=== PATIENT | male | born 1960 | race Caucasian/White ===

== ENCOUNTER 2017-11-05 21:29 | Emergency (ER) | payer OTHER ==
[~2017-11-05] VITALS: Ht 175.3 cm; Wt 79.4 kg
[~2017-11-05 21:29] MED LIST: ALBU90OI INH; ALBU90OI61 INH; BENADRYL25 MG PO; BENZ100A PO; Bactrim Ds Tab1 EACH PO; CEPH500 PO; CLIN300 PO; CLON1 PO; Colace100 MG PO; DOXE50 PO; DOXY100 PO; DOXY100T53 PO; FLUSAL2505 INH; FLUT44OIA INH; HYDACE10B PO; HYDACE5 PO; IBUP600 PO; IBUP800 PO; Keflex500 MG PO; L-THEANINE25 GM PO; LEVFLO500 PO; LISI10 PO; LISI5 PO; LOVA40 PO; OLAN20 MM; PALI3TAB IM; PARO30 PO; PAXIL; PRED20 PO; PROAIR RESPICL90 MCG IH; Prednisone20 MG PO; SULTRIDS PO; TIOT18 IH; TRAZODONE; TRIA80TC TOP; Trihexyphenidyl2 MG PO; Tussionex Penn480 ML PO; ZYPREXA; Zyprexa PO
[2017-11-05] MEDS ORDERED: ANORO ELLIPTA1 EACH INH (22:24)
[2017-11-05 22:30] LABS: BASOPHILS ABSOLUTE AUTO 0.06 K/mm3 (0.00-0.23); BASOPHILS PERCENT AUTO 1 % (0-2); EOSINOPHILS ABSOLUTE AUTO 0.79 K/mm3 (0.00-0.68); EOSINOPHILS PERCENT AUTO 7 % (0-6); Hemoglobin 13.5 g/dL (13.5-17.5); IMMATURE GRAN ABSOLUTE AUTO 0.13 K/mm3 (0.00-0.10); IMMATURE GRAN PERCENT AUTO 1 % (0-1); LYMPHOCYTES ABSOLUTE AUTO 2.95 K/mm3 (0.84-5.20); LYMPHOCYTES PERCENT AUTO 26 % (21-46); MONOCYTES ABSOLUTE AUTO 0.94 K/mm3 (0.16-1.47); MONOCYTES PERCENT AUTO 8 % (4-13); Mean Corpuscular HGB 33.3 pg (26.0-34.0); Mean Corpuscular HGB Conc 33.8 g/dL (31.5-36.5); Mean Corpuscular Volume 99 fL (80-100); Mean Platelet Volume 10.5 fL (9.1-12.4); NEUTROPHILS ABSOLUTE AUTO 6.34 K/mm3 (1.96-9.15); NEUTROPHILS PERCENT AUTO 57 % (41-73); Platelet Count 221 K/mm3 (150-400); RDW Coefficient Variation 12.6 % (11.7-14.2); RDW Standard Deviation 45.5 fL (35.1-46.3); Red Blood Cell Count 4.06 M/mm3 (4.30-5.90); White Blood Cell Count 11.21 K/mm3 (4.00-11.30)
[2017-11-05 22:51] LABS: Alanine Aminotransfer (ALT/SGP 30 U/L (12-78); Albumin, Blood 3.7 g/dL (3.4-5.0); Albumin/Globulin Ratio 1.3 (0.8-1.8); Alk Phos 89 U/L (50-136); Anion Gap 6 mmol/L (6-16); Aspartate Aminotrans (AST/SGOT 46 U/L (12-37); Bilirubin, Total 0.3 mg/dL (0.1-1.0); Blood Urea Nitrogen 17 mg/dL (8-24); Bun/Creatinine Ratio 15.3 (12.0-20.0); CO2, Blood 26 mmol/L (21-32); Calcium, Blood 8.1 mg/dL (8.5-10.1); Chloride, Blood 110 mmol/L (98-108); Creatinine, Blood 1.11 mg/dL (0.60-1.20); Globulin, Blood 2.9 g/dL (2.2-4.0); Glomerular Filtration Rate >60 (60-); Glucose, Blood 96 mg/dL (70-99); Potassium, Blood 4.7 mmol/L (3.5-5.5); Sodium, Blood 142 mmol/L (136-145); Total Protein, Blood 6.6 g/dL (6.4-8.2); Troponin I <0.015 ng/mL (0.000-0.040)
[2017-11-05] MEDS ORDERED: Prednisone20 MG PO (23:50)
[2017-11-05] MEDS ORDERED: SPIRIVA RESPIMAT4 G1 INH (23:50)
== END 2017-11-06 00:06 | disposition home or self-care (01) ==
LOC: ER 21:29
PROVIDERS: Emergency Medicine
DX: J44.1 Chronic obstructive pulmonary disease with (acute) exacerbation (principal); I10 Essential (primary) hypertension; F32.9 Major depressive disorder, single episode, unspecified; F17.200 Nicotine dependence, unspecified, uncomplicated; Z88.0 Allergy status to penicillin; Z88.8 Allergy status to other drugs, medicaments and biological substances; Z79.899 Other long term (current) drug therapy
CPT/HCPCS: 36415; 71046; 80053; 84484; 85025; 93005; 93010; 94640; 94644; 99284

== ENCOUNTER → 2018-08-03 | Outpatient (CLI) | payer OTHER ==
[~2018-08-03] MED LIST changes: +ALBU3IS; +ANORO ELLIPTA1 EACH INH; +BUDE6HFA INH; +Benadryl25 MG; +Bupropion Xl150 MG PO; +DIAZ10 PO; +PALIPERIDONE ER9 MG PO; +SPIRIVA RESPIMAT4 G1 INH; +SPIRIVA RESPIMAT4 GM
[2018-08-03 12:30] LABS: U Amphetamine Screen Not Detected; U Barbituate Screen Not Detected; U Benzodiazapine Screen DETECTED; U Cannabinoids Screen Not Detected; U Cocaine Screen Not Detected; U Methadone Screen Not Detected; U Methamphetamine Screen Not Detected; U Opiates Screen Not Detected; U Phencyclidine Screen Not Detected
[2018-08-03 12:31] LABS: U Buprenorphine Screen Not Detected; U Oxycodone Screen Not Detected; U Propoxyphene Screen Not Detected
== END ==
LOC: LAB SHORT 11:32 → LAB 11:32
PROVIDERS: Registered Nurse
DX: Z51.81 Encounter for therapeutic drug level monitoring (principal); Z79.899 Other long term (current) drug therapy

== ENCOUNTER 2018-08-09 22:57 | Emergency (ER) | payer OTHER ==
[~2018-08-09] VITALS: Ht 175.3 cm; Wt 75.8 kg
[~2018-08-09 22:57] MED LIST changes: -ALBU3IS; -BUDE6HFA INH; -Benadryl25 MG; -Bupropion Xl150 MG PO; -DIAZ10 PO; -PALIPERIDONE ER9 MG PO; -SPIRIVA RESPIMAT4 GM
[2018-08-09 23:25] LABS: BASOPHILS ABSOLUTE AUTO 0.01 K/mm3 (0.00-0.23); BASOPHILS PERCENT AUTO 0 % (0-2); EOSINOPHILS ABSOLUTE AUTO 0.14 K/mm3 (0.00-0.68); EOSINOPHILS PERCENT AUTO 2 % (0-6); Hematocrit 33.4 % (37.0-53.0); Hemoglobin 11.1 g/dL (13.5-17.5); IMMATURE GRAN ABSOLUTE AUTO 0.04 K/mm3 (0.00-0.10); IMMATURE GRAN PERCENT AUTO 1 % (0-1); LYMPHOCYTES ABSOLUTE AUTO 1.11 K/mm3 (0.84-5.20); LYMPHOCYTES PERCENT AUTO 17 % (21-46); MONOCYTES ABSOLUTE AUTO 0.72 K/mm3 (0.16-1.47); MONOCYTES PERCENT AUTO 11 % (4-13); Mean Corpuscular HGB 32.6 pg (26.0-34.0); Mean Corpuscular HGB Conc 33.2 g/dL (31.5-36.5); Mean Corpuscular Volume 98 fL (80-100); Mean Platelet Volume 9.6 fL (9.1-12.4); NEUTROPHILS ABSOLUTE AUTO 4.56 K/mm3 (1.96-9.15); NEUTROPHILS PERCENT AUTO 69 % (41-73); Platelet Count 189 K/mm3 (150-400); White Blood Cell Count 6.58 K/mm3 (4.00-11.30)
[2018-08-09] MEDS ORDERED: Benadryl25 MG (23:37)
[2018-08-09] MEDS ORDERED: DIAZ10 PO (23:37)
[2018-08-09] MEDS ORDERED: PALIPERIDONE ER9 MG PO (23:37)
[2018-08-09] MEDS ORDERED: Bupropion Xl150 MG PO (23:37)
[2018-08-09] MEDS ORDERED: BUDE6HFA INH (23:39)
[2018-08-09] MEDS ORDERED: SPIRIVA RESPIMAT4 GM (23:39)
[2018-08-09] MEDS ORDERED: ALBU3IS (23:39)
[2018-08-09 23:44] LABS: Troponin I <0.015 ng/mL (0.000-0.040)
[2018-08-09 23:45] LABS: Alanine Aminotransfer (ALT/SGP 22 U/L (12-78); Albumin, Blood 3.4 g/dL (3.4-5.0); Albumin/Globulin Ratio 1.5 (0.8-1.8); Alk Phos 63 U/L (50-136); Anion Gap 8 mmol/L (6-16); Aspartate Aminotrans (AST/SGOT 19 U/L (12-37); Bilirubin, Total 0.1 mg/dL (0.1-1.0); Blood Urea Nitrogen 19 mg/dL (8-24); Bun/Creatinine Ratio 20.8 (12.0-20.0); CO2, Blood 23 mmol/L (21-32); Calcium, Blood 7.7 mg/dL (8.5-10.1); Chloride, Blood 112 mmol/L (98-108); Creatinine, Blood 0.91 mg/dL (0.60-1.20); Globulin, Blood 2.3 g/dL (2.2-4.0); Glomerular Filtration Rate >60 (60-); Glucose, Blood 90 mg/dL (70-99); Potassium, Blood 3.5 mmol/L (3.5-5.5); Sodium, Blood 143 mmol/L (136-145); Total Protein, Blood 5.7 g/dL (6.4-8.2)
[2018-08-10] MEDS ORDERED: Prednisone20 MG PO (01:18)
== END 2018-08-10 01:35 | disposition home or self-care (01) ==
LOC: ER 22:57
PROVIDERS: Emergency Medicine
DX: J44.1 Chronic obstructive pulmonary disease with (acute) exacerbation (principal); Z88.0 Allergy status to penicillin; Z88.8 Allergy status to other drugs, medicaments and biological substances; Z79.899 Other long term (current) drug therapy; Z79.52 Long term (current) use of systemic steroids; I10 Essential (primary) hypertension; F20.9 Schizophrenia, unspecified; F32.9 Major depressive disorder, single episode, unspecified; F17.210 Nicotine dependence, cigarettes, uncomplicated
CPT/HCPCS: 36415; 71046; 80053; 84484; 85025; 93005; 93010; 94640; 94644; 96374; 99285-25; J2930

== ENCOUNTER → 2019-01-25 | Outpatient (CLI) | payer OTHER ==
[~2019-01-25] MED LIST changes: +ACET325 PO; +ALBU2.5V5 INH; +ALBU3IS NEB; +ATORVASTATIN CA10 MG PO; +Aspir 8181 MG PO; +BUDE6HFA INH; +BUPR100ER PO; +Banophen25 MG PO; +Benadryl25 MG PO; +Benztropine Mesy1 MG PO; +DIAZ10 PO; +DOCU100 PO; +FERSU300; +FINA5 PO; +FOLI400 PO; +FORFIVO XL450 MG PO; +IBU800 MG PO; +LOVA40; +Lovastatin20 MG PO; +NITR100CA PO; +OLAN5 PO; +OMEGA-3 FISH O1 EAC3 PO; +OMEP20ER PO; +PALI3TAB PO; +PALIPERIDONE ER9 MG PO; +Prednisone5 MG PO; +Prinivil10 MG PO; +SENN187 PO; +SPIRIVA RESPIMAT4 GM INH; +TAMS.4ER PO; +THERA1 EACH PO; +TRIDERM454 GM TOP; +Therems1 EACH PO; +Thiamine HCl100 MG PO; +Vitamin B Comple1 EA PO
[2019-01-25 13:15] LABS: U Amphetamine Screen Not Detected; U Barbituate Screen Not Detected; U Benzodiazapine Screen DETECTED; U Buprenorphine Screen Not Detected; U Cannabinoids Screen Not Detected; U Cocaine Screen Not Detected; U Methadone Screen Not Detected; U Methamphetamine Screen Not Detected; U Opiates Screen Not Detected; U Oxycodone Screen Not Detected; U Phencyclidine Screen Not Detected; U Propoxyphene Screen Not Detected
== END ==
LOC: LAB 12:49 → LAB SHORT 12:49
PROVIDERS: Registered Nurse
DX: Z51.81 Encounter for therapeutic drug level monitoring (principal); Z79.899 Other long term (current) drug therapy

== ENCOUNTER 2019-01-30 21:04 | Emergency (ER) | payer OTHER ==
[~2019-01-30] VITALS: Ht 180.3 cm; Wt 86.2 kg
[~2019-01-30 21:04] MED LIST changes: -ACET325 PO; -ALBU2.5V5 INH; -ALBU3IS NEB; -ALBU90OI61 INH; -ATORVASTATIN CA10 MG PO; -Aspir 8181 MG PO; -BUDE6HFA INH; -BUPR100ER PO; -Banophen25 MG PO; -Benadryl25 MG PO; -Benztropine Mesy1 MG PO; -CLON1 PO; -DIAZ10 PO; -DOCU100 PO; -FERSU300; -FINA5 PO; -FOLI400 PO; -FORFIVO XL450 MG PO; -IBU800 MG PO; -L-THEANINE25 GM PO; -LOVA40; -LOVA40 PO; -Lovastatin20 MG PO; -NITR100CA PO; -OLAN5 PO; -OMEGA-3 FISH O1 EAC3 PO; -OMEP20ER PO; -PALI3TAB PO; -PALIPERIDONE ER9 MG PO; -Prednisone5 MG PO; -Prinivil10 MG PO; -SENN187 PO; -SPIRIVA RESPIMAT4 GM INH; -TAMS.4ER PO; -THERA1 EACH PO; -TRIDERM454 GM TOP; -Therems1 EACH PO; -Thiamine HCl100 MG PO; -Vitamin B Comple1 EA PO
[2019-01-30 21:24] LABS: BASOPHILS ABSOLUTE AUTO 0.05 K/mm3 (0.00-0.23); BASOPHILS PERCENT AUTO 0 % (0-2); EOSINOPHILS ABSOLUTE AUTO 0.44 K/mm3 (0.00-0.68); EOSINOPHILS PERCENT AUTO 3 % (0-6); Hematocrit 39.3 % (37.0-53.0); Hemoglobin 13.5 g/dL (13.5-17.5); IMMATURE GRAN ABSOLUTE AUTO 0.21 K/mm3 (0.00-0.10); IMMATURE GRAN PERCENT AUTO 2 % (0-1); LYMPHOCYTES ABSOLUTE AUTO 1.56 K/mm3 (0.84-5.20); LYMPHOCYTES PERCENT AUTO 12 % (21-46); MONOCYTES PERCENT AUTO 8 % (4-13); Mean Corpuscular HGB 32.1 pg (26.0-34.0); Mean Corpuscular HGB Conc 34.4 g/dL (31.5-36.5); Mean Corpuscular Volume 93 fL (80-100); Mean Platelet Volume 9.7 fL (9.1-12.4); NEUTROPHILS ABSOLUTE AUTO 9.97 K/mm3 (1.96-9.15); NEUTROPHILS PERCENT AUTO 75 % (41-73); Platelet Count 234 K/mm3 (150-400); RDW Standard Deviation 44.3 fL (35.1-46.3); Red Blood Cell Count 4.21 M/mm3 (4.30-5.90); White Blood Cell Count 13.23 K/mm3 (4.00-11.30)
[2019-01-30 21:43] LABS: Alanine Aminotransfer (ALT/SGP 26 U/L (12-78); Albumin, Blood 3.7 g/dL (3.4-5.0); Albumin/Globulin Ratio 1.5 (0.8-1.8); Alk Phos 79 U/L (50-136); Anion Gap 10 mmol/L (6-16); Aspartate Aminotrans (AST/SGOT 30 U/L (12-37); Bilirubin, Total 0.4 mg/dL (0.1-1.0); Blood Urea Nitrogen 18 mg/dL (8-24); Bun/Creatinine Ratio 16.1 (12.0-20.0); CO2, Blood 20 mmol/L (21-32); Calcium, Blood 8.4 mg/dL (8.5-10.1); Chloride, Blood 108 mmol/L (98-108); Creatinine, Blood 1.12 mg/dL (0.60-1.20); Ethanol (Alcohol), Blood, Med <3 mg/dL; Globulin, Blood 2.4 g/dL (2.2-4.0); Glomerular Filtration Rate >60 (60-); Glucose, Blood 89 mg/dL (70-99); Potassium, Blood 3.7 mmol/L (3.5-5.5); Sodium, Blood 138 mmol/L (136-145); Total Protein, Blood 6.1 g/dL (6.4-8.2)
[2019-01-30 22:18] LABS: Acetaminophen, Random <2.0 ug/mL (10.0-30.0); Salicylate 2.4 mg/dL (2.8-20.0); Valproic Acid 5.1 ug/mL (50.0-100.0)
[2019-01-30 22:54] LABS: U Amphetamine Screen Not Detected; U Barbituate Screen Not Detected; U Benzodiazapine Screen DETECTED; U Buprenorphine Screen Not Detected; U Cannabinoids Screen Not Detected; U Cocaine Screen Not Detected; U Methadone Screen Not Detected; U Methamphetamine Screen Not Detected; U Opiates Screen Not Detected; U Oxycodone Screen Not Detected; U Phencyclidine Screen Not Detected; U Propoxyphene Screen Not Detected
[2019-01-30 23:02] LABS: Source, Urine Catheter
[2019-01-30 23:05] LABS: Bilirubin, Urine Neg (Neg); Blood, Urine Neg (Neg); Glucose Qualitative, Urine Neg (Neg); Ketones, Urine Neg (Neg); Leukocyte Esterase, Urine Neg (Neg); Nitrite, Urine Neg (Neg); Protein, Urine Neg (Neg); Urobilinogen, Urine NORM (Normal); pH, Urine 6.5 (5.0-8.0)
[2019-01-30 23:10] LABS: Appearance, Urine Clear (Clear); Color, Urine Yellow (P-Yellow)
== END 2019-01-31 00:52 | disposition home or self-care (01) ==
LOC: ER 21:04
PROVIDERS: Emergency Medicine
DX: R41.82 Altered mental status, unspecified (principal); Z88.0 Allergy status to penicillin; Z88.8 Allergy status to other drugs, medicaments and biological substances; Z79.899 Other long term (current) drug therapy; Z79.52 Long term (current) use of systemic steroids; I10 Essential (primary) hypertension; J45.909 Unspecified asthma, uncomplicated; J44.9 Chronic obstructive pulmonary disease, unspecified; F20.9 Schizophrenia, unspecified; F17.210 Nicotine dependence, cigarettes, uncomplicated
CPT/HCPCS: 36415; 51701; 70450; 80053; 80164; 81003; 85025; 93005; 93010; 99285-25; G0480

== ENCOUNTER 2019-01-31 15:25 | Emergency (ER) | payer OTHER ==
[~2019-01-31] VITALS: Ht 175.3 cm; Wt 86.2 kg
[2019-01-31 17:53] LABS: Source, Urine Voided
[2019-01-31 17:57] LABS: BASOPHILS ABSOLUTE AUTO 0.05 K/mm3 (0.00-0.23); BASOPHILS PERCENT AUTO 0 % (0-2); EOSINOPHILS ABSOLUTE AUTO 0.44 K/mm3 (0.00-0.68); EOSINOPHILS PERCENT AUTO 4 % (0-6); Hematocrit 37.2 % (37.0-53.0); IMMATURE GRAN ABSOLUTE AUTO 0.13 K/mm3 (0.00-0.10); IMMATURE GRAN PERCENT AUTO 1 % (0-1); LYMPHOCYTES ABSOLUTE AUTO 1.75 K/mm3 (0.84-5.20); LYMPHOCYTES PERCENT AUTO 15 % (21-46); MONOCYTES ABSOLUTE AUTO 0.97 K/mm3 (0.16-1.47); MONOCYTES PERCENT AUTO 8 % (4-13); Mean Corpuscular HGB 32.7 pg (26.0-34.0); Mean Corpuscular HGB Conc 34.9 g/dL (31.5-36.5); Mean Corpuscular Volume 94 fL (80-100); Mean Platelet Volume 9.8 fL (9.1-12.4); NEUTROPHILS ABSOLUTE AUTO 8.27 K/mm3 (1.96-9.15); NEUTROPHILS PERCENT AUTO 71 % (41-73); Platelet Count 234 K/mm3 (150-400); RDW Standard Deviation 44.3 fL (35.1-46.3); Red Blood Cell Count 3.98 M/mm3 (4.30-5.90); White Blood Cell Count 11.61 K/mm3 (4.00-11.30)
[2019-01-31 18:23] LABS: Alanine Aminotransfer (ALT/SGP 29 U/L (12-78); Albumin, Blood 3.8 g/dL (3.4-5.0); Albumin/Globulin Ratio 1.7 (0.8-1.8); Alk Phos 77 U/L (50-136); Anion Gap 5 mmol/L (6-16); Aspartate Aminotrans (AST/SGOT 31 U/L (12-37); Bilirubin, Total 0.5 mg/dL (0.1-1.0); Blood Urea Nitrogen 13 mg/dL (8-24); Bun/Creatinine Ratio 14.9 (12.0-20.0); CO2, Blood 24 mmol/L (21-32); Calcium, Blood 8.5 mg/dL (8.5-10.1); Chloride, Blood 110 mmol/L (98-108); Creatinine, Blood 0.87 mg/dL (0.60-1.20); Ethanol (Alcohol), Blood, Med <3 mg/dL; Globulin, Blood 2.3 g/dL (2.2-4.0); Glomerular Filtration Rate >60 (60-); Glucose, Blood 83 mg/dL (70-99); Potassium, Blood 3.7 mmol/L (3.5-5.5); Salicylate 2.1 mg/dL (2.8-20.0); Sodium, Blood 139 mmol/L (136-145); Total Protein, Blood 6.1 g/dL (6.4-8.2)
[2019-01-31 18:27] LABS: Bilirubin, Urine Neg (Neg); Blood, Urine Neg (Neg); Glucose Qualitative, Urine Neg (Neg); Ketones, Urine Neg (Neg); Leukocyte Esterase, Urine Neg (Neg); Nitrite, Urine Neg (Neg); Protein, Urine Neg (Neg); Urobilinogen, Urine NORM (Normal)
[2019-01-31 18:35] LABS: Acetaminophen, Random <2.0 ug/mL (10.0-30.0)
[2019-01-31 18:41] LABS: Appearance, Urine Clear (Clear); Color, Urine Yellow (P-Yellow)
[2019-01-31 18:59] LABS: U Amphetamine Screen Not Detected; U Barbituate Screen Not Detected; U Benzodiazapine Screen DETECTED; U Buprenorphine Screen Not Detected; U Cannabinoids Screen Not Detected; U Cocaine Screen Not Detected; U Methadone Screen Not Detected; U Methamphetamine Screen Not Detected; U Opiates Screen Not Detected; U Oxycodone Screen Not Detected; U Phencyclidine Screen Not Detected; U Propoxyphene Screen Not Detected
== END 2019-01-31 19:45 | disposition home or self-care (01) ==
LOC: ER 15:25
PROVIDERS: Emergency Medicine
DX: F32.9 Major depressive disorder, single episode, unspecified (principal); F20.9 Schizophrenia, unspecified; I10 Essential (primary) hypertension; J44.9 Chronic obstructive pulmonary disease, unspecified; F17.210 Nicotine dependence, cigarettes, uncomplicated; Z88.0 Allergy status to penicillin; Z88.8 Allergy status to other drugs, medicaments and biological substances; Z79.899 Other long term (current) drug therapy
CPT/HCPCS: 70450; 80053; 81003; 84443; 85025; 93005; 93010; 99285-25; G0480

== ENCOUNTER 2019-02-08 10:41 | Inpatient (IN) | payer OTHER ==
[~2019-02-08] VITALS: Ht 175.3 cm; Wt 71.5 kg
[2019-02-08] MEDS ORDERED: FERSU300 (11:15)
[2019-02-08] MEDS ORDERED: LOVA40 (11:15)
[2019-02-08 12:30] LABS: BASOPHILS ABSOLUTE AUTO 0.02 K/mm3 (0.00-0.23); BASOPHILS PERCENT AUTO 0 % (0-2); EOSINOPHILS ABSOLUTE AUTO 0.06 K/mm3 (0.00-0.68); EOSINOPHILS PERCENT AUTO 1 % (0-6); Hematocrit 42.4 % (37.0-53.0); Hemoglobin 14.4 g/dL (13.5-17.5); IMMATURE GRAN ABSOLUTE AUTO 0.05 K/mm3 (0.00-0.10); IMMATURE GRAN PERCENT AUTO 1 % (0-1); LYMPHOCYTES ABSOLUTE AUTO 0.77 K/mm3 (0.84-5.20); LYMPHOCYTES PERCENT AUTO 9 % (21-46); MONOCYTES ABSOLUTE AUTO 0.71 K/mm3 (0.16-1.47); MONOCYTES PERCENT AUTO 8 % (4-13); Mean Corpuscular HGB 32.1 pg (26.0-34.0); Mean Corpuscular Volume 94 fL (80-100); Mean Platelet Volume 10.1 fL (9.1-12.4); NEUTROPHILS ABSOLUTE AUTO 6.85 K/mm3 (1.96-9.15); NEUTROPHILS PERCENT AUTO 81 % (41-73); Platelet Count 207 K/mm3 (150-400); RDW Coefficient Variation 13.1 % (11.7-14.2); RDW Standard Deviation 45.4 fL (35.1-46.3); Red Blood Cell Count 4.49 M/mm3 (4.30-5.90); White Blood Cell Count 8.46 K/mm3 (4.00-11.30)
[2019-02-08 12:45] LABS: International Normalized Ratio 1.04
[2019-02-08 13:01] LABS: Ethanol (Alcohol), Blood, Med <3 mg/dL
[2019-02-08 13:07] LABS: Acetaminophen, Random <2.0 ug/mL (10.0-30.0); Salicylate 2.2 mg/dL (2.8-20.0)
[2019-02-08 14:30] LABS: Alanine Aminotransfer (ALT/SGP 51 U/L (12-78); Albumin, Blood 3.8 g/dL (3.4-5.0); Albumin/Globulin Ratio 1.5 (0.8-1.8); Alk Phos 81 U/L (50-136); Anion Gap 10 mmol/L (6-16); Aspartate Aminotrans (AST/SGOT 132 U/L (12-37); Bilirubin, Total 0.4 mg/dL (0.1-1.0); Blood Urea Nitrogen 11 mg/dL (8-24); Bun/Creatinine Ratio 14.1 (12.0-20.0); CO2, Blood 19 mmol/L (21-32); Calcium, Blood 8.4 mg/dL (8.5-10.1); Chloride, Blood 109 mmol/L (98-108); Creatinine, Blood 0.78 mg/dL (0.60-1.20); Globulin, Blood 2.6 g/dL (2.2-4.0); Glomerular Filtration Rate >60 (60-); Glucose, Blood 92 mg/dL (70-99); Potassium, Blood 3.8 mmol/L (3.5-5.5); Sodium, Blood 138 mmol/L (136-145); Total Protein, Blood 6.4 g/dL (6.4-8.2)
[2019-02-08] MEDS ORDERED: DIAZ10 PO ×2 (16:12→16:15)
[2019-02-08] MEDS ORDERED: BUPR100ER PO (16:13)
[2019-02-08] MEDS ORDERED: PALIPERIDONE ER9 MG PO (16:13)
[2019-02-08] MEDS ORDERED: Prednisone5 MG PO (16:14)
[2019-02-08] MEDS ORDERED: ATORVASTATIN CA10 MG PO (16:14)
[2019-02-08] MEDS ORDERED: Aspir 8181 MG PO (16:14)
[2019-02-08] MEDS ORDERED: Benztropine Mesy1 MG PO (16:14)
[2019-02-08] MEDS ORDERED: OMEGA-3 FISH O1 EAC3 PO (16:15)
[2019-02-08] MEDS ORDERED: Prinivil10 MG PO (16:17)
[2019-02-08] MEDS ORDERED: Lovastatin20 MG PO (16:18)
[2019-02-08] MEDS ORDERED: Benadryl25 MG PO (16:21)
[2019-02-08] MEDS ORDERED: OMEP20ER PO (16:22)
[2019-02-08] MEDS ORDERED: BUDE6HFA INH (16:22)
[2019-02-08] MEDS ORDERED: IBU800 MG PO (16:22)
[2019-02-08] MEDS ORDERED: SPIRIVA RESPIMAT4 GM INH (16:24)
[2019-02-08] MEDS ORDERED: ALBU90OI61 INH (16:26)
[2019-02-08 16:37] LABS: Creatine Kinase MB Index 1.7 (0.0-4.0)
[2019-02-08] MEDS ORDERED: ALBU2.5V5 INH (16:58)
[2019-02-08] MEDS ORDERED: TRIDERM454 GM TOP (17:01)
[2019-02-08] MEDS ORDERED: CLON1 PO (17:04)
[2019-02-08] MEDS ORDERED: ALBU3IS NEB (17:05)
[2019-02-08] MEDS ORDERED: L-THEANINE25 GM PO (17:06)
[2019-02-08 20:54] LABS: Base Excess Venous -6.1 mmol/L; Bicarbonate Venous 19.2 mmol/L (24.0-30.0); PCO2 Venous 42.9 mmHg (38-42); PO2 Venous 47.4 mmHg (38-42); pH Blood Venous 7.29 (7.34-7.37)
[2019-02-09 02:23] LABS: Source, Urine Voided
[2019-02-09 02:36] LABS: Bilirubin, Urine Neg (Neg); Blood, Urine 5+ (Neg); Glucose Qualitative, Urine Neg (Neg); Ketones, Urine 3+ (Neg); Leukocyte Esterase, Urine Neg (Neg); Nitrite, Urine Neg (Neg); Protein, Urine 2+ (Neg); Specific Gravity, Urine 1.015 (1.003-1.022); Urobilinogen, Urine NORM (Normal)
--- NOTE | 2019-02-09 02:41 | NUR ---
URINARY RETENTION DAUGHTER HAD REPORTED THAT PT HAD NOT VOIDED FAR SHE HAD KNOWN AND SHE HAD BEEN WITH PATIENT SINCE 1400. ATTEMPTED TO GET PT UP TO VOID. PT WAS NOT ABLE TO VOID. BLADDER SCANNED AND READING SAID >1L. NOTIFIED DR. SALAS. NEW ORDER FOR X 1 STRAIGHT CATH AND TO BLADDER SCAN AGAIN IN 6 HOURS. STRAIGHT CATHED WITH 1800 ML OUTPUT WITH A POST CATH BLADDER SCAN READING 160 ML. PT TOLERATED WELL.
[2019-02-09 02:42] LABS: Amorphous Light (0-Heavy); Appearance, Urine Clear (Clear); Bacteria Not Seen /hpf; Color, Urine Amber (P-Yellow); Red Blood Cells, Urine 0-2 /hpf (0-2); Squamous Epithelial Cells Rare /hpf (Few); White Blood Cells, Urine Rare /hpf (0-5)
[2019-02-09 02:45] LABS: U Amphetamine Screen Not Detected; U Barbituate Screen Not Detected; U Methamphetamine Screen Not Detected
[2019-02-09 02:46] LABS: U Benzodiazapine Screen DETECTED; U Buprenorphine Screen Not Detected; U Cannabinoids Screen Not Detected; U Cocaine Screen Not Detected; U Methadone Screen Not Detected; U Opiates Screen Not Detected; U Oxycodone Screen Not Detected; U Phencyclidine Screen Not Detected; U Propoxyphene Screen Not Detected
--- NOTE | 2019-02-09 04:32 | NUR ---
SHIFT SUMMARY PT NEW ED ADMIT THIS EVENING. DAUGHTER CAME UP WITH PT FROM ED AND ASSISTED WITH PT'S MEDICAL HISTORY BUT ADMITS SHE DOES NOT KNOW VERY MUCH THEY ARE NOT CLOSE. PT IS CONFUSED. KNOWS HE IS IN [place] AND WHO HE IS AND WHO IS DAUGHTER IS. TALKED ABOUT HIS PAST WORK. PT FREQUENTLY RAMBLES OFF SUBJECT WHEN ASKED A QUESTION. DIFFICULT TO UNDERSTAND. THIS MAY BE PARTIALLY BECAUSE PT DOES NOT HAVE ANY TEETH. PT ATTEMPTED TO VOID MULTIPLE TIMES BUT WAS UNABLE TO, STRAIGHT CATH PERFORMED. SEE PREVIOUS NOTE. RFA SWOLLEN AND RED. CIRCUMFERENCE TAKE AND IT WAS 30.5 CM. PICTURES TAKEN AND PLACED IN CHART. SPLINT PUT ON IN ED. TAKEN OFF TO EXAMINE AND REPLACED. PT HAS HAD NO COMPLAINTS OF PAIN. PT SLEPT THROUGH THE NIGHT WHEN NOT BEING WOKEN BY STAFF. TELEMETRY UNIT PLACED, READING SR IN THE 80'S. VITAL SIGNS STABLE. WILL CONTINUE TO MONITOR.
[2019-02-09 05:35] LABS: BASOPHILS ABSOLUTE AUTO 0.03 K/mm3 (0.00-0.23); BASOPHILS PERCENT AUTO 0 % (0-2); EOSINOPHILS ABSOLUTE AUTO 0.42 K/mm3 (0.00-0.68); EOSINOPHILS PERCENT AUTO 6 % (0-6); Hematocrit 40.2 % (37.0-53.0); Hemoglobin 13.7 g/dL (13.5-17.5); IMMATURE GRAN ABSOLUTE AUTO 0.03 K/mm3 (0.00-0.10); IMMATURE GRAN PERCENT AUTO 0 % (0-1); LYMPHOCYTES ABSOLUTE AUTO 1.41 K/mm3 (0.84-5.20); LYMPHOCYTES PERCENT AUTO 18 % (21-46); MONOCYTES ABSOLUTE AUTO 0.97 K/mm3 (0.16-1.47); MONOCYTES PERCENT AUTO 13 % (4-13); Mean Corpuscular HGB 31.6 pg (26.0-34.0); Mean Corpuscular HGB Conc 34.1 g/dL (31.5-36.5); Mean Corpuscular Volume 93 fL (80-100); Mean Platelet Volume 10.4 fL (9.1-12.4); NEUTROPHILS ABSOLUTE AUTO 4.81 K/mm3 (1.96-9.15); NEUTROPHILS PERCENT AUTO 63 % (41-73); Platelet Count 207 K/mm3 (150-400); RDW Coefficient Variation 13.3 % (11.7-14.2); RDW Standard Deviation 45.5 fL (35.1-46.3); Red Blood Cell Count 4.34 M/mm3 (4.30-5.90); White Blood Cell Count 7.67 K/mm3 (4.00-11.30)
[2019-02-09 06:03] LABS: Albumin, Blood 2.9 g/dL (3.4-5.0); Anion Gap 8 mmol/L (6-16); Blood Urea Nitrogen 8 mg/dL (8-24); Bun/Creatinine Ratio 11.5 (12.0-20.0); CO2, Blood 23 mmol/L (21-32); Calcium, Blood 7.9 mg/dL (8.5-10.1); Chloride, Blood 109 mmol/L (98-108); Creatinine, Blood 0.69 mg/dL (0.60-1.20); Glomerular Filtration Rate >60 (60-); Glucose, Blood 87 mg/dL (70-99); Phosphorus, Blood 2.5 mg/dL (2.5-4.9); Potassium, Blood 3.4 mmol/L (3.5-5.5); Sodium, Blood 140 mmol/L (136-145)
[2019-02-09 06:30] LABS: CPK Creatine Kinase 13852 U/L (39-308)
--- NOTE | 2019-02-09 11:55 | NUR ---
DR TAVARES IN ROOM. HE UNWRAPPED ARM. STATES LOOKS BETTER. SWELLING AND REDNESS IMPROVED. REMEASURED ARM CIRCUMFRENCE. 30.5 CM AT [address]AL [facility] FOLEY.
--- NOTE | 2019-02-09 18:26 | NUR ---
PT PLEASANT TODAY. PAIN MANAGED WITH NEW ULTRAM TO PT SATISFACTION. REMAINS OCC HALLUCINATIONS. SOME CONFUSION, SOME NORMAL RESPONSES. PT HAS BEEN UP TO BATHROOM. VOIDS SOME. SURG DR IN TO REMOVE SOFT CAST TODAY. STATES IS PLEASED WITH IMPROVEMENT IN SWELLING AND COLOR. DR REWRAPPED. NO OTHER CONCERNS AT THIS TIME. BED IN LOW POSITION,C ALL LITE IN REACH, CALLS APPROP
--- NOTE | 2019-02-10 07:16 | NUR ---
confused/short term memory issues, knows self, location and reason for being here but forgets how to get to the bathroom, unsteady on feet, LR running in to l arm with no s/sx of infection or infiltration, room air, spent most of the shift sleeping, bladder scanned three times, srt cath'd twice when volumn exceeded, both time post cath scan less than 30, bsr given to day staff
[2019-02-10 07:30] LABS: BASOPHILS ABSOLUTE AUTO 0.02 K/mm3 (0.00-0.23); BASOPHILS PERCENT AUTO 0 % (0-2); EOSINOPHILS ABSOLUTE AUTO 0.51 K/mm3 (0.00-0.68); EOSINOPHILS PERCENT AUTO 9 % (0-6); Hematocrit 36.3 % (37.0-53.0); Hemoglobin 12.4 g/dL (13.5-17.5); IMMATURE GRAN ABSOLUTE AUTO 0.05 K/mm3 (0.00-0.10); IMMATURE GRAN PERCENT AUTO 1 % (0-1); LYMPHOCYTES ABSOLUTE AUTO 1.57 K/mm3 (0.84-5.20); LYMPHOCYTES PERCENT AUTO 28 % (21-46); MONOCYTES ABSOLUTE AUTO 0.75 K/mm3 (0.16-1.47); MONOCYTES PERCENT AUTO 13 % (4-13); Mean Corpuscular HGB 32.3 pg (26.0-34.0); Mean Corpuscular HGB Conc 34.2 g/dL (31.5-36.5); Mean Corpuscular Volume 95 fL (80-100); Mean Platelet Volume 10.7 fL (9.1-12.4); NEUTROPHILS PERCENT AUTO 48 % (41-73); Platelet Count 184 K/mm3 (150-400); RDW Coefficient Variation 13.7 % (11.7-14.2); RDW Standard Deviation 46.9 fL (35.1-46.3); Red Blood Cell Count 3.84 M/mm3 (4.30-5.90)
[2019-02-10 07:55] LABS: Alanine Aminotransfer (ALT/SGP 154 U/L (12-78); Albumin, Blood 2.7 g/dL (3.4-5.0); Albumin/Globulin Ratio 1.2 (0.8-1.8); Alk Phos 57 U/L (50-136); Anion Gap 4 mmol/L (6-16); Aspartate Aminotrans (AST/SGOT 430 U/L (12-37); Bilirubin, Total 0.3 mg/dL (0.1-1.0); Blood Urea Nitrogen 9 mg/dL (8-24); CO2, Blood 26 mmol/L (21-32); Calcium, Blood 8.1 mg/dL (8.5-10.1); Chloride, Blood 111 mmol/L (98-108); Creatinine, Blood 0.75 mg/dL (0.60-1.20); Globulin, Blood 2.2 g/dL (2.2-4.0); Glomerular Filtration Rate >60 (60-); Glucose, Blood 85 mg/dL (70-99); Potassium, Blood 3.6 mmol/L (3.5-5.5); Sodium, Blood 141 mmol/L (136-145); Total Protein, Blood 4.9 g/dL (6.4-8.2)
--- NOTE | 2019-02-10 22:38 | NUR ---
PATIENT BED EXIT X THREE. LAST EXIT PATIENT OUT INTO THE [place]. ON MONITOR. PATIENT HAVING INCREASED AGITATION AND YELLING AT STAFF. PATIENT NOT ABLE TO REORIENT. PATIENT BACK IN BED. ALARM ACTIVATED.
--- NOTE | 2019-02-10 23:14 | NUR ---
MONITOR REPORTS PATIENT UNWRAPPING RENALDO BANDAGE ON RIGHT ARM SPLINT. BANDAGE REWRAPPED. PATIENT NOT ABLE TO FOLLOW DIRECTIONS. WILL CONTINUE TO MONITOR.
--- NOTE | 2019-02-11 00:46 | NUR ---
PATIENT ATTEMPT BED EXIT. ALARM ACTIVATED. PATIENT REPOSITIONED BACK INTO BED. WILL CONTINUE TO MONITOR.
--- NOTE | 2019-02-11 01:54 | NUR ---
PATIENT PULLED RENALDO BANDAGE OFF RIGHT ARM SPLINT FOR THE THIRD TIME. WILL CALL FOR NATASHA VEST AND BILATERAL SOFT WRIST RESTRAINTS.
--- NOTE | 2019-02-11 02:19 | NUR ---
NATASHA VEST AND BILATERAL SOFT WRIST RESTRAINTS ORDERED BY HOSPITALIST DR SALAS. PATIENT BED EXIT OVER FIVE TIMES AND OUT INTO HALLWAY. PULLED OFF RENALDO BANDAGE ON RIGHT ARM SPLINT X THREE. PULLED OUT IV.
--- NOTE | 2019-02-11 03:54 | NUR ---
SHIFT SUMMARY PATIENT HAD INCREASED AGITATION AT TIMES THIS SHIFT. OVER FIVE BED EXITS WITH ONE TIME WALKED OUT INTO BEN[place]TE[place] PER MONITOR. PATIENT UNABLE TO REORIENT. PATIENT UNWRAPPED HIS RENALDO BANDAGE FROM RIGHT ARM SPLINT OVER SIX [address] SALAS ORDERED NATASHA VEST AND BILATERAL SOFT WRIST RESTRAINTS. NEW PIV PLACED. LR INFUSING AT 150 mL/HR. ALERT TO SELF. PATIENT VOIDING. REPORTED RIGHT ARM PAIN AND RECEIVED ULTRAM PER EMAR. CALL LIGHT IN REACH. BED ALARM ACTIVATED. WILL CONTINUE TO MONITOR UNTIL DAY SHIFT NURSE ASSUMES CARE.
--- NOTE | 2019-02-11 18:36 | NUR ---
PATIENT CONTINUES TO BE VERY CONFUSED AND HAS BEEN HAVING HALLUCINATIONS THROUGHOUT THE DAY. HE IS REDIRECTABLE BUT VERY IMPULSIVE . HE IS ORIENTED TO SELF . HE IS PLEASANT AND COOPERATIVE WHEN GIVEN DIRECT ORDERS BUT QUICKLY FORGETS . DUE TO HIS HALLUCINATIONS HE OFTEN ATTEMPTS TO GET UP OR LEANS FAR OVER HIS BED TO RETRIEVE WHATEVER HE IS IMAGINING IS THERE. HIS DAUGHTER HAS COME TO SEE HIM . SHE WORKS HERE AT THE HOSPITAL AND HAS BEEN USEFUL IN OBTAINING HISTORY ON HIM. PATIENT HAS HAD GOOD OUTPUT AND HAS A MUCH EASIER TIME VOIDING WHEN HE IS ACTUALLY STANDING AT THE COMMODE RATHER THAN SITTING ON IT. NO CATHING REQUIRED THIS SHIFT.
--- NOTE | 2019-02-11 22:04 | NUR ---
PATIENT TRYING TO EXIT BED PER MONITOR. PULLING RENALDO BANDAGE OFF RIGHT SPLINT. REWRAPPED. RESTRAINTS ADJUSTED. WILL CONTINUE TO MONITOR.
--- NOTE | 2019-02-11 23:15 | NUR ---
PATIENT SLEEPING. WAS AWAKE LAST FULL NOCX SHIFT. WILL CONTINUE TO MONITOR.
--- NOTE | 2019-02-12 04:12 | NUR ---
SHIFT SUMMARY PATIENT STARTED SHIFT TRYING TO EXIT BED PER MONITOR. PATIENT NEXT UNWRAPPED HIS R ARM SPLINT RENALDO BANDAGE. RESTRAINTS READJUSTED. AXO X2 WITH VISUAL HALLUCINATIONS SEEING OBJECTS ON WHITE BOARD WALL. PIV REMAINS INTACT. ULTRAM 50 MG GIVEN FOR R ARM PAIN PER EMAR X ONE. PATIENT ABLE TO VOID ONLY STANDING AT THIS TIME. PATIENT DID NOT SLEEP LAST [facility] SHIFT AND WAS ABLE TO AFTER ASSESSMENT FOR MOST OF THE SHIFT. VSS/AFEBRILE. DENIES SOB AND N/V. BED ALARM ACTIVATED. CALL LIGHT IN REACH. WILL CONTINUE TO MONITOR UNTIL DAY SHIFT NURSE ASSUMES CARE.
--- NOTE | 2019-02-12 17:14 | NUR ---
Initial Visit: Palliative Care Consult for AD/POLST. Pt is A&Ox2 and denies pain at this time. He is unable to appropriately state place and reason for stay. He does state the current year. 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 He appears comfortable with no S/S of distress at this time. Spoke with Pt's daughter Renetta outside of Pt's room. Engaged in therapeutic discussion regarding AD/POLST. Maggie expresses interest and education was provided on each section to complete for POLST and AD including life sustaining measures. Maggie reports she will complete POLST after further discussion with her siblings. No other concerns reported at this time. Palliative Care will remain available.
--- NOTE | 2019-02-12 18:35 | NUR ---
SHIFT SUMMARY PT HAS BEEN PLEANSANTLY CONFUSED THIS SHIFT. PT COOPERATIVE WITH CARE. RESTRAINTS REMOVED THIS EVENING. RN AMBULATED PT IN HALLS AND HE WAS VERY STEADY ON FEET. PT CONTINUES TO BE IMPULSIVE BUT STEADY. NO COMPLAINTS OF PAIN THIS SHIFT. PT DOES REMOVE RENALDO WRAP TO RIGHT ARM OFTEN. PT FORGETFUL AND DOES NOT REMEMBER WHY HE HAS IT ON. DR. ORTIZ INTO SEE PT THIS EVNEING AND CHANGED MEDICATIONS. PT WILL NEED GAURDIANSHIP. NO ACUTE CHANGES THIS SHIFT. WILL CONTINUE TO MONITOR AND REPORT TO ONCOMING RN. CALL LIGHT IN REACH AND CHAIR ALARM ON FOR SAFETY.
--- NOTE | 2019-02-13 06:26 | NUR ---
SHIFT SUMMARY PATIENT IS ALERT AND ORIENTED TO SELF. PATIENT DID HAVE SOME VISUAL HALLUCINATIONS. PATIENT WANDERED INTO HALLWAY MULTIPLE TIMES AT BEGINING OF SHIFT. PATIENT WAS ASSISTED TO BED AND SLEPT WELL THROUGHOUT THE NIGHT. NO COMPLAINTS OF PAIN. VITALS STABLE. NO NEW CHANGES. NO RESTRAINTS.
--- NOTE | 2019-02-13 18:37 | NUR ---
SHIFT SUMMARY PT HAS BEEN AMBULATING IN ROOM AND HALLS AND VERY STEADY ON FEET. PT CONTINUES TO BE PLEASANTLY CONFUSED. PT DID HAVE SOME VISUAL HALLUCINATION THIS EVENING AND THOUGHT SOMEONE WAS TALKING TO HIM FROM THE COMPUTER. PT EASILY REDIRECTED. NO COMPLAINTS THIS SHIFT. WAITING FOR GAURDIANSHIP AND PLACEMENT.
--- NOTE | 2019-02-14 06:36 | NUR ---
SHIFT SUMMARY PT IS A 58 Y/O MALE, ADMITTED FOR ENCEPHALOPATHY. HE IS A&O X SELF ONLY, AND IS UP AND DOWN OUT OF BED IN HIS ROOM WHILE AWAKE. HE WAS MEDICATED ONCE WITH PRN TRAMADOL FOR PAIN IN HIS R ARM. NO COMPLAINTS OF NAUSEA OR SOB. PT SLEPT WELL AFTER RECEIVING PAIN MEDS. PT'S HEART RATE WAS SLIGHTLY TACHY AT 100-110S AT START OF SHIFT, BUT CAME DOWN TO 80S BY AM VITALS. NO OTHER ACUTE CHANGES IN PT CONDITION NOTED. WILL CONTINUE TO MONITOR AND TREAT PER EMAR UNTIL HAND OFF TO DAY SHIFT RN.
--- NOTE | 2019-02-14 17:28 | NUR ---
SHIFT SUMMARY PT AXO TO SELF AND SOME TIMES HE FOLLOWS DIRECTIONS, PLEASANT AND COOPERATIVE WITH CARE. PT AMBULATING UNIT THOUGHOUT THE DAY WITH STEADY GAIT. PT CONFUSED AND INCOMPREHENSIBLE AT TIMES. PT ENCOURAGED TO ELEVATE RUE, THOUGH PT DOES NOT SIT STILL LONG ENOUGH TO ALLOW. VSS. PT APPEARS COMFORTABLE THOUGH COMPLAINS OF PAIN. PT DOES NOT ASK FOR PAIN MEDICATION.
--- NOTE | 2019-02-14 21:34 | NUR ---
PT co not liking ultram for pain. CO pain rt UE. elevated rt ue on 2 pillows and rewrappped rt UE soft splint. DR Soila VILLAFANA updated and tylenol 650 mg po Q 6 hours PRN and oxycodone 5 mg po Q 6 hours prn obtained. PT is mostly noncompliant with elevating rt UE as he wanders. Medicate for pain and assess effect. Encourage rt ue above heart level. Remote camera monitoring active, called biofuels technology manager JAson and verified.
--- NOTE | 2019-02-15 07:33 | NUR ---
PT medicated with tylenol and 5 mg oxycodone for rt ue pain. moving rt ue well. does attempt to remove rt ue hannah wrap repeatedly. Speech garbled but able to communicate. PT lives above [facility] x 4 years per his report. Poor to no safety awareness. Looking under bed, dressing undressing, on remote camera monitoring with several calls for unsafe behaviors. DR Alaniz recommends guardianship due to dementia. forgetful,. No agression. Cooperative with medications.
--- NOTE | 2019-02-15 07:34 | NUR ---
VERIFIED VIDEO MONITORING CALLED SCU MONITOR LUCRETIA TO VERIFY MONITORING
--- NOTE | 2019-02-15 13:49 | NUR ---
BOWEL CARE BEGUN I HAVE GIVEN THE PT MIRALAX TO BEGIN HIS BOWEL CARE. HIS LAST BM WAS 02/13 ACCORDING TO THE CHARTS
--- NOTE | 2019-02-15 16:21 | NUR ---
SHIFT SUMMARY [place], BUT MAY REQUIRE PLACEMENT UPON DISCHARGE. POSSIBLY [place]. WE ARE AWAITING GUARDIANSHIP. ORDER IS FOR Q 4 NEURO ASSESSMENTS. A RUBBER GOODS REPAIRER FROM [facility] VISITED TODAY. SO FAR, PT HAS NOT REQUESTED PAIN CONTROL. PT HAS BEEN VOIDING INDEPENDENTLY. CONFUSED. PT HAS AN IMPROVED RANGE OF MOTION IN RT ARM TODAY, PULSE IS GOOD, SKIN TEMP IS NORMAL. I DID RE-WRAP HIS ARM WHEN HE UNWRAPPED IT. PT HAS LOST HIS PRESCRIPTION GLASSES SOMEWHERE, UNCERTAIN OF WHEN THIS OCCURRED.
--- NOTE | 2019-02-15 20:21 | NUR ---
remote camera monitoring verified with automotive tire technician. Pt up ambulating in halls occasionally tried to leave secured unit. Redirects easily. Alert forgetful. Neuro checks Q 4 hours continue unchanged. Had one episode last night during sleep where he got up and urinated around room and was incontinent. Redirected back to bed.
--- NOTE | 2019-02-16 02:03 | NUR ---
DR Yanez updated on lack of bowel movement. additional bowel care orders obtained.
--- NOTE | 2019-02-16 07:01 | NUR ---
PT CONTINUES ALERT FORGETFUL AND WANDERS ATTEMPTS TO LEAVE SEVERAL times, redirects easily. medicated for pain x 2 with tylenol and oxycodone 5 mg with helpful effect. cooperative with medications. poor compliance with elevating rt ue.
--- NOTE | 2019-02-16 07:11 | NUR ---
VERIFIED VIDEO MONITORING VERIFIED VIDEO MONITORING IS ACTIVE WITH MONITOR JOMAR
--- NOTE | 2019-02-16 17:18 | NUR ---
SHIFT SUMMARY PT AMBULATES FREELY IN SCU BEN[place]. HE IS INDEPENDENT IN ROOM. AWAITING GUARDIANSHIP WHICH HIS DAUGHTERS ARE REPORTED TO BE ARRANGING. THEN HOPEFUL FOR PLACEMENT TO POSSIBLY [place]. PT IS CONFUSED. VALIUM GIVEN 3 X'S/DAY. PT COOPERATES WITH CARE AND FOLLOWS DIRECTIONS.
--- NOTE | 2019-02-16 17:29 | NUR ---
VIDEO MONITORING ENDED CHARGE INFORMED ME SHE IS ENDING VIDEO MONITORING FOR THIS PT. HE IS INDEPENDENT IN THE BEN[place] AND ROOM. PLEASANTLY CONFUSED. FOLLOWING DIRECTIONS.
--- NOTE | 2019-02-17 06:51 | NUR ---
SHIFT SUMMARY PT IS A 58 Y/O MALE, ADMITTED WITH ENCEPHALOPATHY. HE IS PLEASANTLY CONFUSED, A&O X SELF ONLY, AND WANDERS INDEPENDENTLY. HE REPORTED PAIN IN HIS R ARM, WHICH WAS WELL CONTROLLED WITH PRN OXYCODONE. NO COMPLAINTS OF NAUSEA OR SOB. VITALS WERE STABLE. PT SLEPT WELL THROUGH THE NIGHT. NO OTHER ACUTE CHANGES IN PT CONDITION NOTED DURING THE NIGHT. WILL CONTINUE TO MONITOR AND TREAT PER EMAR UNTIL HAND OFF TO DAY SHIFT RN.
--- NOTE | 2019-02-17 17:41 | NUR ---
SUMMARY PT HAS BEEN UP SINCE ONSET OF SHIFT DRESSED IN STREET CLOTHES, AMBULATING OR SITTING IN BEN[place]. INTERACTING WITH STAFF, CALM, PLEASANT AFFECT. ORIENTED TO PERSON/PLACE/FOLLOWING DIRECTION. HE @ X'S WANDERS INTO PT ROOMS HOWEVER REDIRECABLE. HX SCHIZOPHENIA, NOT HALLUCINATING OR RESPONDING TO VOICES TODAY. DX RUE COMPARTMENT SYNDROME, MINIMAL SWELLING @ THIS TIME HOWEVER PT STATE NUMBNESS & "BURNING" PAIN, HAVE GIVEN OXYCODONE & TYLENOL FOR RELIEF/CONTROL. PT TOOK SPLINT OFF THIS AM, THIS AFTERNOON PUT BACK ON. VSS. CONTINUE TO AWAIT GUARDIANSHIP & PLACEMENT.
[2019-02-18 05:10] LABS: BASOPHILS ABSOLUTE AUTO 0.04 K/mm3 (0.00-0.23); BASOPHILS PERCENT AUTO 1 % (0-2); EOSINOPHILS ABSOLUTE AUTO 0.49 K/mm3 (0.00-0.68); EOSINOPHILS PERCENT AUTO 7 % (0-6); Hematocrit 38.3 % (37.0-53.0); Hemoglobin 12.8 g/dL (13.5-17.5); IMMATURE GRAN PERCENT AUTO 2 % (0-1); LYMPHOCYTES ABSOLUTE AUTO 2.05 K/mm3 (0.84-5.20); LYMPHOCYTES PERCENT AUTO 30 % (21-46); MONOCYTES PERCENT AUTO 12 % (4-13); Mean Corpuscular HGB 31.9 pg (26.0-34.0); Mean Corpuscular HGB Conc 33.4 g/dL (31.5-36.5); Mean Corpuscular Volume 96 fL (80-100); Mean Platelet Volume 9.7 fL (9.1-12.4); NEUTROPHILS PERCENT AUTO 49 % (41-73); Platelet Count 255 K/mm3 (150-400); RDW Coefficient Variation 13.2 % (11.7-14.2); RDW Standard Deviation 46.1 fL (35.1-46.3); Red Blood Cell Count 4.01 M/mm3 (4.30-5.90); White Blood Cell Count 6.78 K/mm3 (4.00-11.30)
[2019-02-18 05:25] LABS: Alanine Aminotransfer (ALT/SGP 114 U/L (12-78); Albumin, Blood 3.3 g/dL (3.4-5.0); Albumin/Globulin Ratio 1.4 (0.8-1.8); Alk Phos 63 U/L (50-136); Anion Gap 4 mmol/L (6-16); Aspartate Aminotrans (AST/SGOT 40 U/L (12-37); Bilirubin, Total 0.3 mg/dL (0.1-1.0); Blood Urea Nitrogen 16 mg/dL (8-24); Bun/Creatinine Ratio 16.4 (12.0-20.0); CO2, Blood 30 mmol/L (21-32); Calcium, Blood 8.9 mg/dL (8.5-10.1); Chloride, Blood 105 mmol/L (98-108); Creatinine, Blood 0.98 mg/dL (0.60-1.20); Globulin, Blood 2.4 g/dL (2.2-4.0); Glomerular Filtration Rate >60 (60-); Glucose, Blood 84 mg/dL (70-99); Potassium, Blood 3.8 mmol/L (3.5-5.5); Sodium, Blood 139 mmol/L (136-145); Total Protein, Blood 5.7 g/dL (6.4-8.2)
--- NOTE | 2019-02-18 06:44 | NUR ---
SHIFT SUMMARY NO ACUTE CHANGES TO REPORT THIS SHIFT. PT ASSESSMENT REMAINS AT BASELINE. SPLINT TO RIGHT ARM INTACT. PT DENIES PAIN THERE, BUT STATES TINGLING. CAP REFILL LESS THAN 3 SECONDS. RIGHT HAND IS WARM AND DRY. PT A/O BUT VERY FORGETFUL. PLESANT WITH STAFF. PT STEADY ON FEET AND ROAMS THE HALLWAY OCCASIOANLY. VITALS STABLE. WILL CONTINUE TO MONITOR AND REPORT TO ONCOMING RN.
--- NOTE | 2019-02-18 17:38 | NUR ---
SUMMARY PT HAS BEEN UP SINCE ONSET OF SHIFT, AMBULATING IN BEN[place], WANDERING, @ X'S WILL SIT IN CHAIR IN BEN[place]. HE IS ORIENTED TO BASIC QUESTIONS, MAKES NEEDS KNOWN, POOR RECALL, @ X'S BECOMES DISORIENTED TO TIME. PLEASANT AFFECT. NOT HAVING VOICES OR HALLUCINATIONS @ THIS TIME, HX SCHIZPHRENIA. S/P R ARM INJURY, DX COMPARTMENT SYNDROME, HE STATE CONTINUING BURNING PAIN & NUMBNESS/TINGLING HOWEVER STATE FEELING IMPROVING TODAY. RADIAL PULSES =, CAP REFILL <3SECS, R HAND CONTINUES MILDLY SWOLLEN, COOL, HE IS ABLE TO WIGGLE ALL FINGERS. HE HAS USED R ARM SPLINT T/O DAY. VSS.
--- NOTE | 2019-02-19 05:49 | NUR ---
SHIFT SUMMARY PT HAS RESTED MOST OF THE NIGHT. HE WANDERS HALLWAY OCCASIONALLY. HAD A SHOWER THIS SHIFT. MEDICATED X1 FOR PAIN IN HIS RIGHT ARM. SWELLING IN HIS RIGHT ARM HAS DECREASED EVEN FURTHER FROM MY ASSESSMENT ON TUESDAY. R HAND IS WARM AND DRY. CAP REFILL REMAINS WNL, SPLINT IN PLACE. PT REPORTS TINGLING, BUT DENIES NUMBNESS, BUT THAT IS UNCHANGED FROM PRIOR ASSESSMENTS. NO ACUTE CHANGES OVERNIGHT. PT REMAINS PLESANT AND COOPERATIVE. WILL CONTINUE TO MONITOR AND REPORT TO ONCOMING RN.
[2019-02-19 11:22] LABS: BASOPHILS ABSOLUTE AUTO 0.05 K/mm3 (0.00-0.23); BASOPHILS PERCENT AUTO 1 % (0-2); EOSINOPHILS ABSOLUTE AUTO 0.47 K/mm3 (0.00-0.68); EOSINOPHILS PERCENT AUTO 6 % (0-6); Hematocrit 40.4 % (37.0-53.0); Hemoglobin 13.5 g/dL (13.5-17.5); IMMATURE GRAN ABSOLUTE AUTO 0.09 K/mm3 (0.00-0.10); IMMATURE GRAN PERCENT AUTO 1 % (0-1); LYMPHOCYTES ABSOLUTE AUTO 1.42 K/mm3 (0.84-5.20); LYMPHOCYTES PERCENT AUTO 17 % (21-46); MONOCYTES ABSOLUTE AUTO 0.88 K/mm3 (0.16-1.47); MONOCYTES PERCENT AUTO 10 % (4-13); Mean Corpuscular HGB 31.8 pg (26.0-34.0); Mean Corpuscular HGB Conc 33.4 g/dL (31.5-36.5); Mean Corpuscular Volume 95 fL (80-100); Mean Platelet Volume 9.7 fL (9.1-12.4); NEUTROPHILS PERCENT AUTO 66 % (41-73); Platelet Count 295 K/mm3 (150-400); RDW Coefficient Variation 13.2 % (11.7-14.2); RDW Standard Deviation 46.2 fL (35.1-46.3); Red Blood Cell Count 4.25 M/mm3 (4.30-5.90); White Blood Cell Count 8.61 K/mm3 (4.00-11.30)
[2019-02-19 12:50] LABS: Alanine Aminotransfer (ALT/SGP 110 U/L (12-78); Albumin, Blood 3.6 g/dL (3.4-5.0); Albumin/Globulin Ratio 1.3 (0.8-1.8); Alk Phos 73 U/L (50-136); Anion Gap 4 mmol/L (6-16); Aspartate Aminotrans (AST/SGOT 41 U/L (12-37); Bilirubin, Total 0.5 mg/dL (0.1-1.0); Blood Urea Nitrogen 16 mg/dL (8-24); Bun/Creatinine Ratio 18.6 (12.0-20.0); CO2, Blood 31 mmol/L (21-32); Chloride, Blood 103 mmol/L (98-108); Creatinine, Blood 0.86 mg/dL (0.60-1.20); Globulin, Blood 2.7 g/dL (2.2-4.0); Glomerular Filtration Rate >60 (60-); Glucose, Blood 69 mg/dL (70-99); Sodium, Blood 138 mmol/L (136-145); Total Protein, Blood 6.3 g/dL (6.4-8.2)
--- NOTE | 2019-02-19 18:01 | NUR ---
PATIENT IS ALERT AND ORIENTED TO SELF, FAMILY AND SITUATION. PATIENT IS INDEPENDENT IN HIS ROOM AND THE HALLWAY. PATIENT IS EASILY REDIRECTABLE AND SOOPERATIVE WITH CARE. NO COMPLAINTS OF PAIN. SPLINT IS IN PLACE. WILL CONTINUE TO MONITOR.
--- NOTE | 2019-02-20 05:00 | NUR ---
SUMMARY: PT IS MOSTLY ORIENTED, IS OCCASIONALLY CONFUSED BUT REDIRECTS EASILY. HE IS INDEPENDENT, AMBULATES IN HALLS FREQUENTLY AND NOTIFIES STAFF OF NEEDS. PT REQUESTED HIS VALIUM AND BENEDRYL AT BEDTIME AND ALSO RECIEVED NORCO PRN FOR TOLERABLE CONTROL OF BACK AND R.HAND PAIN. PT WEARS SPLINT TO BROKEN R.HAND W/SWELLING GETTING BETTER R/T IMPROVING COMPARTMENT SYNDROME. HE REPORTS TINGLING WHICH HE CLAIMS IS NEW "NORMAL" BUT CAP REFILL IS INTACT. NO ACUTE CHANGES, VSS/AFEBRILE. GUARDIANSHIP AND PLACEMENT PENDING. WCTM AND REPORT TO DAY RN.
[2019-02-20 11:39] LABS: BASOPHILS ABSOLUTE AUTO 0.04 K/mm3 (0.00-0.23); BASOPHILS PERCENT AUTO 0 % (0-2); EOSINOPHILS ABSOLUTE AUTO 0.33 K/mm3 (0.00-0.68); EOSINOPHILS PERCENT AUTO 3 % (0-6); Hematocrit 40.3 % (37.0-53.0); Hemoglobin 13.6 g/dL (13.5-17.5); IMMATURE GRAN PERCENT AUTO 1 % (0-1); LYMPHOCYTES ABSOLUTE AUTO 1.54 K/mm3 (0.84-5.20); LYMPHOCYTES PERCENT AUTO 15 % (21-46); MONOCYTES PERCENT AUTO 8 % (4-13); Mean Corpuscular HGB 32.7 pg (26.0-34.0); Mean Corpuscular HGB Conc 33.7 g/dL (31.5-36.5); Mean Corpuscular Volume 97 fL (80-100); Mean Platelet Volume 10.3 fL (9.1-12.4); NEUTROPHILS ABSOLUTE AUTO 7.56 K/mm3 (1.96-9.15); NEUTROPHILS PERCENT AUTO 73 % (41-73); Platelet Count 294 K/mm3 (150-400); RDW Coefficient Variation 13.2 % (11.7-14.2); RDW Standard Deviation 46.7 fL (35.1-46.3); Red Blood Cell Count 4.16 M/mm3 (4.30-5.90); White Blood Cell Count 10.37 K/mm3 (4.00-11.30)
[2019-02-20 12:07] LABS: Alanine Aminotransfer (ALT/SGP 92 U/L (12-78); Albumin, Blood 3.7 g/dL (3.4-5.0); Albumin/Globulin Ratio 1.4 (0.8-1.8); Alk Phos 75 U/L (50-136); Anion Gap 7 mmol/L (6-16); Aspartate Aminotrans (AST/SGOT 30 U/L (12-37); Bilirubin, Total 0.4 mg/dL (0.1-1.0); Blood Urea Nitrogen 17 mg/dL (8-24); Bun/Creatinine Ratio 20.5 (12.0-20.0); CO2, Blood 29 mmol/L (21-32); Calcium, Blood 8.9 mg/dL (8.5-10.1); Chloride, Blood 103 mmol/L (98-108); Creatinine, Blood 0.83 mg/dL (0.60-1.20); Globulin, Blood 2.7 g/dL (2.2-4.0); Glomerular Filtration Rate >60 (60-); Glucose, Blood 88 mg/dL (70-99); Potassium, Blood 4.1 mmol/L (3.5-5.5); Sodium, Blood 139 mmol/L (136-145); Total Protein, Blood 6.4 g/dL (6.4-8.2)
--- NOTE | 2019-02-20 18:26 | NUR ---
SHIFT [place] AMBULATING UP AND DOWN SCU HALLWAY ALL DAY. CALM AND COOPERATIVE. TAKING MEDS AND EATING WELL. DAUGHTER COMPLETED PAPERWORK ON GUARDIANSHIP (SHE IS A [employer] EMPLOYEE). NO OTHER ACUTE CHANGES.
--- NOTE | 2019-02-21 05:10 | NUR ---
SUPERVISOR INSPECTION AND TESTING SUMMARY NO ACUTE CHANGES THIS SHIFT. PT MOSTLY ORIENTED WITH SOME INTERMITTENT CONFUSION/FORGETFULNESS, BUT IS EASILY REORIENTED. PT VERY PLEASANT. PT STILL HAVING SOME DISCOMFORT AND WEAKNESS OF HIS R ARM. AWAITING PLACEMENT. VSS, WILL CONTINUE TO MONITOR.
[2019-02-21 10:34] LABS: BASOPHILS ABSOLUTE AUTO 0.03 K/mm3 (0.00-0.23); BASOPHILS PERCENT AUTO 0 % (0-2); EOSINOPHILS ABSOLUTE AUTO 0.33 K/mm3 (0.00-0.68); EOSINOPHILS PERCENT AUTO 4 % (0-6); Hematocrit 39.3 % (37.0-53.0); Hemoglobin 13.3 g/dL (13.5-17.5); IMMATURE GRAN ABSOLUTE AUTO 0.08 K/mm3 (0.00-0.10); IMMATURE GRAN PERCENT AUTO 1 % (0-1); LYMPHOCYTES ABSOLUTE AUTO 1.24 K/mm3 (0.84-5.20); LYMPHOCYTES PERCENT AUTO 16 % (21-46); MONOCYTES ABSOLUTE AUTO 0.77 K/mm3 (0.16-1.47); MONOCYTES PERCENT AUTO 10 % (4-13); Mean Corpuscular HGB 32.7 pg (26.0-34.0); Mean Corpuscular HGB Conc 33.8 g/dL (31.5-36.5); Mean Corpuscular Volume 97 fL (80-100); Mean Platelet Volume 9.8 fL (9.1-12.4); NEUTROPHILS ABSOLUTE AUTO 5.37 K/mm3 (1.96-9.15); NEUTROPHILS PERCENT AUTO 69 % (41-73); Platelet Count 283 K/mm3 (150-400); RDW Coefficient Variation 13.2 % (11.7-14.2); RDW Standard Deviation 46.8 fL (35.1-46.3); Red Blood Cell Count 4.07 M/mm3 (4.30-5.90); White Blood Cell Count 7.82 K/mm3 (4.00-11.30)
[2019-02-21 10:47] LABS: Alanine Aminotransfer (ALT/SGP 78 U/L (12-78); Albumin, Blood 3.5 g/dL (3.4-5.0); Albumin/Globulin Ratio 1.3 (0.8-1.8); Alk Phos 73 U/L (50-136); Anion Gap 8 mmol/L (6-16); Aspartate Aminotrans (AST/SGOT 28 U/L (12-37); Bilirubin, Total 0.3 mg/dL (0.1-1.0); Blood Urea Nitrogen 15 mg/dL (8-24); Bun/Creatinine Ratio 19.5 (12.0-20.0); CO2, Blood 25 mmol/L (21-32); Calcium, Blood 8.7 mg/dL (8.5-10.1); Chloride, Blood 107 mmol/L (98-108); Creatinine, Blood 0.77 mg/dL (0.60-1.20); Globulin, Blood 2.7 g/dL (2.2-4.0); Glomerular Filtration Rate >60 (60-); Glucose, Blood 118 mg/dL (70-99); Potassium, Blood 3.9 mmol/L (3.5-5.5); Sodium, Blood 140 mmol/L (136-145); Total Protein, Blood 6.2 g/dL (6.4-8.2)
--- NOTE | 2019-02-21 18:22 | NUR ---
NO ACUTE CHANGES TO PATIENT. HE REMAINS CONFUSED AND HAS TO BE REMINDED WHY HE IS HERE HE OFTEN FORGETS. HE IS PLEASANT AND HAS NOT POSED TO BE A THREAT TO STAFF OR THE OTHER PATIENTS. HE OFTEN IS OUT WALKING THE B[place]. HE IS EASILY REDIRECTABLE AND FRIENDLY WITH STAFF. NO ACUTE CHANGES THIS SHIFT. HIS ARM CONTINUES TO HURT HIM AND HE WILL OFTEN ASK FOR PAIN MEDICATION BUT DOES NOT REMEMBER WHY HIS ARM HURTS.
--- NOTE | 2019-02-22 05:04 | NUR ---
PHYSICAL CHEMISTRY TEACHER SUMMARY NO ACUTE CHANGES THIS SHIFT. PT INDEPENDENT IN ROOM AND WANDERS HALLS OF SCU AT TIMES. PT PLEASANT AND COOPERATIVE. AWAITING PLACEMENT AT THIS TIME. VSS, WILL CONTINUE TO MONITOR.
--- NOTE | 2019-02-22 17:39 | NUR ---
SHIFT SUMMARY NO ACUTE CHANGES. PATIENT MEDICATED X2 THIS SHIFT FOR PAIN IN HIS RIGHT ARM. DENIES NAUSEA AND SHORTNESS OF BREATH. PATIENT UP IN HALLWAY SITTING IN CHAIR AND CHATTING WITH STAFF. PATIENT PLEASANT AND COOPERATIVE WITH CARE. OT WORKED WITH PATIENT THIS MORNING.
[2019-02-23 05:05] LABS: Hematocrit 41.9 % (37.0-53.0); Hemoglobin 14.2 g/dL (13.5-17.5); Mean Corpuscular HGB Conc 33.9 g/dL (31.5-36.5); Mean Platelet Volume 9.7 fL (9.1-12.4); Platelet Count 317 K/mm3 (150-400); RDW Coefficient Variation 13.2 % (11.7-14.2); RDW Standard Deviation 45.8 fL (35.1-46.3); Red Blood Cell Count 4.44 M/mm3 (4.30-5.90)
[2019-02-23 05:06] LABS: Mean Corpuscular Volume 94 fL (80-100)
[2019-02-23 05:26] LABS: Alanine Aminotransfer (ALT/SGP 66 U/L (12-78); Albumin, Blood 3.9 g/dL (3.4-5.0); Albumin/Globulin Ratio 1.5 (0.8-1.8); Alk Phos 74 U/L (50-136); Anion Gap 6 mmol/L (6-16); Aspartate Aminotrans (AST/SGOT 30 U/L (12-37); Bilirubin, Total 0.3 mg/dL (0.1-1.0); Blood Urea Nitrogen 14 mg/dL (8-24); Bun/Creatinine Ratio 18.6 (12.0-20.0); CO2, Blood 27 mmol/L (21-32); Calcium, Blood 9.3 mg/dL (8.5-10.1); Chloride, Blood 107 mmol/L (98-108); Creatinine, Blood 0.75 mg/dL (0.60-1.20); Globulin, Blood 2.6 g/dL (2.2-4.0); Glomerular Filtration Rate >60 (60-); Glucose, Blood 86 mg/dL (70-99); Potassium, Blood 3.7 mmol/L (3.5-5.5); Sodium, Blood 140 mmol/L (136-145); Total Protein, Blood 6.5 g/dL (6.4-8.2)
--- NOTE | 2019-02-23 05:54 | NUR ---
SHIFT SUMMARY: 58 Y/O MALE RESTED COMFORTABLY ALL SHIFT WITH OCCASIONAL WANDERING THROUGHOUT UNIT HALLWAY, OCCASIONAL REDIRECTION REQUIRED BY NURSING STAFF, ALERT PERSON ONLY, ABLE TO FOLLOW ALL SIMPLE VERBAL COMMANDS, DENIES PAIN OR NAUSEA, BED LOW POSITION, CALL LIGHT AT SIDE.
--- NOTE | 2019-02-23 17:30 | NUR ---
SHIFT SUMMARY NO ACUTE CHANGES. PATIENT MEDICATED X1 FOR PAIN IN RIGHT ARM. PATIENT WEARING ARM BRACE MOST OF SHIFT. DECLINED TO PUT IN ON BEORE BREAKFAST BUT PUT IT ON FOR OT LATER IN THE MORNING. PATIENT INDEPENDENT IN ROOM AND WALKING AROUND IN HALLWAY TODAY. PATIENT PLEASANT AND COOPERATIVE WITH CARE.
--- NOTE | 2019-02-24 04:58 | NUR ---
SHIFT SUMMARY: 58 Y/O MALE RESTED COMFORTABLY IN BED ALL SHIFT WITH NO WANDERING OF HALLWAY AFTER 2200 HOURS NOTED, DENIES PAIN OR NAUSEA, THOUGHT PROCESS DISORGANIZED, BED LOW POSITION, CALL LIGHT AT SIDE, PT REMOVED RIGHT ARM RENALDO WRAP AT BEDTIME.
--- NOTE | 2019-02-24 17:28 | NUR ---
NO ACUTE CHANGES . CONTINUES TO BE PLEASANT AND COOPERATIVE WITH STAFF. HE IS OUT WALKING IN THE [place] MOST OF THE SHIFT.
--- NOTE | 2019-02-25 04:54 | NUR ---
02/25/19 0455 SLEEPING WELL WITH OCC "WALKING IN HALLS". TAKING GOOD ORAL INTAKE OF FLUIDS/FOOD. VITALS STABLE. UNEVENTFUL NIGHT.
--- NOTE | 2019-02-25 18:04 | NUR ---
PATIENT REMAINS THE SAME PREVIOUS SHIFT REPORT. HE IS FRIENDLY WITH STAFF, SPENDING THE DAY WALKING THE HALLS OR SITTING BY BACK WINDOW. HE IS VERY COMPLIANT WITH ALL CARES . PATIENT IS INDEPENDENT IN ALL HIS ADL'S ONLY REQUIRING ASSISTANCE WITH MED DELIVERY. NO ACUTE CHANGES, WELL NO CHANGES PERIOD THIS SHIFT.
--- NOTE | 2019-02-26 07:29 | NUR ---
02/26/19 0640 AWAKE AND STATES HE SLEPT GREAT. UP AND AROUND IN ROOM INDEPENDENTLY. UNEVENTFUL NIGHT.
--- NOTE | 2019-02-26 18:08 | NUR ---
PT IS A/OX2, PLEASANT AND COOPERATIVE THE PT HAS DELUSIONS AT TIMES, THE PT WAS UP IN THE [place] FOR MOST OF THE DAY, PACING AND SITTING AT THE WINDOW, THE PT APPEARED TO BE BREATHING EASILY ON RA, THE PT WAS MEDICATED FOR PAIN X2 TODAY IN THE RIGHT ARM, THE RIGHT ARM REMAINED IN A SPLINT T/O THE DAY, THE PT ATTEMPTED A COUPLE OF TIMES TO LEAVE THE UNIT, HOWEVER HE WAS EASILY REDIDRECTED, PT IS AWAITING PLACEMENT AT THIS TIME BEFORE DC
--- NOTE | 2019-02-26 23:18 | NUR ---
02/26/19 2315 PT WANDERING INTO OTHER PT ROOM. CONFUSED AND THOUGHT IT WAS HIS ROOM. RE-ORIENTED TO SURROUNDINGS.
--- NOTE | 2019-02-27 06:08 | NUR ---
02/27/19 0530 AWAKENED FOR VITALS. NO COMPLAINTS THIS AM. SLEPT WELL. UNEVENTFUL NIGHT. VITALS STABLE.
--- NOTE | 2019-02-27 16:25 | NUR ---
PT IS A/OX 2, SELF AND TIME, THE PT IS PLEASANT AND COOPERATIVE, THE PT WAS UP FOR MOST OF THE DAY IN BEN[place] AMBULATING AND SITTING IN THE CHAIR, THE PT APPEARED TO BE BREATHING EASILY ON RA, THE PTS ARM SPLINT WAS REAPPLIED THIS AM AFTER THE PT HAD TAKEN IT OFF, THE SKIN APPEARD TO BE WITHIN NORMAL LIMITD, THE PT WAS MEDICATED FOR PAIN X2 SO FAR TODAY, CALL LIGHT IN REACH, WILL CONTINUE TO MONITOR FOR CHANGES
--- NOTE | 2019-02-28 07:07 | NUR ---
SHIFT SUMMARY PT IS A 58 Y/O MALE, ADMITTED FOR ENCEPHALOPATHY. HE IS A&O X SELF ONLY, AND TENDS TO WANDER IN THE HALLWAY WHILE AWAKE. PT WAS MEDICATED ONCE WITH PRN ULTRAM FOR PAIN IN HIS R ARM. HE DENIED ANY NAUSEA OR SOB. VITALS WERE STABLE. PT SLEPT WELL DURING THE NIGHT. NO OTHER ACUTE CHANGES IN PT CONDITION NOTED. WILL CONTINUE TO MONITOR AND TREAT PER EMAR UNTIL HAND OFF TO DAY SHIFT.
--- NOTE | 2019-02-28 18:21 | NUR ---
PT IS A/OX2, SELF AND TIME, THE PT IS UP PACING IN THE [place] OR SITTING IN THE [place] FOR MOST OF THE DAY, THE PT WAS MEDICATED FOR LEFT ARM PAIN X3 TODAY, THE PT THIS AM REMOVED THE SPLINT ON HIS LEFT ARM AND THEN REWRAPPED THE SPLINT HIMSLF,THE PT APPEARS TO BE BREATHING EASILY ON RA AT THIS TIME
--- NOTE | 2019-03-01 07:51 | NUR ---
NOC SHIFT SUMMARY PT IS PLEASANT AND COOPERATIVE WITH CARE. LIKES TO PACE THE HALLWAY. ADMITTED FOR ENCEPHALOPATHY AND POSSIBLE COMPARTMENT SYNDROME IN R ARM FROM INJURY. TREATED FOR PAIN PER EMAR TO GOOD EFFECT AND PT SLEPT MOST OF NIGHT. NO ACUTE CHANGES NOTED. REPORT TO ON COMING RN.
--- NOTE | 2019-03-01 19:07 | NUR ---
SHIFT SUMMARY: NO ACUTE CAHNGES TO REPORT THIS SHIFT. MEDICATED FOR R ARM PAIN PER EMAR. PT HX SCHIZOPHRENIA; CONFUSION; CALM AND COOEPRATIVE WITH CARE. PT & OT FOLLOWING. AWAITING PLACEMENT. REPORT GIVEN TO ONCOMING RN.
--- NOTE | 2019-03-02 07:41 | NUR ---
NOC SHIFT SUMMARY PT IS PLEASANT AND COOPERATIVE WITH CARE. HE LIKES TO PACE THE HALWAY AT TIMES. HE WAS TREATED FOR PAIN ONCE THIS NIGHT PER EMAR AND FELL TO SLEEP SHORTLY AFTER. HAS SLEPT MUCH OF NIGHT. HIS R WRIST CONTINUES TO BE WEAK. VSS. NO ACUTE CHANGES. REPORT TO ONCOMING RN.
--- NOTE | 2019-03-02 19:14 | NUR ---
SHIFT SUMMARY: NO ACUTE CHANGES TO REPORT THIS SHIFT. PT A&O; OCCASIONAL CONFUSION; CALM AND COOPERATIVE WITH CARE. MEDICATED FOR R FOREARM PAIN PER EMAR. PT FOLLOWING; PATIENT INDEPENDENT IN ROOM. AWAITING PLACEMENT. REPORT GIVEN TO ONCOMING RN.
--- NOTE | 2019-03-03 02:46 | NUR ---
FOUND CIGARETTES IN PT ROOM. CIGARETTES LOCKED UP IN OUTSIDE ROTARY DRILL OPERATOR HELPER BAG WITH PATIENT LABEL.
--- NOTE | 2019-03-03 06:25 | NUR ---
SHIFT SUMMARY PT SLIGHTLY IRRITABLE WITH THIS RN FOR LOCKING UP CIGARETTES IN DRAWER. SECURITY CALLED DOWN TO CALM DOWN PT AND SAFELY RETURN HIM TO ROOM. PT HAS BEEN IN RM SINCE. RUE IS WEAK, WRIST DROOP NOTED. STRENGTH BOX TOE MAKER WEAK TO RUE. PT C/O PAIN TO RUE, TREATED c PRN OXYCODONE. PT INDEPENDENT IN RM, AMBULATING IN HALLS. PT AWAITING GUARDIANSHIP AND PLACEMENT. WILL CONT TO MONITOR AND PROVIDE CARE UNTIL PRESUMED BY ONCOMING RN.
--- NOTE | 2019-03-03 12:06 | NUR ---
PT PLEASANT COOP FOLLOWS COMMANDS WELL. 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 DENIES PAIN AT THIS TIME. RT ARM CONTRACTED SOME WITH WEAKNESS. H/R REG, NO MURMER NOTED. NO TELE. LUNGS CLEAR, RESP EASY, UNLABORED. ON R.A. BT X4 LAST BM 2 DAYS. VOIDS PER BATHROOM. BED IN LOW POSITION, CALL LITE IN REACH, CALLS APPROP. PT INDEPENDANT IN HALLWAYS , WALKING MOST OF TIME.. PRESENTS WITH TARDIVE DYSKONESIA FACIAL MOVEMENTS. PT STATES REDNESS/RASH ABD. RIGHT ABOVE BELT BUCKLE. DR OBSERVED. EXPECTING ALERGY TO METAL IN BELT BUCKLE. PT AGREED TO REMOVE SOL AND BELT AND WEAR OUR PAJAMA BOTTOMS/ TO ORDER MEDS. NO OTHER CONCERNS AT THIS TIME.
--- NOTE | 2019-03-03 17:40 | NUR ---
PT PLEASANT TODAY. PACING HALLWAY REGULARLY. DENIES PAIN. GOT HIM DECK OF CARDS TO PLAY [employer]ia. SEEMS TO KEEP OCCUPIED SOME. NO OTHER CONCERNS AT THIS TIME. PENDING PLACEMENT. RASH AT BELT LINE PRESENTS LIKELY FROM BELT AND METAL REACTION. CONVINCED PT TO REMOVE BELT/PANTS AND WEAR OUR PJ'S. ORDERED MED TO PUT ON BID. NO OTHER CONCERNS AT THIS TIME. BED IN LOW POSITION, CALL LITE IN REACH, CALLS APPROP
--- NOTE | 2019-03-04 05:50 | NUR ---
SHIFT SUMMARY NO ACUTE CHANGES TONIGHT. PT TREATED WITH TRAMADOL TWICE FOR RUE PAIN. PT RATES PAIN 10/10, BROUGHT DOWN TO 6/10 WITH PAIN MEDS. OINTMENT APPLIED TO LOWER ABD RASH PER EMAR ORDERS. PT APPLIED HIMSELF WITH RN SUPERVISION. PT AWAITING GUARDIANSHIP AND PLACEMENT. NO OTHER CHANGES TO REPORT, WILL CONT TO MONITOR AND PROVIDE CARE UNTIL PRESUMED BY ONCOMING RN.
--- NOTE | 2019-03-04 09:00 | NUR ---
pt pleasaant coop alert to most things. however is flights of ideas. concrete. states believes waiting for car to be fixed so can go home. walking halls most of time. follows commands. denies pain at this time. h/r reg, no murmer noted. no tele. lungs clear, resp easy, unlabored. on r.a. bt x4 last bm yest. per pt. voids independant in room. pending placement and guradianship. bed in low position, call lite in reach.
--- NOTE | 2019-03-04 14:55 | NUR ---
PT PACING T/O DAY. ABLE TO TALK TO BROTHER ON PHONE FOR A FEW MIN. TODAY ALSO. NO OTHER CONCERNS AT THIS TIME. BED IN LOW POSITION, CALL LITE IN REACH, CALLS APPROP.
--- NOTE | 2019-03-04 23:19 | NUR ---
PT CAME OUT OF ROOM TO [address] AND URINATES ON THE WALL AND FLOOR IN THE HALLWAY. PT REDIRECTED BACK TO AND SHOWN HIS OWN BR AND TOILET. HOUSEKEEPING CALLED TO MOP UP URINE.
--- NOTE | 2019-03-05 06:18 | NUR ---
SHIFT SUMMARY NO ACUTE CHANGES TONIGHT. PT AMBULATES HALLS, TALKING WITH SELF AND STAFF UNTIL ABOUT 2300 AND THEN GOES TO BED. PT IS PLEASANTLY CONFUSED AND COOPERATIVE CARE. PT DID HAVE AN EPISODE EARLY THIS AM OF EXITING RM TO HALLWAY AND URINATING ON HALLWAY WALL. HOWEVER PT WAS VISUALLY HALLUCINATING AND BELIEVED THERE WAS A TOILET THERE. SHOWED PT TOILET IN HIS OWN RM, AND HAS NOT BEEN AN ISSUE SINCE. OINTMENT APPLIED TO LOWER ABD PER ORDERS. PT CONT TO AWAIT PLACEMENT/SAFE DC PLAN. WILL CONT TO MONITOR AND PROVIDE CARE UNTIL PRESUMED BY ONCOMING RN.
--- NOTE | 2019-03-05 17:22 | NUR ---
SHIFT SUMMARY NO CHANGES IN ASSESSMENT AT THIS TIME. VSS. PT MEDICATED FOR PAIN ONCE THIS SHIFT. WILL CONTINUE TO MONITOR UNTIL TURNOVER IS COMPLETE.
--- NOTE | 2019-03-06 03:32 | NUR ---
PT alert cooperative. Mild confusion some wandering said he was looking for bathroom. slow to redirect to own bathroom. He is independent in room, steady gait. Cooperative with medications, and able to communicate. Medicated for rt arm pain with ultram 50 mg with helpful effect. PT says he is constipated, bowel care scheduled and prn given. [employer] music channel.
--- NOTE | 2019-03-06 17:49 | NUR ---
SHIFT SUMMARY NO CHANGES IN ASSESSMENT AT THIS TIME. VSS. PT IND IN ROOM. AMBULATING HALLS THROUGHOUT SHIFT. WILL CONTINUE TO MONITOR UNTIL TURNOVER IS COMPLETE.
--- NOTE | 2019-03-06 17:49 | NUR ---
[facility] intial note; Mr. Dominguez was fully dressed and standing in in the middle of his immaculate room. He was welcoming of visit and very pleasant. He tells me he is pleased at the way he is keeping his room. He appears rather simple, but very sweet. He pulled a chair up for me so we cuold talk. He told me that he has been closest to his brother in [facility] [place]. "We used to talk every day." His brother had an accident at work recently and became paralyzied and can "no longer text or call me." Mr. Dominguez states this loss and the loss of his mom 2 years ago have been heart-breaking. He admits to his mental health problems and says that when he has regular access to his medication he feels "sorta normal." He admits that he is estranged from his adult children. Mr. Dominguez was talkative, gracious, and pleasant. He appeared to enjoy conversation and companionship. He is not restoration. Interestingly, he said he was "surprised" I had come to see him "because I am not supposed to be around women." He did not elaborate. I will continue to see Mr. Dominguez as schedule permits.
--- NOTE | 2019-03-07 04:41 | NUR ---
PT continues to need guardianship and has letter on chart stating he is not capable of making own decisions. PT is generally cooperative but he does wake up during night and wander and try to go to the room across the german despite redirection of staff, slightly agitated when stopped and eventually tries again. inappropriate use of bathroom despite directing PT to own bathroom. able to dress and feed self, unable to manage own meds, cooperative with meds. does not have PT's own med that he had at beginning of hospital stay, no visitors for PT who would be able to fill rx for invega 9 mg. Med not available from pharmacy. Medicated for moderate rt ue pain with tylenol 650 mg with helpful effect.
--- NOTE | 2019-03-07 17:47 | NUR ---
SHIFT SUMMARY- PT A/O TO SELF ONLY. PT AMBULATES IN HALLS FREQUENTLY. PT COOPERATIVE WITH CARE. LS CLEAR, ON RA. HRR. NO COMPLAINTS T/O THE DAY. PT AWAITING GUARDIANSHIP AND PLACEMENT. NO OTHER ACUTE CHANGES THIS SHIFT.
--- NOTE | 2019-03-08 06:45 | NUR ---
Pt continues to need placement in safe environment and he continues mostly cooperative. Independent and has steady gait. no attempts to elope. Dr decreased his valium dose at HS to 5 mg from 10 mg due to PT appears to sleepwalk and attempt to enter room across german to use bathroom.He did try one but was easier to redirect back to his bathroom.
--- NOTE | 2019-03-08 17:11 | NUR ---
SHIFT SUMMARY- PT PLEASANT AND COOPERATIVE T/O THE DAY. PT MEDICATED X1 WITH TRAMADOL FOR RIGHT FINGERS TO ELBOW PAIN, BRACE PLACED TO RIGHT WRIST PER OT RECOMMENDATIONS. LS CLEAR, ON RA. HRR. PT WITH GOOD APPETITE. WALKS FREQUENTLY OUT IN THE HALLS. NO OTHER ACUTE CHANGES. AWAITING GUARDIANSHIP AND PLACEMENT.
--- NOTE | 2019-03-09 06:32 | NUR ---
SHIFT SUMMARY NO CHANGES OVERNIGHT. PT HAS DENIED PAIN. HE HAS BEEN IN HIS ROOM MOST OF THE NIGHT AND HAS ROAMED THE HALLS MINIMALLY. PT TOOK BRACE OFF OF LEFT HAND OVERNIGHT AND STATES THAT HE PREFERS TO HAVE IT OFF UNTIL DAYSHIFT. PT ASSESSMENT HAS REMAINED UNCHANGED. WILL CONTINUE TO MONITOR AND REPORT TO ONCOMING RN.
--- NOTE | 2019-03-09 17:19 | NUR ---
SHIFT SUMMARY MEDICATED PT FOR PAIN TWICE TODAY. PT STATED HE FELT PAIN FOLLOWING HIS OT SESSION. PT ALERT AND COOPERATIVE WITH CARE. STILL AWAITING GUARDIANSHIP/PLACEMENT. NO OTHER CHANGE THROUGHOUT SHIFT.
--- NOTE | 2019-03-10 03:23 | NUR ---
SHIFT SUMMARY PATIENT HAD NO ACUTE CHANGES OBSERVED THIS SHIFT. AXOX 2 WITH CONFUSION AND INDEPENDENT IN ROOM AND HALLWAY. TAKES MEDICATION WHOLE WITH WATER. VSS/AFEBRILE. DENIES PAIN, N/V, AND SOB. NO IV ACCESS. WAITING FOR GUARDIANSHIP AND PLACEMENT. PATIENT WALKED HALLS T/O FIRST HALF OF SHIFT. CALL LIGHT IN REACH. BED IN LOWEST POSITION. WILL CONTINUE TO MONITOR UNTIL DAY SHIFT NURSE ASSUMES CARE.
--- NOTE | 2019-03-10 17:03 | NUR ---
SHIFT SUMMARY: PT IS A/O TO SELF AND SITUATION WITH ONGOING CONFUSION. HE DENIES PAIN AND IS UP WALKING THE HALLS AND IN HIS ROOM. PT IS PLEASANT AND COOPERATIVE WITH CARE AND ASKS FOR HELP WHEN NEEDED.
--- NOTE | 2019-03-11 04:19 | NUR ---
SHIFT SUMMARY PATIENT HAD NO ACUTE CHANGES OBSERVED THIS SHIFT. AXOX 2 W/CONFUSION. WALKED HALLS FIRST PART OF SHIFT. VSS/AFEBRILE. DENIES PAIN, SOB, AND N/V. NO IV ACCESS. TAKES MEDS WHOLE WITH WATER. COOPERATIVE WITH CARE. CALL LIGHT IN REACH. BED IN LOWEST POSITION. WILL CONTINUE TO MONITOR UNTIL DAY SHIFT NURSE ASSUMES CARE.
--- NOTE | 2019-03-11 17:07 | NUR ---
SHIFT SUMMARY: PT REMAINS A/O TO SELF AND SITUATION AND ABLE TO MAKE NEEDS KNOWN. HE IS PLEASANT AND COOPERATIVE WITH CARE AND WALKS AROUND ROOM AND UNIT INDEPENDENTLY. PT STATES HE IS READY TO GO [place] WHEN HE DCS FROM [facility].
--- NOTE | 2019-03-12 03:52 | NUR ---
SHIFT SUMMARY PATIENT HAD NO ACUTE CHANGES OBSERVED THIS SHIFT. AXO X3 W/CONFUSION. INDEPENDENT STAYING IN ROOM MOST OF THE SHIFT WATCHING TV. VSS/AFEBRILE. DENIES PAIN, SOB, AND N/V. NO IV ACCESS. COOPERATIVE WITH CARE. CALL LIGHT IN REACH. BED IN LOWEST POSITION. WILL CONTINUE TO MONITOR UNTIL DAY SHIFT NURSE ASSUMES CARE.
--- NOTE | 2019-03-12 17:17 | NUR ---
SHIFT SUMMARY: PT HAS BEEN UP AMBULATING IN ROOM AND ON UNIT ALERT TO BASELINE WITH NO C/O PAIN. PT IS PLEASANT AND COOPERATIVE WITH CARE AND IS ABLE TO MAKE HIS NEEDS KNOWN.
--- NOTE | 2019-03-12 19:45 | NUR ---
ASSUMED CARE OF THE PATIENT, PATIENT UP WALKING THE HALLS, PLEASANT AND COOPERATIVE, ASSESSMENT COMPLETED SEE CHART. NO ACUTE FINDINGS, CALL LIGHT IN REACH. WILL CONTINUE TO MONITOR
[2019-03-13 05:20] LABS: BASOPHILS ABSOLUTE AUTO 0.02 K/mm3 (0.00-0.23); BASOPHILS PERCENT AUTO 0 % (0-2); EOSINOPHILS ABSOLUTE AUTO 0.49 K/mm3 (0.00-0.68); EOSINOPHILS PERCENT AUTO 7 % (0-6); Hematocrit 38.4 % (37.0-53.0); Hemoglobin 13.3 g/dL (13.5-17.5); IMMATURE GRAN ABSOLUTE AUTO 0.05 K/mm3 (0.00-0.10); IMMATURE GRAN PERCENT AUTO 1 % (0-1); LYMPHOCYTES ABSOLUTE AUTO 2.33 K/mm3 (0.84-5.20); LYMPHOCYTES PERCENT AUTO 34 % (21-46); MONOCYTES ABSOLUTE AUTO 0.68 K/mm3 (0.16-1.47); MONOCYTES PERCENT AUTO 10 % (4-13); Mean Corpuscular HGB 32.8 pg (26.0-34.0); Mean Corpuscular HGB Conc 34.6 g/dL (31.5-36.5); Mean Corpuscular Volume 95 fL (80-100); NEUTROPHILS PERCENT AUTO 48 % (41-73); Platelet Count 210 K/mm3 (150-400); RDW Coefficient Variation 12.6 % (11.7-14.2); RDW Standard Deviation 44.1 fL (35.1-46.3); Red Blood Cell Count 4.06 M/mm3 (4.30-5.90); White Blood Cell Count 6.87 K/mm3 (4.00-11.30)
[2019-03-13 05:35] LABS: Anion Gap 6 mmol/L (6-16); Blood Urea Nitrogen 19 mg/dL (8-24); Bun/Creatinine Ratio 26.8 (12.0-20.0); CO2, Blood 27 mmol/L (21-32); Calcium, Blood 8.5 mg/dL (8.5-10.1); Chloride, Blood 108 mmol/L (98-108); Creatinine, Blood 0.71 mg/dL (0.60-1.20); Glomerular Filtration Rate >60 (60-); Glucose, Blood 86 mg/dL (70-99); Potassium, Blood 3.7 mmol/L (3.5-5.5); Sodium, Blood 141 mmol/L (136-145)
--- NOTE | 2019-03-13 05:43 | NUR ---
SHIFT SUMMARY: MARKELL HAD A GOOD NIGHT, WALKED THE HALLS AT BEGINNING OF THE SHIFT. WAS PLEASANT AND COOPERATIVE. DENIED ANY PAIN OR DISCOMFORT. MEDS WERE GIVEN PER EMAR. HE LAID DOWN IN ROOM AFTER MEDS AND WENT TO SLEEP. HE HAD NO COMPLAINTS OR CONCERNS THROUGHOUT THE NIGHT. WILL REPORT TO DAY SHIFT RN,.
--- NOTE | 2019-03-13 17:56 | NUR ---
SHIFT SUMMARY: PT HAS BEEN A/O AT BASELINE THIS SHIFT WITH NO C/O PAIN OR DISCOMFORT. PT CONTINUES TO AMBULATE IN ROOM AND OUT IN [address] AND WAS OUT COLORING WITH THE CNAS AND OTHER PATIENTS THIS AFTERNOON.
--- NOTE | 2019-03-14 04:54 | NUR ---
SUMMARY: PT IS A/OX4, INDEPENDENT AND PLEASANT/COOPERATIVE W/CARE. HE'S DENIED PAIN/COMPLAINTS AND SLEPT MAJORITY OF SHIFT. PT AMBULATES IN HALLS SAT IN CHAIR VISITING W/STAFF. HE'S MEDICALLY STABLE AND AWAITING GUARDIANSHIP W/ PLACEMENT. NO ACUTE CHANGES, VSS/AFEBRILE. WCTM AND REPORT TO DAY RN.
--- NOTE | 2019-03-14 18:41 | NUR ---
SHIFT SUMMARY NO ACUTE CHANGES. PT IS STABLE AND AT HIS BASELINE. BRACE APPLIED TO R WRIST, PT INSTRUCTED TO KEEP BRACE, VERBALIZES UNDERSTANDING. TREATED FOR PAIN 1X WITH TRAMADOL. WILL CONT TO MONITOR AND PROVIDE CARE UNTIL PRESUMED BY ONCOMING RN.
--- NOTE | 2019-03-15 05:08 | NUR ---
SHIFT SUMMARY NO ISSUES NOTED THIS SHIFT. PT COOPERATIVE AND PLESANT. PT HAS BEEN IN HIS ROOM MOST OF SHIFT. PT CURRENTLY SLEEPING IN NO DISTRESS. CALL LIGHT IN REACH.
--- NOTE | 2019-03-15 17:52 | NUR ---
PT AOX3 AND PLEASANTLY CONFUSED. PT WANDERS IN AND OUT OF HIS ROOM. MANY TIMES PT THINKS HE IS LEAVING, BUT THEN WILL FORGET. PT IS COOPERATIVE OF ALL CARE. WILL CONTINUE TO MONITOR.
--- NOTE | 2019-03-16 02:21 | NUR ---
03/16/19 0220 PT CONTINUES TO SLEEP WELL IN CATERING ADMINISTRATIVE ASSISTANT BED BY WINDOW.
--- NOTE | 2019-03-16 07:09 | NUR ---
03/16/19 0630 AWAKENED FOR AM MEDS. NO COMPLAINTS AND STATES HE SLEPT WELL.
[2019-03-16] MEDS ORDERED: DOCU100 PO (12:09)
[2019-03-16] MEDS ORDERED: ACET325 PO (12:09)
[2019-03-16] MEDS ORDERED: FOLI400 PO (12:10)
[2019-03-16] MEDS ORDERED: THERA1 EACH PO (12:10)
[2019-03-16] MEDS ORDERED: SENN187 PO (12:11)
[2019-03-16] MEDS ORDERED: Thiamine HCl100 MG PO (12:12)
[2019-03-16] MEDS ORDERED: TAMS.4ER PO (12:12)
--- NOTE | 2019-03-16 13:14 | NUR ---
PT DISCHARGE HOME WITH HOME HEALTH AT 1310. DAUGHTER HERE TO TAKE PT HOME. ALL PAPERS AND EDUCATIONAL MATERIAL REVIEWED. MEDICATION FA[facility]ED TO [facility]. PT HAS BEEN PLEASANT WITH CARE AND HAS BEEN WEARING HIS R WRIST BRACE. ALL BELONGINGS TAKEN WITH PT. REFUSED WHEEL CHAIR ESCORT. WALKED OUT WITH DAUGHTER, NO DISTRESS NOTED.
== END 2019-03-16 13:18 | disposition home or self-care (01) | DRG 923 ==
LOC: ER 10:41 → MEDS 16:53 → ENPENDDIS 03-16 11:27 → MEDS 03-16 13:18
PROVIDERS: Emergency Medicine; Family Medicine; Internal Medicine; ADMIT Internal Medicine
DX: T79.A11A Traumatic compartment syndrome of right upper extremity, initial encounter (principal); J44.9 Chronic obstructive pulmonary disease, unspecified; I10 Essential (primary) hypertension; F20.9 Schizophrenia, unspecified; F17.210 Nicotine dependence, cigarettes, uncomplicated; Z79.82 Long term (current) use of aspirin; M21.331 Wrist drop, right wrist; N40.0 Benign prostatic hyperplasia without lower urinary tract symptoms; L23.0 Allergic contact dermatitis due to metals
CPT/HCPCS: 29515; 36415; 70450; 73090; 76705; 80048; 80053; 80069; 81001; 82550; 82553; 82607; 82746; 82803; 82947; 83735; 84443; 85025; 85027; 85610; 90471; 90714; 93005; 93010; 94640; 94760; 96360-59; 96361-59; 97110; 97166; 97168; 97535; 99285-25; A9270; A9270-GY; C9113; G0480; J1650; J7030; J7120; J7512; Q0163

== ENCOUNTER 2019-04-18 09:39 | Observation (INO) | payer OTHER ==
[~2019-04-18] VITALS: Ht 175.3 cm; Wt 66.6 kg
[~2019-04-18 09:39] MED LIST changes: +ACET325 PO; +ALBU2.5V5 INH; +ALBU3IS NEB; +ALBU90OI61 INH; +ATORVASTATIN CA10 MG PO; +Aspir 8181 MG PO; +BUDE6HFA INH; +BUPR100ER PO; +Benadryl25 MG PO; +Benztropine Mesy1 MG PO; +CLON1 PO; +DIAZ10 PO; +DOCU100 PO; +FERSU300; +FOLI400 PO; +IBU800 MG PO; +L-THEANINE25 GM PO; +LOVA40; +Lovastatin20 MG PO; +OMEGA-3 FISH O1 EAC3 PO; +OMEP20ER PO; +PALIPERIDONE ER9 MG PO; +Prednisone5 MG PO; +Prinivil10 MG PO; +SENN187 PO; +SPIRIVA RESPIMAT4 GM INH; +TAMS.4ER PO; +THERA1 EACH PO; +TRIDERM454 GM TOP; +Thiamine HCl100 MG PO
[2019-04-18] MEDS ORDERED: LOVA40 PO (10:40)
[2019-04-18] MEDS ORDERED: Vitamin B Comple1 EA PO (10:45)
[2019-04-18] MEDS ORDERED: Therems1 EACH PO ×2 (10:46→11:05)
[2019-04-18 11:51] LABS: BASOPHILS ABSOLUTE AUTO 0.05 K/mm3 (0.00-0.23); BASOPHILS PERCENT AUTO 1 % (0-2); EOSINOPHILS PERCENT AUTO 3 % (0-6); Hematocrit 42.7 % (37.0-53.0); Hemoglobin 14.4 g/dL (13.5-17.5); IMMATURE GRAN ABSOLUTE AUTO 0.06 K/mm3 (0.00-0.10); IMMATURE GRAN PERCENT AUTO 1 % (0-1); LYMPHOCYTES ABSOLUTE AUTO 1.28 K/mm3 (0.84-5.20); LYMPHOCYTES PERCENT AUTO 17 % (21-46); MONOCYTES ABSOLUTE AUTO 0.63 K/mm3 (0.16-1.47); MONOCYTES PERCENT AUTO 9 % (4-13); Mean Corpuscular HGB 32.2 pg (26.0-34.0); Mean Corpuscular HGB Conc 33.7 g/dL (31.5-36.5); Mean Corpuscular Volume 96 fL (80-100); Mean Platelet Volume 9.8 fL (9.1-12.4); NEUTROPHILS ABSOLUTE AUTO 5.12 K/mm3 (1.96-9.15); NEUTROPHILS PERCENT AUTO 70 % (41-73); Platelet Count 253 K/mm3 (150-400); RDW Coefficient Variation 12.8 % (11.7-14.2); Red Blood Cell Count 4.47 M/mm3 (4.30-5.90); White Blood Cell Count 7.34 K/mm3 (4.00-11.30)
[2019-04-18 11:56] LABS: Source, Urine Voided
[2019-04-18 12:08] LABS: Bilirubin, Urine Neg (Neg); Blood, Urine 2+ (Neg); Glucose Qualitative, Urine Neg (Neg); Ketones, Urine Neg (Neg); Leukocyte Esterase, Urine 3+ (Neg); Nitrite, Urine Pos (Neg); Protein, Urine 1+ (Neg); Urobilinogen, Urine NORM (Normal); pH, Urine 6.5 (5.0-8.0)
[2019-04-18 12:17] LABS: U Amphetamine Screen Not Detected; U Barbituate Screen Not Detected; U Benzodiazapine Screen DETECTED; U Buprenorphine Screen Not Detected; U Cannabinoids Screen Not Detected; U Cocaine Screen Not Detected; U Methadone Screen Not Detected; U Methamphetamine Screen Not Detected; U Opiates Screen Not Detected; U Oxycodone Screen Not Detected; U Phencyclidine Screen Not Detected; U Propoxyphene Screen Not Detected
[2019-04-18 12:18] LABS: Appearance, Urine Hazy (Clear); Color, Urine Yellow (P-Yellow)
[2019-04-18 12:20] LABS: White Blood Cells, Urine TNTC /hpf (0-5)
[2019-04-18 12:21] LABS: Bacteria Mod /hpf; Squamous Epithelial Cells Rare /hpf (Few)
[2019-04-18 12:22] LABS: Acetaminophen, Random <2.0 ug/mL (10.0-30.0); Alanine Aminotransfer (ALT/SGP 40 U/L (12-78); Albumin, Blood 3.7 g/dL (3.4-5.0); Albumin/Globulin Ratio 1.5 (0.8-1.8); Alk Phos 76 U/L (50-136); Anion Gap 4 mmol/L (6-16); Aspartate Aminotrans (AST/SGOT 30 U/L (12-37); Bilirubin, Total 0.3 mg/dL (0.1-1.0); Blood Urea Nitrogen 14 mg/dL (8-24); Bun/Creatinine Ratio 15.5 (12.0-20.0); CO2, Blood 25 mmol/L (21-32); Chloride, Blood 113 mmol/L (98-108); Creatinine, Blood 0.91 mg/dL (0.60-1.20); Ethanol (Alcohol), Blood, Med <3 mg/dL; Globulin, Blood 2.4 g/dL (2.2-4.0); Glomerular Filtration Rate >60 (60-); Glucose, Blood 78 mg/dL (70-99); Potassium, Blood 4.1 mmol/L (3.5-5.5); Salicylate <1.7 mg/dL (2.8-20.0); Sodium, Blood 142 mmol/L (136-145); Total Protein, Blood 6.1 g/dL (6.4-8.2)
[2019-04-18] MEDS ORDERED: Bactrim Ds Tab1 EACH PO (12:58)
[2019-04-19 05:10] LABS: Hemoglobin 13.4 g/dL (13.5-17.5); Mean Corpuscular HGB Conc 33.5 g/dL (31.5-36.5); Mean Corpuscular Volume 96 fL (80-100); Mean Platelet Volume 9.8 fL (9.1-12.4); Platelet Count 233 K/mm3 (150-400); RDW Coefficient Variation 12.8 % (11.7-14.2); RDW Standard Deviation 44.5 fL (35.1-46.3); Red Blood Cell Count 4.19 M/mm3 (4.30-5.90); White Blood Cell Count 7.56 K/mm3 (4.00-11.30)
--- NOTE | 2019-04-19 05:29 | NUR ---
REFINERY PROCESS ENGINEER SUMMARY PT WAS A NEW ADMIT FROM THE ED TONIGHT. PT ALERT AND ORIENTED X3. FOLLOWS DIRECTIONS BUT IMPULSIVE AND FORGETFUL. PT PULLED OUT IV BECAUSE HE WAS CONFUSED TO WHY IT WAS THERE. NEW IV PLACED. PT INDEPENDENT WITH STABLE GAIT. STARTED IV ABX AND FLUIDS. PT DENIES PAIN, SOB AND N/V. PT HAS BEEN RESTING COMFORTABLY. VSS, WILL CONTINUE TO MONITOR.
[2019-04-19 05:32] LABS: Alanine Aminotransfer (ALT/SGP 36 U/L (12-78); Albumin, Blood 3.5 g/dL (3.4-5.0); Albumin/Globulin Ratio 1.5 (0.8-1.8); Alk Phos 74 U/L (50-136); Anion Gap 6 mmol/L (6-16); Aspartate Aminotrans (AST/SGOT 28 U/L (12-37); Bilirubin, Total 0.4 mg/dL (0.1-1.0); Blood Urea Nitrogen 16 mg/dL (8-24); Bun/Creatinine Ratio 15.8 (12.0-20.0); CO2, Blood 27 mmol/L (21-32); Calcium, Blood 8.9 mg/dL (8.5-10.1); Chloride, Blood 111 mmol/L (98-108); Creatinine, Blood 1.01 mg/dL (0.60-1.20); Globulin, Blood 2.4 g/dL (2.2-4.0); Glomerular Filtration Rate >60 (60-); Glucose, Blood 79 mg/dL (70-99); Potassium, Blood 3.6 mmol/L (3.5-5.5); Sodium, Blood 144 mmol/L (136-145); Total Protein, Blood 5.9 g/dL (6.4-8.2)
--- NOTE | 2019-04-19 17:40 | NUR ---
SHIFT SUMMARY PATIENT ORIENTED X3 BUT EASILY FORGETFUL AND IMPULSIVE. FLUIDS DC'D, R FA IV C/D, WRAPPED WITH LOOSE COBAN. PT HAS A STABLE GAIT, PT UP AD ZACH IN ROOM/[address]. REDNESS/RASH NOTED ON LOWER BODY, DR MYRICK AWARE. PT HAD NOT VOIDED SINCE ADMISSION SO PATIENT WAS BLADDER SCANNED AND HE HAD OVER 1 L IN BLADDER, STRAIGHT CATH/SHORT TERM LEG BAG USING GRAVITY HELPED TO DRAIN BLADDER AROUND 1100. DR MYRICK AWARE. BLADDER SCAN AROUND 1640 SHOWED 266 ML. PT GIVEN ALL MEDS PRESCRIBED. PT DENIES SOB, NAUSEA, COUGH. NO SEXUAL/THREATENING COMMENTS NOTED. PT STATES HE HAS MILD PAIN TO R WRIST/HAND, NO ABNORMALITY NOTED IN THAT AREA.
--- NOTE | 2019-04-20 05:42 | NUR ---
DIRECTOR SALES SUPPORT SUMMARY PT A/O X1 TO SELF. PT IS INDEPENDENT IN THE ROOM AND WANDERS THE HALLS. PT IS FORGETFUL AND REQUIRES RE-DIRECTION OFTEN. PT CONTINUES TO RETAIN URINE. BLADDER SCAN WAS UNDER 500ML AND RECIVED ORDER FROM DR. SALAS TO STRAIGHT CATH. URINE DARK AND CONTAINED SOME A TRACE AMOUNT OF SEDIMENTS. PT SLEPT WELL THROUGHOUT THE NIGHT. VSS AND WILL CONTINTUE TO MONITOR.
--- NOTE | 2019-04-20 18:05 | NUR ---
SHIFT SUMMARY PATIENT ALERT AND ORIENTED TO SELF, PATIENT FOLLOWS DIRECTIONS AND IS EASILY REDIRECTABLE. HE TALKS FREQUENTLY BUT MOST OF HIS SENTENCES DO NOT MAKE SENSE. HE AMBULATES AROUND ROOM AND [place] FREQUENTLY. HE STILL HAS A RASH AND IT HAS WORSENED. THE REDNESS ON HIS LOWER LEGS HAS INCREASED AND THERE IS NEW REDNESS ON HIS THIGHS, BACK, AND BILAT ANTECUBITAL AREA, DR MYRICK NOTIFIED, CLARITIN ORDERED SCHEDULED. THE PATIENT ALSO CANNOT URINATE, HE WAS BLADDER SCANNED AND STRAIGHT CATHED AROUND 1630 FOR ABOUT 1150. A LEG BAG WAS PLACED ON THE CATHETER, ORDER OBTAINED. PATIENT INSTRUCTED TO NOT UNSTRAP OR PULL OUT CATHETER. GOOD OUTPUT AND PT TOLERATING WELL. THE PATIENT'S NIECE VISITED PT TODAY.
--- NOTE | 2019-04-20 22:47 | NUR ---
PATIENT WALKING HALLS AND ENTERS OTHER PATIENT ROOMS AT TIMES BUT IS REDIRECTABLE. TRIED TO PULL OUT LEG BAG FOR SHAHID.
--- NOTE | 2019-04-21 01:12 | NUR ---
PATIENT PULLED LEG BAG FROM SHAHID OUT X TWO. HOUSE CLEANING NOTIFIED. SHAHID REMAINS IN PLACE. NEW BAG ATTACHED.
--- NOTE | 2019-04-21 03:04 | NUR ---
SHIFT SUMMARY PATIENT HAD NO ACUTE CHANGES OBSERVED THIS SHIFT. AXO X 2 W/CONFUSION. INDEPENDENT IN ROOM AND HALLS. PATIENT TRIES TO WALK INTO OTHER PATIENT ROOMS AND IS EASILY REDIRECTABLE. PATIENT PULLED LEG BAG FROM SHAHID OUT X TWO. BAGS REPLACED AND MAINTENANCE CALLED FOR CLEAN UP. VSS/AFEBRILE. DENIES PAIN, SOB, AND N/V. SHAHID PATENT AND DRAINING. PIV REMAINS INTACT. IV ABX INFUSED. TAKES MEDICATION WHOLE WITH WATER. CALL LIGHT IN REACH. BED IN LOWEST POSITION. WILL CONTINUE TO MONITOR UNTIL DAY SHIFT NURSE ASSUMES CARE.
--- NOTE | 2019-04-21 10:00 | NUR ---
PT. AMBULATING IN [place], GAIT STEADY AND EVEN. TRIES TO GO IN OTHER PT'S ROOMS BUT EASILY REDIRECTED. HAVEN'T NOTED PT. TRYING TO PULL ON CATHETER.
--- NOTE | 2019-04-21 11:00 | NUR ---
pt high risk for readmission, will meet with family again and ask that they do advsnce directive. they have been provided with the information will reenforce need and supportive education on his dementia will be needed.
[2019-04-21] MEDS ORDERED: FINA5 PO (13:16)
[2019-04-21] MEDS ORDERED: NITR100CA PO (13:17)
[2019-04-21] MEDS ORDERED: Prinivil10 MG PO (13:17)
[2019-04-21] MEDS ORDERED: OLAN5 PO (13:21)
[2019-04-21] MEDS ORDERED: PALI3TAB PO (13:22)
--- NOTE | 2019-04-21 15:30 | NUR ---
PT. DISCHARGED HOME TO [facility]. DAUGHTERS BOYFRIEND PICKED UP PATIENT AND DISCHARGE ORDERES GIVEN TO HIM TO GIVE TO [facility]. MEDS FAXED TO [facility] IN [place].
== END 2019-04-21 15:31 | disposition home health service (06) ==
LOC: ER 09:39 → EOR 09:40 → MEDS 09:40 → EOR 09:40 → MEDS 09:40
PROVIDERS: Emergency Medicine; Internal Medicine; ADMIT Emergency Medicine
DX: G93.40 Encephalopathy, unspecified (principal); N39.0 Urinary tract infection, site not specified; N40.1 Benign prostatic hyperplasia with lower urinary tract symptoms; R33.9 Retention of urine, unspecified; T56.891A Toxic effect of other metals, accidental (unintentional), initial encounter; L24.81 Irritant contact dermatitis due to metals; G30.9 Alzheimer's disease, unspecified; F02.80 Dementia in other diseases classified elsewhere, unspecified severity, without behavioral disturbance, psychotic disturbance, mood disturbance, and anxiety; F25.9 Schizoaffective disorder, unspecified; R79.89 Other specified abnormal findings of blood chemistry; I10 Essential (primary) hypertension; F32.9 Major depressive disorder, single episode, unspecified; J44.9 Chronic obstructive pulmonary disease, unspecified; Z88.0 Allergy status to penicillin; Z79.899 Other long term (current) drug therapy; Z79.51 Long term (current) use of inhaled steroids; Z79.82 Long term (current) use of aspirin
CPT/HCPCS: 36415; 80053; 81001; 84443; 85025; 85027; 87077; 87086; 87186; 94640; 94760; 99285; A9270; A9270-GY; G0378; G0480; J0696; J1650; J3370; J7030; Q3014

== ENCOUNTER 2019-04-26 22:05 | Emergency (ER) | payer OTHER ==
[~2019-04-26] VITALS: Ht 175.3 cm; Wt 68.0 kg
[~2019-04-26 22:05] MED LIST changes: +FINA5 PO; +LOVA40 PO; +NITR100CA PO; +OLAN5 PO; +PALI3TAB PO; +Therems1 EACH PO; +Vitamin B Comple1 EA PO
== END 2019-04-26 23:28 | disposition home or self-care (01) ==
LOC: ER 22:05
DX: T83.091A Other mechanical complication of indwelling urethral catheter, initial encounter (principal); F32.9 Major depressive disorder, single episode, unspecified; J44.9 Chronic obstructive pulmonary disease, unspecified; F20.9 Schizophrenia, unspecified; I10 Essential (primary) hypertension; Z87.891 Personal history of nicotine dependence; Z88.0 Allergy status to penicillin; Z79.82 Long term (current) use of aspirin; Z79.899 Other long term (current) drug therapy
CPT/HCPCS: 51702; 99283

== ENCOUNTER 2019-05-01 14:15 | Inpatient (IN) | payer OTHER ==
[~2019-05-01] VITALS: Ht 175.3 cm; Wt 70.3 kg
[~2019-05-01 14:15] MED LIST changes: +AIRDUO RESPICL1 EAC2 INH; +BENZ2 PO; -BUDE6HFA INH; -Benztropine Mesy1 MG PO
[2019-05-01 14:44] LABS: Source, Urine Clean Catch
[2019-05-01 14:49] LABS: Bilirubin, Urine Neg (Neg); Blood, Urine 1+ (Neg); Glucose Qualitative, Urine Neg (Neg); Ketones, Urine Neg (Neg); Leukocyte Esterase, Urine 3+ (Neg); Nitrite, Urine Neg (Neg); Protein, Urine Neg (Neg); Urobilinogen, Urine NORM (Normal); pH, Urine 6.5 (5.0-8.0)
[2019-05-01 15:02] LABS: BASOPHILS ABSOLUTE AUTO 0.08 K/mm3 (0.00-0.23); BASOPHILS PERCENT AUTO 1 % (0-2); EOSINOPHILS ABSOLUTE AUTO 0.51 K/mm3 (0.00-0.68); EOSINOPHILS PERCENT AUTO 5 % (0-6); Hematocrit 44.1 % (37.0-53.0); Hemoglobin 14.8 g/dL (13.5-17.5); IMMATURE GRAN ABSOLUTE AUTO 0.12 K/mm3 (0.00-0.10); IMMATURE GRAN PERCENT AUTO 1 % (0-1); LYMPHOCYTES ABSOLUTE AUTO 1.48 K/mm3 (0.84-5.20); LYMPHOCYTES PERCENT AUTO 14 % (21-46); MONOCYTES ABSOLUTE AUTO 0.77 K/mm3 (0.16-1.47); MONOCYTES PERCENT AUTO 7 % (4-13); Mean Corpuscular HGB 31.6 pg (26.0-34.0); Mean Corpuscular HGB Conc 33.6 g/dL (31.5-36.5); Mean Corpuscular Volume 94 fL (80-100); Mean Platelet Volume 9.8 fL (9.1-12.4); NEUTROPHILS ABSOLUTE AUTO 7.83 K/mm3 (1.96-9.15); NEUTROPHILS PERCENT AUTO 73 % (41-73); Platelet Count 312 K/mm3 (150-400); RDW Coefficient Variation 12.3 % (11.7-14.2); RDW Standard Deviation 42.7 fL (35.1-46.3); Red Blood Cell Count 4.69 M/mm3 (4.30-5.90); White Blood Cell Count 10.79 K/mm3 (4.00-11.30)
[2019-05-01 15:25] LABS: U Amphetamine Screen Not Detected; U Barbituate Screen Not Detected; U Benzodiazapine Screen DETECTED; U Buprenorphine Screen Not Detected; U Cannabinoids Screen Not Detected; U Cocaine Screen Not Detected; U Methadone Screen Not Detected; U Methamphetamine Screen Not Detected; U Opiates Screen Not Detected; U Oxycodone Screen Not Detected; U Phencyclidine Screen Not Detected; U Propoxyphene Screen Not Detected
[2019-05-01 15:27] LABS: Color, Urine Yellow (P-Yellow)
[2019-05-01 15:28] LABS: Appearance, Urine Hazy (Clear)
[2019-05-01 15:38] LABS: Bacteria Many /hpf; Squamous Epithelial Cells Rare /hpf (Few)
[2019-05-01 15:43] LABS: Acetaminophen, Random <2.0 ug/mL (10.0-30.0); Alanine Aminotransfer (ALT/SGP 30 U/L (12-78); Albumin, Blood 3.4 g/dL (3.4-5.0); Albumin/Globulin Ratio 1.1 (0.8-1.8); Alk Phos 86 U/L (50-136); Anion Gap 6 mmol/L (6-16); Aspartate Aminotrans (AST/SGOT 20 U/L (12-37); Bilirubin, Total 0.2 mg/dL (0.1-1.0); Blood Urea Nitrogen 14 mg/dL (8-24); Bun/Creatinine Ratio 18.3 (12.0-20.0); CO2, Blood 24 mmol/L (21-32); Calcium, Blood 8.8 mg/dL (8.5-10.1); Chloride, Blood 106 mmol/L (98-108); Creatinine, Blood 0.77 mg/dL (0.60-1.20); Ethanol (Alcohol), Blood, Med <3 mg/dL; Globulin, Blood 3.1 g/dL (2.2-4.0); Glomerular Filtration Rate >60 (60-); Glucose, Blood 112 mg/dL (70-99); Salicylate <1.7 mg/dL (2.8-20.0); Sodium, Blood 136 mmol/L (136-145); Total Protein, Blood 6.5 g/dL (6.4-8.2)
[2019-05-03] MEDS ORDERED: PALIPERIDONE ER9 MG PO (11:43)
[2019-05-03] MEDS ORDERED: ATORVASTATIN CA10 MG PO (11:43)
[2019-05-03] MEDS ORDERED: FORFIVO XL450 MG PO (11:44)
[2019-05-03] MEDS ORDERED: BENADRYL25 MG PO (11:45)
[2019-05-03] MEDS ORDERED: Banophen25 MG PO (11:45)
[2019-05-03] MEDS ORDERED: DIAZ10 PO (11:46)
[2019-05-04 12:40] LABS: BASOPHILS PERCENT AUTO 1 % (0-2); EOSINOPHILS ABSOLUTE AUTO 0.67 K/mm3 (0.00-0.68); EOSINOPHILS PERCENT AUTO 6 % (0-6); Hematocrit 44.1 % (37.0-53.0); Hemoglobin 14.8 g/dL (13.5-17.5); IMMATURE GRAN ABSOLUTE AUTO 0.26 K/mm3 (0.00-0.10); IMMATURE GRAN PERCENT AUTO 2 % (0-1); LYMPHOCYTES ABSOLUTE AUTO 1.85 K/mm3 (0.84-5.20); LYMPHOCYTES PERCENT AUTO 15 % (21-46); MONOCYTES ABSOLUTE AUTO 0.74 K/mm3 (0.16-1.47); MONOCYTES PERCENT AUTO 6 % (4-13); Mean Corpuscular HGB 32.5 pg (26.0-34.0); Mean Corpuscular HGB Conc 33.6 g/dL (31.5-36.5); Mean Platelet Volume 9.7 fL (9.1-12.4); NEUTROPHILS ABSOLUTE AUTO 8.53 K/mm3 (1.96-9.15); NEUTROPHILS PERCENT AUTO 70 % (41-73); Platelet Count 330 K/mm3 (150-400); RDW Coefficient Variation 12.1 % (11.7-14.2); RDW Standard Deviation 43.4 fL (35.1-46.3); Red Blood Cell Count 4.56 M/mm3 (4.30-5.90); White Blood Cell Count 12.15 K/mm3 (4.00-11.30)
[2019-05-04 12:49] LABS: Mean Corpuscular Volume 97 fL (80-100)
[2019-05-04 13:20] LABS: Alanine Aminotransfer (ALT/SGP 30 U/L (12-78); Albumin, Blood 3.4 g/dL (3.4-5.0); Albumin/Globulin Ratio 1.2 (0.8-1.8); Alk Phos 82 U/L (50-136); Anion Gap 6 mmol/L (6-16); Aspartate Aminotrans (AST/SGOT 18 U/L (12-37); Bilirubin, Total 0.3 mg/dL (0.1-1.0); Blood Urea Nitrogen 18 mg/dL (8-24); Bun/Creatinine Ratio 19.5 (12.0-20.0); CO2, Blood 28 mmol/L (21-32); Chloride, Blood 104 mmol/L (98-108); Creatinine, Blood 0.92 mg/dL (0.60-1.20); Globulin, Blood 2.9 g/dL (2.2-4.0); Glomerular Filtration Rate >60 (60-); Glucose, Blood 141 mg/dL (70-99); Potassium, Blood 4.4 mmol/L (3.5-5.5); Sodium, Blood 138 mmol/L (136-145); Total Protein, Blood 6.3 g/dL (6.4-8.2)
--- NOTE | 2019-05-04 14:24 | NUR ---
PT ADMITTED FROM THE ER AND IS A/O X 3 HE IS UNAWARE OF THE SEASON OR THE TIME BUT IS ORIENTED OTHERWISE. PT IS PLEASANT AND COOPERATIVE WITH HIS CARE. SHAHID CATHATER WAS REMOVED PER MD ORDER AND NO ISSUES WERE NOTED. TIP WAS INTACT. PT INFORMED OF NEED TO VOID AND THE PLAN TO BLADDER SCAN HIM WITHIN THE NEXT 4 HOURS TO CHECK FOR RETENTION. PT IS AGREEABLE TO PLAN. PT WAS ORIENTED TO HIS ROOM, CALL LIGHT AND NURSING STAFF AND REMEMBERS MOST OF US FROM PREVIOUS STAYS. PT IS ABLE TO MAKE HIS NEEDS KNOWN.
--- NOTE | 2019-05-04 16:18 | NUR ---
PT VOIDED AFTER REMOVAL OF SHAHID AND URINE AMOUNT IN BLADDER SCAN IS [address] MYRICK WAS NOTIFIED AND GAVE ORDERS OK TO DC BLADDER SCANS Q 4 HOURS WITH MONITORING OF URINE OUTPUT.
--- NOTE | 2019-05-04 17:48 | NUR ---
SHIFT SUMMARY: PT HAS REMAINED A/O X 3 AND VERY PLEASANT AND COOPERATIVE WITH HIS CARE SINCE HIS ADMISSION FROM THE ER. IV ABO/FLUIDS HAVE INFUSED WITH NO ISSUES. PT IS VOIDING SINCE THE REMOVAL OF HIS SHAHID WITH NO ISSUES. PT IS UP AT BEDSIDE EATING DINNER AND CONTINUES TO HAVE A GOOD APPETITE. PT IS UP AD ZACH IN HIS ROOM AND ABLE TO MAKE HIS NEEDS KNOWN.
--- NOTE | 2019-05-05 06:26 | NUR ---
SHIFT SUMMARY PT INDEPENDENT IN ROOM. FORGETFUL AT TIMES. VOIDING IN HAT IN TOILET. HE WAS ABLE TO SLEEP AFTER GETTING HS MEDS. CALM COOPERATIVE AND PLEASANT. CALL LIGHT IN REACH.
--- NOTE | 2019-05-05 17:35 | NUR ---
SHIFT SUMMARY: PT REMAINS A/O X 3 AT BASELINE WITH C/O PAIN X 1 IN HIS SHOULDERS. PT REPORTS TYLENOL BEING MILDLY EFFECTIVE. PT HAS BEEN WATCHING TV IN HIS ROOM AND IS VERY CONTENT. IV FLUIDS/ABO INFUSED WITH NO ISSUE. PT IS COOPERATIVE WITH HIS CARE AND DENIES ANY SELF HARM THOUGHTS OR BEHAVIORS BUT CONTINUES TO REPORT THAT HE IS SAD ABOUT NOT BEING ABLE TO SEE HIS GRANDKIDS. HE CONTINUES TO HAVE A GOOD APPETITE AND IS RESTING IN HIS ROOM.
--- NOTE | 2019-05-06 06:30 | NUR ---
SHIFT SUMMARY PT CALM COOPERATIVE PLEASANT. INDEPENDENT IN ROOM. VOIDING IN TOILET. HE WAS ABLE TO SLEEP T/O NIGHT. NO ACUTE CHANGES.
--- NOTE | 2019-05-06 17:52 | NUR ---
SHIFT SUMMARY NO ACUTE CHANGES. EATING AND DRINKING WELL. QUIET AND AMBULATING IN ROOM THROUGHOUT DAY.
--- NOTE | 2019-05-07 06:23 | NUR ---
JUNIOR HIGH SCHOOL PRINCIPAL SUMMARY PT PLEASANT AND COOPERATIVE. SLEPT THROUGOUT THE NIGHT. NO ACUTE CHANGES. USES TOLIET APPROPRIATELY.
--- NOTE | 2019-05-07 18:18 | NUR ---
NO ACUTE CHANGES THIS SHIFT. VSS, ON RA. PATIENT REPORTS R ARM/HAND PAIN TODAY, IBUPROFEN GIVEN WITHOUT LITTLE RELIEF. X-RAY OF RUE DONE AND DID NOT SHOW ANYTHING ACUTE. PATIENT DOES NOT HAVE AN IV. PATIENT ON 2 MD HOLD AND IS ON VIDEO MONITORING. AWAITING USP PLACEMENT.
--- NOTE | 2019-05-08 04:46 | NUR ---
SHIFT SUMMARY- NO ACUTE EVENTS OVERNIGHT. PT. ASLEEP T/O THE NIGHT, NO APPARENT DISTRESS NOTED. CALL LIGHT WITHIN REACH AND SIDE RAILS UP X2. WILL CONT TO MONITOR.
[2019-05-08 05:48] LABS: Anion Gap 5 mmol/L (6-16); Blood Urea Nitrogen 15 mg/dL (8-24); Bun/Creatinine Ratio 17.7 (12.0-20.0); CO2, Blood 26 mmol/L (21-32); Calcium, Blood 8.9 mg/dL (8.5-10.1); Chloride, Blood 110 mmol/L (98-108); Creatinine, Blood 0.85 mg/dL (0.60-1.20); Glomerular Filtration Rate >60 (60-); Glucose, Blood 89 mg/dL (70-99); Sodium, Blood 141 mmol/L (136-145)
--- NOTE | 2019-05-08 18:04 | NUR ---
NO ACUTE CHANGES THIS SHIFT. PATIENT AWAITING PLACEMENT. NO IV SITE. UP INDEPENDENTLY IN ROOM AND HALLS. CONTINENT OF BOWEL AND BLADDER. PLEASANT AND COOPERATIVE WITH CARE.
--- NOTE | 2019-05-09 04:27 | NUR ---
SHIFT SUMMARY- NO ACUTE CHANGES OVERNIGHT. PT. ASLEEP IN BED T/O THE NIGHT, NO APPARENT DISTRESS NOTED. PT. A&O, INDEP IN ROOM AND AMBULATES IN THE HALLWAY PRN. PT. DENIED ANY NEEDS T/O THE NIGHT. AWAITING PLACEMENT.
--- NOTE | 2019-05-09 18:22 | NUR ---
END OF SHIFT SUMMARY: PATIENT CALM AND COOPERATIVE THROUGHOUT THE SHIFT. PATIENT UP INDEPENDENTLY IN THE ROOM. PATIENT ALERT AND ORIENTED. PATIENT REPORTED PAIN IN HIS RIGHT ARM THIS MORNING. AFTER RECEIVING IBUPROFEN AND TAKING A WARM SHOWER, PATIENT DENIED PAIN FOR THE REST OF THE DAY. PATIENT HAS A GOOD APPETITE. DENIES ANY DISCOMFORT.
--- NOTE | 2019-05-10 05:42 | NUR ---
SHIFT SUMMARY: PATIENT IS A&O TO SELF AND PLACE, VS ARE STABLE, INDEPENDANT IN ROOM. NO BM IN 3 DAYS, PRUNE JUICE AND COLACE WERE GIVEN. PATIENT HAS GOOD APPETITE, 100% OF SNACK EATEN. PLEASANT AND COOPERATIVE WITH STAFF. PATIENT REPORTS PAIN IN R FOREARM AND HAND, IBUPROPHEN WAS GIVEN WITH GOOD EFFECT.
--- NOTE | 2019-05-10 18:13 | NUR ---
ALERT ORIENTED TO SELF AND PLACE. AWARE AWAITING PLACEMENT. COOPERATIVE. UNLABORED RESPIRATIONS. STS COFFEE OR SODA HELPS HIM TO HAVE A BOWEL MOVEMENT. GIVEN BOTH THIS SHIFT. C/O PAIN TO ARM AND MEDICATED FOR IT WITH GOOD RESULTS. INDEPENDENT IN ROOM. STEADY GAIT. BED IN LOW POSITION. CALL LIGHT WITHIN REACH. [facility]
--- NOTE | 2019-05-11 07:13 | NUR ---
05/11/19 0630 SLEPT ALL NIGHT. AWAKENED FOR AM MED AND DENIED ANY PROBLEMS EXCEPT A DRY MOUTH.
--- NOTE | 2019-05-11 10:08 | NUR ---
ADVISED PT. NEEDS SOMETHING FOR CONSTIPATION. COLACE TWICE A DAY NOT HELPING. TRIED PT REMEDIES; SODA, PRUNE JUICE OR COFFEE ALL HAVE NOT HELPED. STS WILL ORDER SOMETHING.
--- NOTE | 2019-05-11 18:15 | NUR ---
ALERT. ORIENTED. COOPERATIVE. AWARE WAITING PLACEMENT W/[facility] OR [facility]. C/O PAIN RT HAND AND MEDICATED FOR IT. STS ALWAYS HURTS, BUT MEDS DO HELP. INDEPENDENT IN ROOM AND HALLWAY. UNLABORED RESPIRATIONS. WCTM
--- NOTE | 2019-05-12 05:10 | NUR ---
SHIFT SUMMARY NO ACUTE CHANGES. PT HAS BEEN PLEASANT AND COOPERATIVE WITH CARE, SLEPT THROUGH THE NIGHT. INDEPENDENT IN . PT DOES REPORT SOME AUDITORY AND VISUAL HALLUCINATIONS, BUT CANT EXACTLY DESCRIBE WHAT HE SEES/HEARS. NO OTHER CHANGES TO REPORT. WILL CNT TO MONITOR AND PROVIDE CARE UNTIL PRESUMED BY ONCOMING RN.
--- NOTE | 2019-05-12 17:44 | NUR ---
SHIFT SUMMARY NO ACUTE CHANGES. PATIENT DENIES PAIN, NAUSEA, AND SHORTNESS OF BREATH. PATIENT UP INDEPENDENT IN THE ROOM. PATIENT WALKS OCCASSIONALLY IN [place] AND WATCHED TV MOST OF SHIFT. CALL LIGHT IN REACH.
--- NOTE | 2019-05-13 04:58 | NUR ---
SHIFT SUMMARY NO ACUTE EVENTS OVERNIGHT. PT IS PLEASANT, COOPERATIVE WITH CARE. A&OX4, ANSWERS ALL ORIENTATION QUESTIONS APPROP. WANDERS IN HALLS INDEPENDENTLY. DENIES PAIN OR DISCOMFORT. WILL CONT TO MONITOR AND PROVIDE CARE UNTIL PRESUMED BY ONCOMING RN.
--- NOTE | 2019-05-13 18:12 | NUR ---
SHIFT SUMMARY HAS BEEN WANDERING AROUND IN HALLWAY AND LAYING IN BED WATCHING TV. HAS BEEN DRESSED SINCE BEING ASSESSED THIS MORNING. REPORTED FEELING CONSTIPATED. GAVE HIM MIRALAX. POWER PUDDING ON MEAL TRAY. ASKED ABOUT MAIL THIS EVENING.
--- NOTE | 2019-05-14 05:26 | NUR ---
SHIFT SUMMARY NO ACUTE EVENTS OVERNIGHT. PT IS CALM AND COOPERATIVE WITH CARE. WANDERS IN HALLS INDEPENDENTLY, AND TAKES SELF TO BED AT NIGHT TIME. PT BECOMES ANXIOUS ABOUT RECIEVING VALIUM ON TIME, BUT OTHERWISE NO CONCERNS AT THIS TIME. WILL CONT TO MONITOR AND PROVIDE CARE UNTIL PRESUMED BY ONCOMING RN.
--- NOTE | 2019-05-14 07:48 | NUR ---
ASSUMED CARE OF PT- RECIEVED REPORT FROM NIGHT REDD FRAIRE- PER REPORT PT IS ALERT AND INDEPENDENT IN THE UNIT. POSSIBLE DISCHARGE TODAY TO [facility]. PT HAS ORDER FOR NO IV ACCESS.
--- NOTE | 2019-05-14 20:11 | NUR ---
SHIFT SUMMARY- PT HAS HAD NO ACUTE CHANGES T/O THE DAY, WAS MEDICATED ONCE FOR PAIN PER EMAR. PT AWAITING PLACEMENT POSSIBLE DC TO [facility] PER REPORT FROM NIGHT RN YEE. NO WORD WAS HEARD TODAY HOWEVER. PASSED ON IN REPORT TO NIGHT RN.
--- NOTE | 2019-05-15 06:28 | NUR ---
GLOBAL SECURITY ARCHITECT SUMMARY PT SLEPT WELL THROUGHOUT NIGHT. A/O X2, EASILY REORIENTED. PLEASANT AND FOLLOWS DIRECTIONS. PT REQUESTED PO PAIN MED WITH AM MEDS FOR RIGHT SHOULDER PAIN. NO ACUTE CHANGES. VSS.
--- NOTE | 2019-05-15 19:11 | NUR ---
PT. WANDERING ABOUT HALLS, NO NOTEABLE CHANGES THIS SHIFT. PT. VERY DIRECTABLE. HAD A BM THIS MORNING
--- NOTE | 2019-05-16 05:08 | NUR ---
SHIFT SUMMARY: 58 Y/O MALE ADMITTED FOR UTI, AND SCHIZOPHERNIA. HAS BEEN PLEASANT AND COOPERATIVE ALL NIGHT. HE WONDERED AROUND IN THE ROOM AND HALLWAY FOR SHORT PERIOD OF TIME THEN LAID DOWN TO SLEEP. HE GOT UP AGAIN AROUND 0400 AND THEN WENT BACK TO BED. HE HAD NO ACUTE CHANGES OR CONCERNS. MEDS WERE GIVEN PER EMAR. WILL REPORT TO DAY SHIFT RN.
--- NOTE | 2019-05-16 19:19 | NUR ---
PT. WITHOUT CHANGE THIS SHIFT, VERY DIRECTABLE.
--- NOTE | 2019-05-17 06:36 | NUR ---
SHIFT SUMMARY NO ACUTE CHANGES THIS SHIFT. AOX2. VSS. FOLLOWS DIRECTIONS, COOPERATIVE W/CARE. THIS AM HE DID REPORT SEEING A "DOG" & TOLD ME HIS BROTHER WAS SLEEPING IN A BUNK BED NEXT TO HIM. DOES HAVE NONSENSICAL SPEECH @TIMES & IS FORGETFUL, YET PLEASENT. DENIES PAIN, N/V OR DYSPNEA. INDEPENDENT IN ROOM. CALL LIGHT IN REACH. WILL MONITOR UNTIL NEXT RN ASSUMES CARE.
--- NOTE | 2019-05-17 15:15 | NUR ---
Mr. Dominguez was busy cleaning/organizing his already very clean room. He is pleasant and appeared to enjoy casual conversation and encouragement. He denies fears. He is uncertain as to why he is hospitalized, but this does not appear to bother him. He was grateful for prayer and companionship. research development director Services will remain available.
--- NOTE | 2019-05-17 16:36 | NUR ---
Shift Summary A/Ox2 to self and place. Pleasant and cooperative with care. Up in room and ambulated in hallway for most of the day. No other acute changes this shift. Pt still awaiting placement.
--- NOTE | 2019-05-18 06:41 | NUR ---
SHIFT SUMMARY NO ACUTE CHANGES THIS SHIFT. HAS NONSENSICAL SPEECH W/VISUAL & AUDITORY HALLUCINATIONS. MENTIONS SEEING & HEARING PEOPLE, KIDS & WOLVES. INDEPENDENTLY AMBULATES THE [place]. VSS. DENIES N/V/D OR SOB. REPORTS BACK PAIN, MEDICATED 1X PER ORDERS. CALL LIGHT IN REACH.
--- NOTE | 2019-05-18 16:56 | NUR ---
Shift Summary A/Ox1 to self. Pleasantly confused and cooperative. Pt stated "There's a man standing outside and he's been standing there for a long time" referring to the statue outside the window. This RN attempted to reorient, but pt was adamant he seen the "man" move. After explaining the difference in color compared to live people, pt acknowledged "I must be seeing things" and then chuckled. Pt easily redirectable. No other changes.
--- NOTE | 2019-05-19 06:47 | NUR ---
SHIFT SUMMARY PATIENT SLIGHTLY DILUSIONAL THIS SHIFT THINKING EVENTS FROM THE TV SHOW HE WAS WATCHING WERE ACTUAL OCCURRENCED THAT HAPPENED HERE [place]. WAS CALM AND PLEASANT ALL SHIFT. SLEPT IN BED MOST OF THE NIGHT. BED IN LOWEST POSITION, CALL LIGHT WITHIN REACH. REPORT GIVEN TO ONCOMING RN.
--- NOTE | 2019-05-19 16:42 | NUR ---
SHIFT SUMMARY NO ACUTE CHANGES TO PRESENT THIS SHIFT. PT HAS MOSTLY REMAINED IN HIS RM TODAY, MAKING HIS BED OVER AND OVER AGAIN, IN BETWEEN NAPS. REQUESTED PAIN MEDICATION FOR SHOULDERS AND FEET. MORTRIN GIVEN PER EMAR; PT REPORTED IT EFFECTIVE. PT IS CONFUSED AT TIMES, THINKING HE IS SOMEWHERE ELSE. PT HAS BEEN CO-OP AND PLEASANT. EASILY REDIRECTED IF NEEDED. DENIES NEEDS MOST OF THE TIME. INDEPENDENT IN RM AND OUT TO [place]. CALL LT IN REACH. POSSIBLE D/C TO [facility]LY NEXT WEEK.
--- NOTE | 2019-05-20 05:57 | NUR ---
PT SLEPT WELL THIS SHIFT. NO ACUTE CHANGES TO REPORT
--- NOTE | 2019-05-20 14:56 | NUR ---
SHIFT SUMMARY NO ACUTE CHANGES TO PRESENT THIS SHIFT. PT HAS BEEN INDEPENDENT IN RM AND OUT TO [place] ALL DAY TODAY. CONFUSED AND DISORIENTED, BUT PLEASANT AND CO-OP. ATTEMPTED TO GO INTO OTHER RM'S A FEW TIMES, BUT WAS EASILY REDIRECTABLE. GOT INTO SHOWER HIMSELF AND LATER ASSISTED BY ASSIGNMENT OFFICER. HOME CLOTHES WASHED IN WASHER D/T SOILING. AT LEAST 2 BM'S TODAY. NO C/O PAIN OR S/SX OF DISTRESS. CALL LT IN REACH. STAFF FROM [facility] TO COME TOMORROW AND ASSESS PT.
--- NOTE | 2019-05-21 04:44 | NUR ---
SHIFT SUMMARY- NO ACUTE CHANGES OVERNIGHT. PT. PLEASANTLY CONFUSED AND COOPERATIVE WITH CARE. PT. INDEPENDENT IN ROOM AND AMBULATED IN THE HALLWAY DURING THE NIGHT. DENIED ANY NEEDS T/O THE SHIFT. RESTING COMFORTABLY IN BED, NO APPARENT DISTRESS NOTED. CALL LIGHT WITHIN REACH AND SIDE RAILS UP X2. WILL CONT TO MONITOR.
--- NOTE | 2019-05-21 16:44 | NUR ---
Shift Summary A/Ox1 to self. Pleasant and cooperative today. Pt has been incontinent/continent of BM this shift per report from CREATIVE INTERN. Offered snacks t/o day. Pt had a mild fever and c/o back pain, medicated per EMAR. Pt is now afebrile. No other acute changes this shift.
--- NOTE | 2019-05-22 05:34 | NUR ---
SHIFT SUMMARY- NO ACUTE CHANGES OVERNIGHT. PT. PLEASANTLY CONFUSED, AMBULATING INDEPENDENTLY IN ROOM AND HALLWAY AT THE BEGINNING OF THE SHIFT. SLEPT WELL DURING THE NIGHT, NO APPARENT DISTRESS NOTED. DENIED ANY NEEDS T/O THE SHIFT. PT. WAITING ON PLACEMENT TO [facility]. CALL LIGHT WITHIN REACH AND SIDE RAILS UP X2. WILL CONT TO MONITOR.
--- NOTE | 2019-05-22 18:27 | NUR ---
SHIFT SUMMARY PT HAS HAD NO COMPLAINTS THIS SHIFT. PT HAS BEEN AMBULATING IN [place] THROUGH OUT THE SHIFT. NO ACUTE CHANGES. WAITING FOR PLACEMENT. WILL CONTINUE TO MONITOR AND REPORT TO ONCOMING RN.
--- NOTE | 2019-05-22 22:22 | NUR ---
Breanna is walking the halls and getting into things. He is confused, tried opening the stairs door as well as the main door, he is very kind and listens when spoken to or redirected, but he then gets into something else. He was also talking about removing the squares from the ceiling and that he wasn't able get them out. I came out of another patient's room to find Breanna standing by a computer with scissors trying to cut his wallet apart so things would fit better. I kindly removed the scissors from him and gave him his wallet back after he handed it to me showing me what he was doing.
--- NOTE | 2019-05-23 05:39 | NUR ---
SHIFT SUMMARY- NO ACUTE CHANGES OVERNIGHT. PT. AMBULATING IN THE HALLWAY T/O THE NIGHT. PLEASANTLY CONFUSED, PAIN MED GIVEN 1X. DENIED ANY OTHER NEEDS. ASLEEP THE REST OF THE SHIFT. WAITING ON PLACEMENT. WILL CONT TO MONITOR.
--- NOTE | 2019-05-23 15:58 | NUR ---
SHIFT SUMMARY THE PATIENT IS PLEASANTLY CONFUSED. VERY COOPERATIVE WITH STAFF. NO NEW CHANGES TO REPORT ON THIS SHIFT. WILL CONTINUE TO MONITOR AND PROVIDE CARE NEEDED.
--- NOTE | 2019-05-24 07:03 | NUR ---
SHIFT SUMMARY PT PLEASANTLY CONFUSED. INDEPENDENT IN ROOM. ABLE TO SLEEP T/O NIGHT. C/O PAIN IN R WRIST AND GUMS AND MEDICATED PER EMAR. ABLE TO BE REORIENTED. REPORT GIVEN TO DAY RN.
--- NOTE | 2019-05-24 16:10 | NUR ---
SHIFT SUMMARY THE PATIENT CONTINUES TO WANDER THE SCU [place], CONFUSED. REDIRECTABLE. NO CHANGES NOTED TO REPORT ON AT THIS TIME.
--- NOTE | 2019-05-25 07:13 | NUR ---
SHIFT SUMMARY PT CONFUSED WANDERING HALLWAYS. HE SLEPT SOME BUT WOULD GET UP FOR AWHILE BEFORE GOING BACK TO BED.
--- NOTE | 2019-05-25 16:39 | NUR ---
NO ACUTE CHANGES. PATIENT CONTINUES TO WANDER HALLS OFTEN GOING INTO OTHER ROOMS. HE HAS BRIEF BUT FREQUENT HALLUCINATIONS. HE IS EASLIY REDIRECTABLE AND COMPLIANT WITH ALL CARES. STAFF WALKED PATIENT DOWN MAIN [place] HE IS BORED AND RESTLESS AT TIMES. HE IS PLEASANTLY CONFUSED
--- NOTE | 2019-05-26 06:26 | NUR ---
SHIFT SUMMARY: A/O TO SELF. PLEASANTLY CONFUSED, FRIENDLY, JOKING WITH STAFF. 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 REMAINED IN ROOM AND SLEPT QUIETLY MUCH OF THE NIGHT- UP WANDERING HALLS AT SHIFT CHANGE. REDIRECTS EASILY. HAS NO COMPLAINTS OF PAIN OR DISCOMFORT.
--- NOTE | 2019-05-26 16:21 | NUR ---
SHIFT SUMMARY: PT IS ALERT AND ORIENTED TO HIMSELF AND SITUATION AT TIMES. HE IS MUCH MORE CONFUSED SINCE LAST I CARED FOR HIM. HE HAS NEEDED REDIRECTION MULTIPLE TIMES THROUGHOUT THE DAY AND NEEDS REMINDERS OF WHERE AND WHY HE IS HERE. HE DECLINED TAKING A SHOWER. HE CONTINUES USUAL TO REPORT AUDITORY HALLUCINATIONS. HE IS UP AD ZACH IN HIS ROOM AND IN THE HALLWAY. HE CONTINUES TO HAVE A GOOD APPETITE AND DRINKS FLUIDS THROUGHOUT THE DAY. HE IS PLEASANT WITH A FLAT AFFECT BUT COOPERATIVE WITH HIS CARE. HE IS ABLE TO MAKE HIS NEEDS KNOWN AND WILL COME FIND HIS NURSE WHEN HE NEEDS SOMETHING. HE HAS RE-MADE HIS BED MUTIPLE TIMES TODAY AND IS CURRENTLY RESTING IN HIS ROOM.
--- NOTE | 2019-05-27 05:53 | NUR ---
SHIFT SUMMARY: VSS. AFEB. A/O TO SELF. COMMUNICATING NEEDS TO HIS ABILITY. STAFF WORK TO DISCOVER WHAT PT IS TRYING TO COMMUNICATE. UP WALKING HALLS UNTIL ABOUT 2300 AND HAS REMAINED IN ROOM SLEEPING SINCE THAT TIME. NO CURRENT COMPLAINTS/REQUESTS. VERY PLEASANTLY CONFUSED.
--- NOTE | 2019-05-27 10:42 | NUR ---
PATIENT TOOK A SHOWER THIS SHIFT AND WHILE PATIENT WAS IN THE SHOWER, HIS CLOTHES WERE TAKEN TO THE LAUNDRY AND ARE BEING WASHED. HE HAS A BLACK T SHIRT AND BLUE JEANS. RN NOTIFIED.
--- NOTE | 2019-05-27 15:39 | NUR ---
PATIENTS LAUNDRY WAS GOTTEN OUT OF THE DRYER AND WAS GIVEN BACK TO THE PATIENT AND HE GOT DRESSED AND IS NOW WEARING THEM.
--- NOTE | 2019-05-27 16:31 | NUR ---
SHIFT SUMMARY: PT HAS BEEN ALERT TO HERSELF AND THE SITUATION AT TIMES. HE CONTINUES TO HAVE INCREASING CONFUSION AND DR SPARKS WAS NOTIFIED WHILE SHE WAS MAKING ROUNDS. PT WAS ASSISTED TO TAKE A SHOWER TODAY AND PUT CLEAN HOSPITAL CLOTHES ON WHILE WE WASHED HIS PERSONAL CLOTHES IN THE WASHER. PT HAS BEEN VERY ANXIOUS AND BORED TODAY NEEDING FREQUENT REDIRECTION. HE CONTINUES TO REARRANGE HIS ENTIRE ROOM. ALL OF THE EXTRA ITEMS WERE TAKEN OUT OF THE ROOM. THIS NURSE HAS TAKEN SEVERAL WALKS WITH THE PT AROUND THE UNIT TODAY TO HELP KEEP HIM OCCUPIED. HE IS SOMETIMES ABLE TO MAKE HIS NEEDS KNOWN BUT NEEDS CUEING ON TOILETING AND ADLS.
--- NOTE | 2019-05-28 04:59 | NUR ---
SHIFT SUMMARY: A/O TO SELF. PLEASANTLY CONFUSED. DENIES PAIN. UP WALKING THE [place] LOOKING FOR SOMETHING TO KEEP HIMSELF BUSY. WALKING IN PT'S ROOMS BUT REDIRECTS EASILY. SPEECH IS EASIER TO UNDERSTAND TONIGHT, CHANGES CONVERSATION TOPICS FREQUENTLY AND CONVERSATION DOES NOT FLOW WITH SITUATION. STAFF REMAINED WITH PT TO PROVIDE CONTINUOS PROMPTS TO GET READY FOR BED. ONCE ADLS COMPLETE, PT TUCKED INTO BED AND HAS REMAINED ASLEEP THROUGH THE NIGHT.
--- NOTE | 2019-05-28 16:51 | NUR ---
SHIFT SUMMARY: PT CONTINUES TO BE DISORIENTED AND CONFUSED. HE IS EASILY RE-DIRECTED AND FOLLOWS INSTRUCTIONS BUT HAS DIFFICULTY UNDERSTANDING SIMPLE TASKS. HE IS COMPLIANT WITH HIS CARE. HIS SPEECH IS GARBLED AND NON-SENSICAL. PT REPORTS THAT THE VOICES HE HEARS ARE LOUDER THAN NORMAL AND ARE TELLING HIM TO "GET ON THE BOAT". DR PARMAR WAS NOTIFIED OF THESE CHANGES AND MADE SOME ADJUSTMENTS TO HIS MEDS REFLECTED ON THE MAR. PT CONTONUES TO HAVE A GOOD APPETITE. HE IS ABLE TO MAKE HIS NEEDS KNOWN AT TIMES AND PACES IN THE HALLWAY AND IN HIS ROOM ALMOST CONSTANTLY.
--- NOTE | 2019-05-29 02:01 | NUR ---
05/28/19 0030 UP IN HALLWAY AND LOOKING FOR BATHRROM. RN REDIRECTED TO ROOM AND BATHRROM BUT REFUSED TO USE IT. HE STARTED PULLING AT BLINDS ON WINDOW AND COULD NOT SAY WHAT HE WANTS. SPEECH GARBLED. REDIRECTED TO BATHROOM AND STOOD OVER TOILET BUT NO VOIDING. PT RETURNED TO HIS BED.
--- NOTE | 2019-05-29 06:49 | NUR ---
05/29/19 0630 PT IS SLEEPING WELL THE LATER PART OF THE SHIFT. WHEN HE DOES WAKE UP HE IS VERY CONFUSED TO SURROUNDINGS AND DOES NOT FOLLOW DIRECTIONS WELL.
--- NOTE | 2019-05-29 15:39 | NUR ---
SHIFT SUMMARY PATIENT WANDERING HALLS PER HIS BASELINE. GIVEN NURSING SCRUBS, PANTS FITTING BETTER WITH DRAW STRING. PLEASANTLY CONFUSED. NO ACUTE ISSUES NOTED.
--- NOTE | 2019-05-30 04:46 | NUR ---
SHIFT SUMMARY- NO ACUTE EVENTS OVERNIGHT. PT. PLEASANTLY CONFUSED. SLEPT WELL T/O THE NIGHT. APPARENT DISTRESS NOTED. CALL LIGHT WITHIN REACH AND SIDE RAILS UP X2. WILL CONT TO MONITOR.
--- NOTE | 2019-05-30 18:50 | NUR ---
SHIFT SUMMARY- PT IS PLESANT AND COOPERATIVE. PT AMBULATING FREQUENTLY IN THE [place]. PT AWAITING PLACMENT.
--- NOTE | 2019-05-31 19:20 | NUR ---
SHIFT SUMMARY- PT IS PLESANT AND COOPERATIVE. PT AWAITING PLACEMENT AT [facility] Jun
--- NOTE | 2019-06-01 05:41 | NUR ---
POWDER GUARD SUMMARY up most of night visiting with staff, making and unmaking his bed and walking in halls. no complaints of discomfort, lots of tangential thinking and speech. appears to be comfortable and happy.
--- NOTE | 2019-06-01 08:30 | NUR ---
PT PLEASANT COOP ALERT TO SELF, SOME THINGS ABOUT ADL'S, NOT SURE DATE, PRES, WHERE HE IS. OR . ADMITS TO AUDITORY AND VISUAL HALUCINATIONS. H/R REG, NO MURMER NOTED. NO TELE. LUNGS CLEAR, RESP EASY, UNLABORED, ON R.A. BT X4 LAST BM NOT KNOWN FOR SURE BUT STATES YEST. VOIDS PER BATHROOM. INDEPENDANT IN ROOM, WALKS HALLS REGULARLY. PACES. BED IN LOW POSITION, CALL LITE IN REACH USUALLY WALKS TO [place] WITH NEEDS.
--- NOTE | 2019-06-01 08:38 | NUR ---
HOUSEKEEPING FOUND PILL ON FLOOR THIS AM. GAVE TO ME. IS PALIPERIDONE. ALLAN PILL. PLACED IN SHARPS PER PROTOCOL
--- NOTE | 2019-06-01 16:31 | NUR ---
pt states ultram really helped. was able to sleep 3+ hours. feels pain better at 6. no other concerns at this time. no anger today. quite pleasant. bed in low position, call lite in reach, calls approp
--- NOTE | 2019-06-01 16:35 | NUR ---
PT PLEASANT TODAY. NO C/O PAIN. WALKING HALLS ALL T/O DAY. NO OTHER CONCERNS AT THIS TIME. BED IN LOW POSITION, CALL LITE IN REACH, CALLS APPROP WALKS TO [place] WHEN HAS NEEDS.
--- NOTE | 2019-06-01 22:54 | NUR ---
PATIENT WALKING HALLS AT SHIFT CHANGE. BACK INTO ROOM EATING A SANDWICH. TRYING TO EXIT [place] A FEW TIMES AND REDIRECTED BACK INTO ROOM.
--- NOTE | 2019-06-02 05:43 | NUR ---
SHIFT SUMMARY PATIENT HAD NO ACUTE CHANGES OBSERVED. WALKED HALLS AT START OF SHIFT. PATIENT TRIES TO ENTER OTHER PT ROOM AND IS REORIENTED BACK TO HIS ROOM. DENIES PAIN, SOB, AND N/V. VSS/AFEBRILE. NO IV ACCESS. AXOX 2-3 W/CONFUSION AND NON-SENSICAL SPEECH. COOPERATUVE WITH CARE. CALL LIGHT IN REACH. BED IN LOWEST POSITION. WILL CONTINUE TO MONITOR UNTIL DAY SHIFT NURSE ASSUMES CARE.
--- NOTE | 2019-06-02 18:32 | NUR ---
SHIFT SUMMARY: AO TO PERSON, PLACE. DIFFICULT TO UNDERSTAND SPEECH AT TIMES. EASILY REDIRECTABLE. CONFUSED. PATIENT DENIES NAUSEA, VOMMITING, OR SOB. REPORTING PAIN X1 TO NECK, MANAGED WELL WITH PRN ADVIL. GOOD PO INTAKE. NO NEW CHANGES OR CONCERNS.
--- NOTE | 2019-06-03 04:32 | NUR ---
SUPPLY REQUIREMENTS OFFICER SUMMARY PT A/O X2 TO SELF AND PLACE. PT WAS UNABLE TO STATE DAY OF THE WEEK, MONTH, THE PRESIDENT AND THE REASON HE WAS IN THE HOSPITAL CORRECTLY. PT NEEDS REDIRECTING FREQUENTLY BUT IS COOPERATIVE. PT WALKED UP AND DOWN THE HALLWAY AT BEGGINNG OF SHIFT. SLEPT WELL THROUGHOUT THE NIGHT. VSS. NO ACUTE CHANGES. WILL CONTINUE TO MONITOR.
--- NOTE | 2019-06-03 17:59 | NUR ---
SHIFT SUMMARY. PT AT BASELINE. CONFUSED, PLEASANT, REDIRECTABLE. WONDERS IN [place] THROUGHOUT SHIFT, INTERACTS WITH STAFF. PT DENIES PAIN, SOB, N/V.
--- NOTE | 2019-06-03 23:42 | NUR ---
PT CALM AND COOPERATIVE. PT STATED HE SAW AN "INGUANA OR LIZARD" COMING THROUGH THE MAR A FEW DAYS AGO. DENIED ANY VOICES. WILL CONTINUE TO MONITOR.
--- NOTE | 2019-06-04 04:24 | NUR ---
COGNOS ARCHITECT SUMMARY PT SLEPT ALL NIGHT. VSS, NO ACUTE CHANGES THIS SHIFT. OCCASIONAL FORGETFULNESS. NEEDS FREQUENT REDIRECTION.
--- NOTE | 2019-06-04 18:25 | NUR ---
SHIFT SUMMARY. ALERT, ORIENTATED TO SELF, PT RECOGNIZED BROTHERS VOICE WHEN HE SPOKE TO HIM ON THE PHONE THIS EVENING. PT INDEPENDENT IN ROOM AND [place], FORGETS WHERE ROOM IS, PT IS EASILY DIRECTABLE AND COOPERATIVE. PT DENIES PAIN, SOB, N/V. LUNGS CLEAR, ON RA. NO NEW CHANGES OR CONCERNS.
--- NOTE | 2019-06-05 04:45 | NUR ---
UPON SHIFT ASSESSMENT, WHEN PT WAS ASKED IF PT HEARS AUDITORY HALLUCINATIONS AT BEGINNING OF SHIFT, PT STATED HE PREVIOUSLY HEARD VOICES LAUGHING AT HIM AND TELLING HIM TO KILL HIMSELF BEFORE COMING TO THE HOSPITAL. STATES HE CURRENTLY DOES NOT HEAR VOICES TELLING HIM TO HURT HIMSELF AT THIS TIME. WHEN I CALLED OUT FOR ANOTHER NURSE NAMED RONNA. PT STATED THAT RONNA HAS AND SHE JUMPED OFF A EFREM. PT HAS SLEPT THROUGHOUT THE NIGHT. WILL CONINTUE TO MONITOR.
--- NOTE | 2019-06-05 05:00 | NUR ---
NO ACUTE CHANGES. PT SLEPT ALL NIGHT. WILL CONTINUE TO MONITOR.
--- NOTE | 2019-06-05 16:57 | NUR ---
SHIFT SUMMARY NO ACUTE CHANGES. PATIENT DENIES PAIN, NAUSEA, AND SHORTNESS OF BREATH. PATIENT UP INDEPENDENT IN THE ROOM AND WALKS FREQUENTLY IN THE [place]. PATIENT AWAITING PLACEMENT.
--- NOTE | 2019-06-06 05:16 | NUR ---
SHIFT SUMMARY NO ACUTE CHANGES THIS SHIFT. VSS. AOX2. FOLLOWS DIRECTIONS & IS EASILY REDIRECTABLE WHEN FORGETFUL. REPORTS HEARING VOICES "SOMETIMES." INDEPENDENTLY AMBULATES IN [place], HAS STEADY GAIT. PLEASENT & COOPERATIVE W/CARE. HAS SLEPT WELL T/O NIGHT. CALL LIGHT IN REACH.
--- NOTE | 2019-06-06 17:21 | NUR ---
SHIFT SUMMARY NO ACUTE CHANGES. PATIENT DENIES PAIN, NAUSEA, AND SHORTNESS OF BREATH. PATIENT UP INDEPENDENT IN ROOM AND WALKS [place] FREQUENTLY. PATIENT ANXIOUS TODAY ABOUT DISCHARGE PLANS. CALL LIGHT IN REACH.
--- NOTE | 2019-06-07 06:00 | NUR ---
SHIFT SUMMARY NO ACUTE EVENTS OVERNIGHT. PATIENT UP INDEPENDENT IN ROOM AND [place]. PATIENT THEN SLEPT ENTIRE SHIFT AFTER TAKING HS MEDICATIONS. PATIENT CONCERNED THAT HIS BROTHER MONICA IS "LAYING IN A DITCH SOMEWHERE". WILL CONTINUE TO MONITOR.
--- NOTE | 2019-06-07 18:47 | NUR ---
NO ACUTE CHANGES NOTED THIS SHIFT. PT HAS BEEN AMBULATING FREELY IN THE [place] AND IS EASILY DIRECTED. PLEASANT AND COOPERATIVE. WILL CONTINUE TO MONITOR AND REPORT TO ONCOMING RN
--- NOTE | 2019-06-08 05:07 | NUR ---
SHIFT SUMMARY NO ACUTE EVENTS OVERNIGHT. PATIENT SLEPT THE ENTIRE SHIFT. VSS. PILLS TAKEN WHOLE WITH WATER. PATIENT PLEASANT. DENIES HEARING VOICES TODAY. DISORIENTED TO PLACE AND TIME. 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 REORIENTED PATIENT. WILL CONTINUE TO MONITOR.
--- NOTE | 2019-06-08 14:57 | NUR ---
WARMED PRUNE JUICE, APPLE JUICE AND MELTED BUTTER GIVEN FOR CONSTIPATION
--- NOTE | 2019-06-08 16:50 | NUR ---
ALERT. ORIENTED. COOPERATIVE. UNLABORED RESPIRATIONS. PLEASANT. STEADY GAIT IN HALLWAY. INDEPENDENT IN ROOM. SHOWERED TODAY. AWAITING PLACEMENT. NO IV ASSESS NEEDED. WCTM
--- NOTE | 2019-06-09 05:44 | NUR ---
SHIFT SUMMARY NO ACUTE EVENTS OVERNIGHT. PATIENT ORIENTED TO SELF AND FAMILY. INDEPENDENT. PATIENT SLEPT THROUGHOUT THE BORDEREAU CLERK. SWALLOWED PILLS WHOLE WITH WATER. WCTM
--- NOTE | 2019-06-09 07:42 | NUR ---
PATIENT TOOK A SHOWER THIS SHIFT BUT REFUSED TO SHAVE WHEN IT WAS OFFERED. PATIENTS CLOTHES ARE BEING WASHED, WILL PUT IN THE DRYER WHEN FINISHED AND WILL GIVE BACK TO HIM WHEN THEY ARE DRY. RN NOTIFIED.
--- NOTE | 2019-06-09 15:37 | NUR ---
PT IS ALERT, ORIENTED TO SELF, PT IS UP IND IN HIS ROOM AND COMES OUT INTO THE [place] TO VISIT, THE PT IS CALM AND COOPERATIVE AND EASILY REDIRECTED IF NEEDED, THE PT APPEARS TO BE BREATHING EASILY ON RA, THE PT REPORTED HAVING NUMBNESS IN HIS HANDS EARLY THIS AM, HOWEVER, HAS NOT COMPLAINED OF ANY OTHER PAIN SO FAR THIS SHIFT, HYDROCORTISONE CREAM WAS APPLIED TO A VERY MILD RASH ON HIS LOWER ABD, CALL LIGHT IN REACH, WILL CONTINUE TO MONITOR AND ASSESS FOR CHANGES
--- NOTE | 2019-06-10 06:34 | NUR ---
SHIFT SUMMARY PT IS A 58 Y/O MALE, ORIGINALLY ADMITTED FOR A UTI AND CURRENTLY WAITING PLACEMENT. HE IS A&O X SELF ONLY, AND WANDERS INDEPENDENTLY. HE DENIED ANY COMPLAINTS OF ACUTE PAIN, NAUSEA OR SOB. VITAL SIGNS STABLE. NO ACUTE CHANGES IN PT CONDITION DURING THE NIGHT. WILL CONTINUE TO MONITOR AND TREAT PER EMAR UNTIL HAND OFF TO DAY SHIFT RN.
--- NOTE | 2019-06-10 15:49 | NUR ---
PT IS ALERT ORIENTED X2, PLEASANT AND COOPERATIVE, THE PT IS UP IND AMBULATING IN THE E[place], THE PT IS EASILY REDIRECTED WHEN NEEDED, THE PT WAS GIVEN VALIUM SCHEDULED, CREAM APPLIED TO LOWER ABD FOR MILD RASH, THE PT WAS NEDICATED FOR RIGHT HAND PAIN X1 WITH IBUPROPHEN, THE PT APPEARS TO BE BREATHING EASILY ON RA, WILL CONTINUE TO MONITOR AND ASSESS FOR CHANGES
--- NOTE | 2019-06-11 05:18 | NUR ---
SHIFT SUMMARY- NO ACUTE CHANGES OVERNIGHT. PT. IS PLEASANTLY CONFUSED AND COOPERATIVE WITH CARE. PT. IS INDEPENDENT IN ROOM AND AMBULATES IN THE HALLWAY W/O DIFFICULTY. ASLEEP ALL SHIFT, NO APPARENT DISTRESS NOTED. PT. AWAITING FOR PLACEMENT. CALL LIGHT WITHIN REACH AND SIDE RAILS UP X2. WILL CONT TO MONITOR.
--- NOTE | 2019-06-11 17:22 | NUR ---
PT DOING WELL AOX2 PLEASANTLY CONFUSED. PT CONTINUES TO BE INDEPENDENT AND FREQUENTLY WALKS THE HALLS OR EATS HIS MEALS IN THE [place]. PT WILL WANT TO LEAVE, BUT EASY TO REDIRECT. WILL CONTINUE TO MONITOR.
--- NOTE | 2019-06-12 04:55 | NUR ---
SHIFT SUMMARY- NO ACUTE EVENTS OVERNIGHT. PT. SLEPT COMFORTABLY T/O THE SHIFT. NO APPARENT DISTRESS NOTED. PT. AMBULATES INDEPENDENTLY IN ROON AND HALLWAY. DENIED ANY NEEDS T/O THE NIGHT. STILL WAITING FOR PLACEMENT. CALL LIGHT WITHINN REACH AND SIDE RAILS UP X2. WILL CONT TO MONITOR.
--- NOTE | 2019-06-12 17:39 | NUR ---
PT AO WITH CONFUSION. PT CONTINUES TO BE PLEASANTLY CONFUSED AND APPROPRIATE. PT WALKS A LOT THOUGHOUT THE DAY. PT WILL REQUEST WHEN HE NEEDS SOMETHING. WILL CONTINUE TO MONITOR.
[2019-06-13 05:45] LABS: BASOPHILS ABSOLUTE AUTO 0.04 K/mm3 (0.00-0.23); BASOPHILS PERCENT AUTO 1 % (0-2); EOSINOPHILS ABSOLUTE AUTO 0.72 K/mm3 (0.00-0.68); EOSINOPHILS PERCENT AUTO 10 % (0-6); Hematocrit 42.6 % (37.0-53.0); Hemoglobin 13.9 g/dL (13.5-17.5); IMMATURE GRAN ABSOLUTE AUTO 0.07 K/mm3 (0.00-0.10); IMMATURE GRAN PERCENT AUTO 1 % (0-1); LYMPHOCYTES ABSOLUTE AUTO 2.35 K/mm3 (0.84-5.20); LYMPHOCYTES PERCENT AUTO 33 % (21-46); MONOCYTES ABSOLUTE AUTO 0.77 K/mm3 (0.16-1.47); MONOCYTES PERCENT AUTO 11 % (4-13); Mean Corpuscular HGB 30.8 pg (26.0-34.0); Mean Corpuscular HGB Conc 32.6 g/dL (31.5-36.5); Mean Corpuscular Volume 95 fL (80-100); Mean Platelet Volume 10.3 fL (9.1-12.4); NEUTROPHILS ABSOLUTE AUTO 3.23 K/mm3 (1.96-9.15); NEUTROPHILS PERCENT AUTO 45 % (41-73); Platelet Count 239 K/mm3 (150-400); RDW Coefficient Variation 12.2 % (11.7-14.2); RDW Standard Deviation 42.4 fL (35.1-46.3); Red Blood Cell Count 4.51 M/mm3 (4.30-5.90); White Blood Cell Count 7.18 K/mm3 (4.00-11.30)
--- NOTE | 2019-06-13 05:56 | NUR ---
SHIFT SUMMARY- NO ACUTE CHANGES OVERNIGHT. PT. SLEPT COMFORTABLY T/O THE SHIFT. NO APPARENT DISTRESS NOTED. PLEASANTLY CONFUSED, INDEPENDENT IN ROOM AND HALLWAY. MEDICATED EARLIER IN THE SHIFT FOR RT HAND PAIN ALONG WITH SCHEDULED MEDS. PT. AWAITING PLACEMENT. CALL LIGHT WITHIN REACH AND SIDE RAILS UP X2. WILL CONT TO MONITOR.
[2019-06-13 06:15] LABS: Alanine Aminotransfer (ALT/SGP 23 U/L (12-78); Albumin, Blood 3.2 g/dL (3.4-5.0); Albumin/Globulin Ratio 1.3 (0.8-1.8); Alk Phos 79 U/L (50-136); Anion Gap 6 mmol/L (6-16); Aspartate Aminotrans (AST/SGOT 18 U/L (12-37); Bilirubin, Total 0.3 mg/dL (0.1-1.0); Blood Urea Nitrogen 15 mg/dL (8-24); CO2, Blood 29 mmol/L (21-32); Calcium, Blood 8.8 mg/dL (8.5-10.1); Chloride, Blood 109 mmol/L (98-108); Creatinine, Blood 0.88 mg/dL (0.60-1.20); Globulin, Blood 2.4 g/dL (2.2-4.0); Glomerular Filtration Rate >60 (60-); Glucose, Blood 86 mg/dL (70-99); Potassium, Blood 4.3 mmol/L (3.5-5.5); Sodium, Blood 144 mmol/L (136-145); Total Protein, Blood 5.6 g/dL (6.4-8.2)
--- NOTE | 2019-06-13 18:46 | NUR ---
NO ACUTE CHANGES NOTED. NO CURRENT COMPLAINTS OF PAIN OR DISCOMFORT NOTED. PATIENT IS INDEPENDENT IN HIS ROOM WITH TOLEITING AND SHOWERS. WILL CONTINUE TO MONITOR FOR CHANGES.
--- NOTE | 2019-06-14 05:22 | NUR ---
SHIFT SUMMARY: NO ACUTE CHANGES. A/O TO SELF AND SURROUNDINGS. COMMUNICATING NEEDS CLEARLY. REPORTED RIGHT HAND PAIN 04/26. ADMINISTERED IBUPROFEN AND ICE GIVEN FOR PAIN. SLEEPING UPON PAIN REEVAL. HAS REMAINED ASLEEP MOST OF THE NIGHT.
--- NOTE | 2019-06-14 18:41 | NUR ---
NO ACUTE CHANGES NOTED THIS SHIFT, WILL CONTINUE TO MONITOR AND REPORT TO ONCOMING RN
--- NOTE | 2019-06-15 05:17 | NUR ---
SHIFT SUMMARY: NO ACUTE CHANGES. VSS. AFEB. CONT TO C/O R HAND PAIN. IBUPROFEN ADMINISTERED. PT STATES PAIN IS NEVER GONE, IT GOES FROM 8/10 TO A 6/10 WITH MEDS. STATES HOT SHOWERS HAVE HELPED PAIN WELL. DESCRIBES PAIN N/T AND BURNING, REPORTS ITCHING IN R HAND KNUCKLES WELL. NO OTHER ISSUES. HAS BEEN PLEASANT AND APPROPRIATE IN CONVERSATION. SLEEPING QUIETLY MOST OF THE NIGHT.
--- NOTE | 2019-06-15 17:42 | NUR ---
NO ACUTE CHANGES THIS SHIFT. PATIENT AWAITING [facility] PLACEMENT.
--- NOTE | 2019-06-16 07:55 | NUR ---
NO ACUTE CHANGES
--- NOTE | 2019-06-16 17:11 | NUR ---
NOT MUCH CHANGING WITH MARKELL. CONTINUES TO WALK THE [place] ALL SHIFT , MAKES HIS BED, SHOWERS HIMSELF, TRYS TO HELP STAFF, DRINKS HIS COFFEE, AND SOMETIMES STAFFS, AND LOOKS OUT THE WINDOW. HE IS PLEASANT AND A NICE MEMBER OF THE BACKHALL. HIS MEMORY SEEMS TO BE IMPROVING HE TALKS OF POSSIBLE MOVE TO [facility]. HE WILL BE MISSED...
--- NOTE | 2019-06-16 19:21 | NUR ---
PT WALKING THE [place], PLEASANT AND COOPERATIVE, COMPLAINT OF A HEADACHE. GAVE TYLENOL PER EMAR. WILL CONTINUE TO MONITOR.
--- NOTE | 2019-06-17 07:38 | NUR ---
NO CHANGES THIS SHIFT
--- NOTE | 2019-06-17 18:27 | NUR ---
PATIENT CONTINUES TO WALK THE [place], ENGAGE THE STAFF, CLEAN HIS ROOM, EAT HIS MEALS, AND TALK TO THOSE WHO WILL LISTEN. HE IS PLEASANT, COOPERATIVE, AND KIND.
--- NOTE | 2019-06-18 05:55 | NUR ---
SHIFT SUMMARY [facility]KE[facility]'S LS CLR T/O AND BT+. HE WOKE UP EARLY THIS MORNING AND STATED HE SLEPT REALLY WELL ALL NIGHT. HE TOOK ALL MEDS WITHOUT ANY ISSUES. HE WALKS AROUND T/O THE UNIT MUCH OF THE TIME WHEN NOT SLEEPING. HE STATED HE LIKES TO WALK.
--- NOTE | 2019-06-18 16:28 | NUR ---
SUMMARY PT HAS BEEN UP AMBULATING IN [place] T/O DAY. CALM, PLEASANT, REDIRECTABLE. VSS. HE IS AWAITING PLACEMENT TO [facility]. ASSURANCE MANAGER STATE UNABLE TO ARRANGE TRANSFER @ THIS TIME. PT NOTIFIED. HX SCHIZOPHRENIA, NO S/S VOICES, HALLUCINATIONS, PARANOIA. HE DOES SEEM RESTLESS, SCHEDULED VALIUM & PACING FOR RELIEF/CONTROL.
--- NOTE | 2019-06-18 18:35 | NUR ---
PT STATE INCREASED ANXIETY/RESTLESSNESS, "VOICES". ISTRATE ORDER EXTRA DOSE VALIUM 5 MG X1 NOW.
--- NOTE | 2019-06-19 05:44 | NUR ---
SHIFT SUMMARY NO ACUTE CHANGES TONIGHT. PT SLEEPS WELL THROUGH THE NIGHT. DOES NOT HAVE ANY COMPLAINTS. ABLE TO MAKE NEEDS KNOWN. WILL CONT TO MONITOR AND PROVIDE CARE UNTIL PRESUMED BY ONCOMING RN.
--- NOTE | 2019-06-19 15:11 | NUR ---
summary PT IS UP EARLY @ ONSET OF SHIFT. A/O X2, HX SCHIZOPHRENIA, STATE NO VOICES THIS AM, STATES VOICES USUALLY IN AFTERNOON. STATE CONTINUING PAIN/DISCOMFORT R HAND, STATES IBUPROFEN PROVIDES BEST RELIEF HOWEVER TEMPORARY, HAVE GIVEN TYLENOL WELL. BIOINFORMATICS COMPUTER SCIENTIST ASSIST HIM TO SHOWER TODAY. HE SPENDS MUCH OF DAY AMBULATING UP & DOWN BENÍTEZ, BORED/RESTLESS. PLEASANT AFFECT. VSS. CASTING MACHINE OPERATOR AUTOMATIC STATE CONTINUING ISSUES
--- NOTE | 2019-06-20 06:36 | NUR ---
SHIFT SUMMARY PT IS A 58 Y/O MALE, CURRENTLY AWAITING PLACEMENT IN A [facility] FACILITY. HE IS A&O X SELF, PLEASANT AND COOPERATIVE WITH CARE. PT IS INDEPENDENT, AND TENDS TO WANDER WHILE AWAKE. PT SLEPT WELL THROUGH THE NIGHT WITH NO COMPLAINTS OF PAIN, NAUSEA OR SOB. VITALS STABLE. NO ACUTE CHANGES IN PT CONDITION NOTED. WILL CONTINUE TO MONITOR AND TREAT PER EMAR UNTIL HAND OFF TO DAY SHIFT RN.
--- NOTE | 2019-06-20 18:23 | NUR ---
SHIFT SUMMARY AWAITING PLACEMENT FOR THIS PT, CARE MANAGEMENT IS MAKING THESE ARRANGEMENTS. GUARDIANSHIP PROCESS HAS BEEN STARTED TODAY. PAIN CREAM ADDED TO THE EMAR FOR RT HAND/WRIST PAIN. PT IS INDEPENDENT IN ROOM AND HALLS, RA. COOPERATIVE WITH CARE AND PLEASANT.
--- NOTE | 2019-06-21 03:06 | NUR ---
58 year old Male with hx of schitzophrenia and several prolonged hospital stays continues to need safe environment for DC. He wanders and is cooperative with meds and treatments. He has chronic rt ue pain that is only partially relieved with ibuprofen 600 mg po , he states good relief with gilberto canales topical to rt hand and forearm TID. No agression or intrusive wandering tonight.
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
--- NOTE | 2019-06-22 14:06 | NUR ---
PATIENT STATES HE IS HEARING VOICES THAT ARE TELLING HIM TO KILL HMSLEF. HE DENIES AY ACUTAL PLAN OR INTECTION OF HARMING HIMSELF.
--- NOTE | 2019-06-22 14:14 | NUR ---
SPOKE WITH DR GARNICA ABOUT PATIENT CHANGE IN CONDITION. PATIENT HAVING AUDITORY HALLUCINCATIONS THAT ARE TELLING HIM TO KILL HIMSELF. DR. GARNICA ORDERED ATIVAN AND LITHIUM AND A NEW PSYCH CONSULT. PATIENT SCORED LOW RISK ON SI REASSESSMENT AND WILL BE MONITORED VIA CAMERA, BUT NO OTHER PRECAUTIONS TAKEN. DR. GARNICA NOTIFIED OF ASSESSMENT SCORE AND PLAN PER PROTOCOL.
--- NOTE | 2019-06-22 23:58 | NUR ---
FEARFUL/PARANOID PT CAME OUT OF ROOM TO TELL STAFF HE WAS FEARFUL, PARANOID & HEARING VOICES. STATES HE IS WORRIED & CONCERNED BECAUSE "HALDOL DOES NOT WORK FOR ME" & HE WISHES HIS HOME MEDICATION WAS NOT CHANGED. IS CURRENTLY UP PACING AROUND ROOM. WILL CONT TO MONITOR.
--- NOTE | 2019-06-23 00:04 | NUR ---
BEGINNING SHIFT SUMMARY ASUMED CARE OF PT AT 1900. PT WAS LYING IN HIS ROOM SLEEPING. PT IS ALERT AND ORIENTED TO SELF. HEART SOUNDS REGULAR, PERIPHERAL PULSES STRONG, NO IV ACCESS. LUNGS SOUNDS CLEAR, DENIES SOB. PT C/O PAIN IN HIS R HAND, MEDICATED PER EMAR. PT IS C/O AUDITORY HALLUTIONATIONS THAT ARE KEEPING HIM AWAKE, PT CAN'T RECEIVE HIS NORMAL NIGHTTIME MEDICATION BECAUSE IT IS A HOME MED THAT THE HOSPITAL DOES NOT CARRY, PT STATES THAT HALDOL DOESNT WORK FOR HIM AND ONLY ADIVAN WILL HELP HIM SLEEP. PT DENIES FEELING SUICIDAL BUT STATES THAT HE FEELS LIKE HE DOESNT BELONG AND HE FEELS ISOLATED.HOSPITALIST CALLED, WILL MEDICATE PER ORDER. CALL LIGHT IN REACH, BED IN LOWEST POSTION, WILL CONTINUE TO MONITOR.
--- NOTE | 2019-06-23 05:20 | NUR ---
END SHIFT SUMMARY NO ACUTE CHANGES NOTED THROUGHOUT THE NIGHT, PT SLEPT ALL NIGHT AFTER BEING MEDICATED WITH AN EXTRA DOSE OF 5MG OF VALIUM PER HOSPITALIST. PT IS CURRENTLY SLEEPING, CALL LIGHT IN REACH, BED IN LOWEST POSITION, WILL CONTINUE TO MONITOR UNTIL DAYSHIFT NURSE ARRIVES.
--- NOTE | 2019-06-23 18:39 | NUR ---
PT UP WALKING HALLS ALL DAY. PACES FRONT TO BACK MOT ALL OF DAY. TALKS TO STAFF MUCH OF TIME. HAS BEEN PLEASANT TODAY. NO OTHER CONCERNS AT THIS TIME. BED IN LOW POSITOIN, CALL LITE IN REACH, WALKS TO BENÍTEZ FOR NEEDS.
--- NOTE | 2019-06-23 23:12 | NUR ---
BEGINNING SHIFT SUMMARY ASSUMES CARE OF PT AT 1900. PT WAS WALKING IN THE HALLS TALKING WITH PEOPLE. PT IS ALERT AND ORIENTED TO SELF. HEART SOUNDS REGULAR, PERIPHERAL PULSES STRONG, NO IV ACCESS. LUNG SOUNDS CLEAR, DENIES SOB AT THIS TIME. BOWEL TONES HYPERACTIVE, DENIES PAIN. PT STATES THAT THE SKIN ON HIS TOES ARE GETTING DRY AND HE IS PUTTING LOTION ON THEM. PT DENIES HAVING AUDITORY HALLUTIONATIONS. PT IS CURRENTLY SLEEPING IN THEIR ROOM, CALL LIGHT IN REACH, BED IN LOWEST POSTION, WILL CONTINUE TO [facility].
--- NOTE | 2019-06-24 05:47 | NUR ---
END SHIFT SUMMARY NO ACUTE CHANGES NOTED THROUGHOUT THE NIGHT. PT SLEPT THROUGHOUT THE NIGHT. PT IS CURRENTLY SLEEPING IN HIS ROOM. CALL LIGHT IN REACH, BED IN [facility] POSTION, WILL CONTINUE TO MONITOR UNTIL DAYSHIFT NURSE ARRIVES.
--- NOTE | 2019-06-24 14:01 | NUR ---
ISTRATE CALLED ME. ASKED IF WE CAN ALLOW PT TO GO SEE HIS DAUGHTER, NENITA. SHE APPARENTLY WORKS IN THE LAB TODAY. CALLED LAB FOR FAMILY MEMBER, NENITA. LAB STATES SHE NOT WORKING TODAY.
--- NOTE | 2019-06-24 18:19 | NUR ---
PT PLEASANT TODAY. DENIES PAIN. HAS BEEN WALKING HALLS REGULARLY NORMAL. REMAINS PLEASANT COOP. COMPLIANT. NO OTHER CONCERNS PENDING SNF PLACEMENT. BED IN LOW POSITION, CALL LITE IN REACH. CALLS OUT OR WALKS TO HALLWAY FOR NEEDS
--- NOTE | 2019-06-25 03:58 | NUR ---
SHIFT SUMMARY NO ACUTE CHANGES THIS SHIFT. VSS. PLEASENT & COOPERATIVE W/CARE. AOX3, FORGETFUL @TIMES BUT EASILY REDIRECTED. INDEPENDENT IN ROOM & AMBULATES HALLS. DENIES N/V, SOB OR PAIN. DENIES ANY AUDITORY OR VISUAL HALLUCINATIONS. CALL LIGHT IN REACH.
--- NOTE | 2019-06-25 18:49 | NUR ---
PATIENT HAD AN UNEVENTFUL SHIFT WITH NO NEW EVENTS TO REPORT. WILL CONTINUE TO MONITOR.
--- NOTE | 2019-06-26 01:33 | NUR ---
PATIENT STILL SLEEPING SINCE ASSESSMENT. CALL LIGHT IN REACH.
--- NOTE | 2019-06-26 04:05 | NUR ---
SHIFT SUMMARY PATIENT HAD NO ACUTE CHANGES OBSERVED. AXOX 3 AND INDEPENDENT IN ROOM AND HALLS. VSS/AFBERILE. COOPERATIVE WITH CARE. DENIES PAIN, SOB, AND N/V. NO IV ACCESS. TAKES MEDICATION WHOLE WITH WATER. PATIENT ABLE TO GET TO SLEEP EARLY AFTER ASSESSMENT. CALL LIGHT IN REACH. BED IN LOWEST POSITION. WILL CONTINUE TO MONITOR UNTIL DAY SHIFT NURSE ASSUMES CARE.
--- NOTE | 2019-06-26 16:30 | NUR ---
SHIFT SUMMARY THE PATIENT HAS BEEN PLEASANT AND COOPERATIVE WITH STAFF. NO CHANGES TO REPORT THIS SHIFT.
--- NOTE | 2019-06-27 05:36 | NUR ---
SHIFT SUMMARY PLAN IS FOR PLACEMENT IN A LTC FACILITY. CARE MANAGEMENT IS SEEKING PLACEMENT FOR THIS PT. NO IV ACCESS, RA, INDEPENDENT IN ROOM AND BENÍTEZ. PLEASANTLY CONFUSED AND EASILY REDIRECTS. 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 SOFT BITE SIZE DIET. TAKES PILLS WHOLE W/WATER, COOPERATES FULLY WITH CARE. CONTINENT. HE SLEPT THROUGHOUT MOST OF THIS SHIFT W/NO REPORTED DISCOMFORT OF ANY KIND.
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
--- NOTE | 2019-06-28 05:16 | NUR ---
SHIFT SUMMARY PT PLEASANTLY CONFUSED AND COOPERATIVE WITH CARE. EASY TO REDIRECT. FREQUENTLY WALKS IN THE HALLWAYS. NO IV ACCESS, INDEPENDENT, RA. PLAN IS FOR GUARDIANSHIP AND LONG-TERM PLACEMENT. CARE MANAGEMENT IS EXPLORING THOSE OPTIONS. HX:SCHIZOPHRENIA, AUDITORY HALLUCINATIONS, AND SI. HX:COMPARTMENT SYNDROME OF RT ARM. PT STATED TO DAY NURSE THAT HE FELL IN HIS ROOM TODAY. PT IS STILL AMBULATORY WITH NO VISIBLE INJURIES. HE DOES STATE HE HAS RESULTING SORENESS/PAIN FOR WHICH THE DAY HOSPITALIST AMENDED THE EMAR WITH IBUPROFEN.
--- NOTE | 2019-06-28 12:46 | NUR ---
PT SERVED WITH GUARDIANSHIP PAPERWORK BY COURT EMPLOYEE.
[2019-06-28] MEDS ORDERED: ACET325 PO (16:38)
[2019-06-28] MEDS ORDERED: ALBU2.5V5 INH (16:38)
[2019-06-28] MEDS ORDERED: Senna Plus Tab1 EACH PO (16:39)
[2019-06-28] MEDS ORDERED: LIDOCAINE PAIN1 EACH TOP (16:42)
[2019-06-28] MEDS ORDERED: HALO5 PO (16:42)
[2019-06-28] MEDS ORDERED: GABA100 PO (16:42)
[2019-06-28] MEDS ORDERED: BENGAY113 GM TOP (16:43)
--- NOTE | 2019-06-28 16:58 | NUR ---
SHIFT SUMMARY- PT PLEASANT AND COOPERATIVE, PT UP AMBULATING HALLS MOST OF THE DAY. PT REPORTS PAIN TO RIGHT WRIST AND RIGHT HIP, PT REPORTS IMPROVEMENT WITH IBUPROFEN AND LIDODERM PATCH. LS CLEAR, ON RA. HRR. PT SERVED GUARDIANSHIP PAPERS TODAY. PT AWAITING PLACEMENT POSSIBLY TOMORROW. NO OTHER ACUTE CHANGES THIS SHIFT.
--- NOTE | 2019-06-29 04:18 | NUR ---
SHIFT SUMMARY PLAN IS FOR HOPEFUL PLACEMENT DURING DAY SHIFT THIS MORNING. GUARDIANSHIP PAPERS SERVED DURING YESTERDAY'S DAYSHIFT. PT STATES THAT THE SCHEDULED IBUPROFEN CUTS HIS PAIN FROM A RATING OF TEN, TO A RATING OF SIX. HE RESTED COMFORTABLY THROUGHOUT SHIFT. HE STATES HE IS LOOKING FORWARD TO PLACEMENT AND FEELS HOPEFUL. NO NEW CONCERNS TO REPORT. HE IS ON RA, COOPERATIVE WITH CARE, EASILY REDIRECTED, INDEPENDENT. HE DENIES AUDITORY HALLUCINATIONS OR SI. HX: SCHIZOPHRENIA, SI.
--- NOTE | 2019-06-29 18:24 | NUR ---
NO ACUTE CHANGES TO PATIENT. REPORTED HAND IS HURTING . MEDICATED PER EMAR
--- NOTE | 2019-06-30 05:21 | NUR ---
PT ALERT AND ORIENTED, COOPERATIVE WITH CARE THIS SHIFT. PT INDEPENDENT IN THE ROOM AND WALKS IN THE HALLWAY WHEN AWAKE. PT HAS SLEPT THROUGH MUCH OF THIS SHIFT. PT CURRENTLY SLEEPING IN BED.
--- NOTE | 2019-06-30 16:02 | NUR ---
NO ACUTE CHANGES TO PATIENT. WALKED THE HALLS, ATE HIS MEALS, CLEANED HIS ROOM, TALKED WITH STAFF, AND SAT IN HIS CHAIR. HE REMAINS FRIENDLY AND EXCITED TO GET TO HIS NEW HOME.
--- NOTE | 2019-07-01 05:14 | NUR ---
PT ALERT, ORIENTED, AND COOPERATIVE WITH CARE THIS SHIFT. PT INDEPENDENT IN ROOM AND WALKING IN THE BENÍTEZ THIS SHIFT. PT HAS SLEPT THROUGH MUCH OF THIS SHIFT WITHOUT ISSUE. PT CURRENTLY SLEEPING IN BED.
--- NOTE | 2019-07-01 18:34 | NUR ---
NO ACUTE CHANGES. CONTINUES TO WALK THE HALLS AND CONVERSE WITH STAFF. IS COMPLETELY INDEPENDENT. CALL LIGHT WITHIN REACH THOUGH NOT NEEDED HE JUST COMES AND FINDS THE NURSE .
--- NOTE | 2019-07-02 04:40 | NUR ---
SHIFT SUMMARY PT HAD SOME INCREASED RIGHT HAND PAIN. PT ORDERED MEDS DID NOT HELP RELIEVE PAIN. PROVIDER CALLED AND HYDROCODONE WAS ORDERED. PT RESPONDED WELL WITH DECREASED PAIN. PT SLEPT WELL. PT IS CURRENTLY AWAKE AND PLESANT.
--- NOTE | 2019-07-02 13:32 | NUR ---
PT DISCHARGED PT VERBALIZED UNDERSTANDING OF DISCHARGE TO [facility], ORDERS WERE FAXED TO [facility], HARD SCRIPT FOR VALIUM WAS INCLUDED IN PACKET, THE PT WAS TRANSFERED VIA WHEELCHAIR ACCOMPANIED BY [facility], THE PT APPEARED TO BE BREATHING EASILY ON RA AT THE TIME OF DC
== END 2019-07-02 12:36 | disposition home or self-care (01) | DRG 885 ==
LOC: ER 14:15 → EOR 14:16 → MEDS 05-04 12:03
PROVIDERS: Internal Medicine; Nurse Practitioner Acute Care; Physician Assistant; ADMIT Internal Medicine
DX: F20.9 Schizophrenia, unspecified (principal); G92 Toxic encephalopathy; T83.511A Infection and inflammatory reaction due to indwelling urethral catheter, initial encounter; R45.851 Suicidal ideations; N39.0 Urinary tract infection, site not specified; F02.81 Dementia in other diseases classified elsewhere, unspecified severity, with behavioral disturbance; J44.9 Chronic obstructive pulmonary disease, unspecified; I10 Essential (primary) hypertension; F02.80 Dementia in other diseases classified elsewhere, unspecified severity, without behavioral disturbance, psychotic disturbance, mood disturbance, and anxiety; F17.210 Nicotine dependence, cigarettes, uncomplicated; B96.5 Pseudomonas (aeruginosa) (mallei) (pseudomallei) as the cause of diseases classified elsewhere; B96.89 Other specified bacterial agents as the cause of diseases classified elsewhere; N40.1 Benign prostatic hyperplasia with lower urinary tract symptoms; R33.8 Other retention of urine; F10.21 Alcohol dependence, in remission; F32.9 Major depressive disorder, single episode, unspecified; M25.531 Pain in right wrist; G30.0 Alzheimer's disease with early onset; R56.9 Unspecified convulsions
CPT/HCPCS: 36415; 51798; 73100; 73120; 73130; 80048; 80053; 81001; 84443; 85025; 85651; 87077; 87086; 87186; 94640; 94760; 99285-25; A9270; A9270-GY; C9113; G0378; G0480; J0696; J7030; J7050; Q0163; Q3014

== ENCOUNTER 2020-08-11 08:45 | Emergency (ER) | payer OTHER ==
[~2020-08-11] VITALS: Ht 175.3 cm; Wt 81.7 kg
[~2020-08-11 08:45] MED LIST changes: +ALBU2.5V5 NEB; +ATOR40TA PO; +Ativan1 MG PO; +BENGAY113 GM TOP; +BISA10S PR; +BUSP5 PO; +Banophen25 MG PO; +Baza Protect C142 GM TOP; +Eq Liquid Anta769 ML PO; +FORFIVO XL450 MG PO; +GABAPENTIN600 MG PO; +HALO5 PO; +INVEGA IM; +INVEGA SUS117 MG/0.7 IM; +LIDOCAINE PAIN1 EACH TOP; +LOPE2C PO; +MILK OF MA400 MG/5 M PO; +MOBIC15 MG PO; +ONDA4ODT SL; +Senna Plus Tab1 EACH PO; +TRIPLE ANTIBIO TOP; +VENL75ER PO; +[UNRECOGNIZED DRUG - OTHER] TOP
[2020-08-11] MEDS ORDERED: BENZ100A PO (08:59)
[2020-08-11] MEDS ORDERED: DIAZ10 PO (08:59)
[2020-08-11] MEDS ORDERED: PALI3TAB PO (09:00)
[2020-08-11] MEDS ORDERED: INVEGA SUS234 MG/1.1 IM (09:01)
[2020-08-11] MEDS ORDERED: OMEP20ER PO (09:02)
[2020-08-11 09:47] LABS: BASOPHILS ABSOLUTE AUTO 0.05 K/mm3 (0.00-0.23); BASOPHILS PERCENT AUTO 1 % (0-2); EOSINOPHILS ABSOLUTE AUTO 0.27 K/mm3 (0.00-0.68); EOSINOPHILS PERCENT AUTO 3 % (0-6); Hematocrit 44.8 % (37.0-53.0); Hemoglobin 14.1 g/dL (13.5-17.5); IMMATURE GRAN ABSOLUTE AUTO 0.19 K/mm3 (0.00-0.10); IMMATURE GRAN PERCENT AUTO 2 % (0-1); LYMPHOCYTES ABSOLUTE AUTO 1.59 K/mm3 (0.84-5.20); LYMPHOCYTES PERCENT AUTO 16 % (21-46); MONOCYTES ABSOLUTE AUTO 0.76 K/mm3 (0.16-1.47); MONOCYTES PERCENT AUTO 7 % (4-13); Mean Corpuscular HGB 31.6 pg (26.0-34.0); Mean Corpuscular HGB Conc 31.5 g/dL (31.5-36.5); Mean Corpuscular Volume 100 fL (80-100); Mean Platelet Volume 10.5 fL (9.1-12.4); NEUTROPHILS ABSOLUTE AUTO 7.37 K/mm3 (1.96-9.15); NEUTROPHILS PERCENT AUTO 72 % (41-73); Platelet Count 210 K/mm3 (150-400); RDW Coefficient Variation 13.6 % (11.7-14.2); RDW Standard Deviation 50.8 fL (35.1-46.3); Red Blood Cell Count 4.46 M/mm3 (4.30-5.90); White Blood Cell Count 10.23 K/mm3 (4.00-11.30)
[2020-08-11 10:09] LABS: Alanine Aminotransfer (ALT/SGP 29 U/L (12-78); Albumin, Blood 3.3 g/dL (3.4-5.0); Albumin/Globulin Ratio 1.2 (0.8-1.8); Alk Phos 124 U/L (50-136); Anion Gap 8 mmol/L (6-16); Aspartate Aminotrans (AST/SGOT 26 U/L (12-37); Bilirubin, Total 0.3 mg/dL (0.1-1.0); Blood Urea Nitrogen 6 mg/dL (8-24); Bun/Creatinine Ratio 7.5 (12.0-20.0); CO2, Blood 28 mmol/L (21-32); Calcium, Blood 8.5 mg/dL (8.5-10.1); Chloride, Blood 106 mmol/L (98-108); Globulin, Blood 2.7 g/dL (2.2-4.0); Glomerular Filtration Rate >60 (60-); Glucose, Blood 108 mg/dL (70-99); Potassium, Blood 4.1 mmol/L (3.5-5.5); Sodium, Blood 142 mmol/L (136-145)
[2020-08-11] MEDS ORDERED: CYCL10 PO (10:36)
[2020-08-11] MEDS ORDERED: OXYC5 PO (10:36)
== END 2020-08-11 10:46 | disposition home or self-care (01) ==
LOC: ER 08:45
PROVIDERS: Physician Assistant
DX: M54.2 Cervicalgia (principal); G89.29 Other chronic pain; I10 Essential (primary) hypertension; J44.9 Chronic obstructive pulmonary disease, unspecified; Z87.891 Personal history of nicotine dependence
CPT/HCPCS: 36415; 71046; 72040; 80053; 85025; 96374; 99284-25; A9270; J1885

== ENCOUNTER → 2020-08-13 | Outpatient (CLI) | payer OTHER ==
[~2020-08-13] MED LIST changes: +CYCL10 PO; +INVEGA SUS234 MG/1.1 IM; +OXYC5 PO
[2020-08-13 19:03] LABS: Source, Urine Clean Catch
[2020-08-13 19:36] LABS: Appearance, Urine Clear (Clear); Bilirubin, Urine Neg (Neg); Blood, Urine Neg (Neg); Color, Urine Yellow (P-Yellow); Glucose Qualitative, Urine Neg (Neg); Ketones, Urine Neg (Neg); Leukocyte Esterase, Urine Neg (Neg); Nitrite, Urine Neg (Neg); Protein, Urine Neg (Neg); Specific Gravity, Urine 1.005 (1.003-1.022); Urobilinogen, Urine NORM (Normal); pH, Urine 6.5 (5.0-8.0)
== END | disposition home or self-care (01) ==
LOC: LAB SHORT 19:01 → LAB 19:01
PROVIDERS: Family Medicine
DX: N39.0 Urinary tract infection, site not specified (principal)
CPT/HCPCS: 81003

== ENCOUNTER 2020-08-15 09:38 | Emergency (ER) | payer OTHER ==
[~2020-08-15] VITALS: Ht 175.3 cm; Wt 81.7 kg
== END 2020-08-15 13:11 | disposition home or self-care (01) ==
LOC: ER 09:38
DX: M54.2 Cervicalgia (principal); I10 Essential (primary) hypertension; J44.9 Chronic obstructive pulmonary disease, unspecified; F17.210 Nicotine dependence, cigarettes, uncomplicated; Z88.0 Allergy status to penicillin; Z88.8 Allergy status to other drugs, medicaments and biological substances; Z79.899 Other long term (current) drug therapy; Z79.82 Long term (current) use of aspirin
CPT/HCPCS: 96372; 99283-25; J1885

== ENCOUNTER → 2021-12-16 | Outpatient (CLI) | payer OTHER ==
[2021-12-16 12:06] LABS: Albumin, Blood 3.9 g/dL (3.4-5.0); Anion Gap 9 mmol/L (6-16); Blood Urea Nitrogen 12 mg/dL (8-24); CHOL/HDL RATIO 3.2; CO2, Blood 26 mmol/L (21-32); Calcium, Blood 8.7 mg/dL (8.5-10.1); Chloride, Blood 96 mmol/L (98-108); Cholesterol 171 mg/dL (50-200); Creatinine, Blood 0.86 mg/dL (0.60-1.20); Glomerular Filtration Rate 98 (60-); Glucose, Blood 101 mg/dL (70-99); HDL Cholesterol 53 mg/dL (>39); LDL/HDL RATIO 1.5; Low Density Lipoprotein Chol 81 mg/dL (0-110); Phosphorus, Blood 3.4 mg/dL (2.5-4.9); Potassium, Blood 4.5 mmol/L (3.5-5.5); Sodium, Blood 131 mmol/L (136-145); Triglycerides 184 mg/dL (30-160); Very Low Density Lipoprot Chol 36 mg/dL (6-32)
== END | disposition home or self-care (01) ==
LOC: LAB 10:23 → LAB SHORT 10:23
PROVIDERS: Family Medicine
DX: E78.5 Hyperlipidemia, unspecified (principal); I10 Essential (primary) hypertension
CPT/HCPCS: 80061; 80069; 83036

== ENCOUNTER → 2021-12-21 | Outpatient (CLI) | payer OTHER ==
[2021-12-21 12:27] LABS: Source, Urine Clean Catch
[2021-12-21 14:09] LABS: Appearance, Urine Clear (Clear); Bilirubin, Urine Neg (Neg); Blood, Urine Neg (Neg); Glucose Qualitative, Urine Neg (Neg); Ketones, Urine Neg (Neg); Leukocyte Esterase, Urine Neg (Neg); Nitrite, Urine Neg (Neg); Protein, Urine Neg (Neg); Urobilinogen, Urine NORM (Normal); pH, Urine 6.5 (5.0-8.0)
[2021-12-21 14:25] LABS: Color, Urine Pale Yellow (P-Yellow)
== END | disposition home or self-care (01) ==
LOC: LAB 09:00 → LAB SHORT 09:00
PROVIDERS: Family Medicine
DX: N39.0 Urinary tract infection, site not specified (principal)
CPT/HCPCS: 81003

== ENCOUNTER → 2022-01-12 | Outpatient (CLI) | payer OTHER ==
[2022-01-12 09:57] LABS: Body Fluid Crystals NEG (NEGATIVE)
== END | disposition home or self-care (01) ==
LOC: LAB 09:17 → LAB SHORT 09:17
PROVIDERS: Family Medicine
DX: M70.21 Olecranon bursitis, right elbow (principal); M10.021 Idiopathic gout, right elbow
CPT/HCPCS: 89060

== ENCOUNTER 2022-07-27 20:10 | Emergency (ER) | payer OTHER ==
[~2022-07-27] VITALS: Ht 175.3 cm; Wt 91.2 kg
[2022-07-27] MEDS ORDERED: BENZ2 (21:49)
[2022-07-28] MEDS ORDERED: PRED20 PO (06:52)
== END 2022-07-28 01:00 | disposition home or self-care (01) ==
LOC: ER 20:10
DX: J44.1 Chronic obstructive pulmonary disease with (acute) exacerbation (principal); I10 Essential (primary) hypertension; Z88.0 Allergy status to penicillin; Z88.8 Allergy status to other drugs, medicaments and biological substances; Z79.899 Other long term (current) drug therapy; Z79.82 Long term (current) use of aspirin; Z87.891 Personal history of nicotine dependence
CPT/HCPCS: 36415; 71046; 93005; 93010; 94640; 94664

== ENCOUNTER 2022-10-26 10:13 | Inpatient (IN) | payer OTHER ==
[~2022-10-26] VITALS: Ht 175.3 cm; Wt 90.5 kg
[~2022-10-26 10:13] MED LIST changes: -AIRDUO RESPICL1 EAC2 INH; -ALBU2.5V5 NEB; +ALBUTEROL1.25 MG/3; +FLUTICASONE-SA1 EAC9; +GABA800 PO; -GABAPENTIN600 MG PO
[2022-10-26 10:36] LABS: Base Excess Venous 3.2 mmol/L; PCO2 Venous 41.8 mmHg (38-42); pH Blood Venous 7.43 (7.34-7.37)
[2022-10-26] MEDS ORDERED: ANORO ELLIPTA1 EACH INH (11:01)
[2022-10-26] MEDS ORDERED: BENADRYL25 MG PO (11:03)
[2022-10-26] MEDS ORDERED: PALI6TA PO (11:06)
[2022-10-26] MEDS ORDERED: QUET100 PO (11:07)
[2022-10-26] MEDS ORDERED: BRINTELLIX10 MG PO (11:08)
[2022-10-26] MEDS ORDERED: IBU800 MG PO (11:15)
[2022-10-26] MEDS ORDERED: MECL25 PO (11:17)
[2022-10-26] MEDS ORDERED: DULCOLAX400 MG/5 M PO (11:18)
[2022-10-26] MEDS ORDERED: NYSTRIT (11:19)
[2022-10-26] MEDS ORDERED: ONDA4ODT SL (11:21)
[2022-10-26] MEDS ORDERED: Seroquel Xr50 MG PO (11:22)
[2022-10-26 12:22] LABS: Influenza A, PCR NEGATIVE (NEGATIVE); Influenza B, PCR NEGATIVE (NEGATIVE); Resp Syncytial Virus, PCR NEGATIVE (NEGATIVE); SARS-Cov-2 (COVID-19) PCR, MMC NEGATIVE (NEGATIVE)
[2022-10-26 13:08] LABS: BASOPHILS ABSOLUTE AUTO 0.03 K/mm3 (0.00-0.23); BASOPHILS PERCENT AUTO 0 % (0-2); Bun/Creatinine Ratio 15.3 (12.0-20.0); Calcium, Blood 8.8 mg/dL (8.5-10.1); Creatinine, Blood 0.72 mg/dL (0.60-1.20); EOSINOPHILS ABSOLUTE AUTO 0.11 K/mm3 (0.00-0.68); EOSINOPHILS PERCENT AUTO 1 % (0-6); Hematocrit 41.7 % (37.0-53.0); Hemoglobin 13.9 g/dL (13.5-17.5); IMMATURE GRAN ABSOLUTE AUTO 0.03 K/mm3 (0.00-0.10); IMMATURE GRAN PERCENT AUTO 0 % (0-1); LYMPHOCYTES ABSOLUTE AUTO 1.05 K/mm3 (0.84-5.20); LYMPHOCYTES PERCENT AUTO 9 % (21-46); MONOCYTES ABSOLUTE AUTO 1.16 K/mm3 (0.16-1.47); MONOCYTES PERCENT AUTO 10 % (4-13); Mean Corpuscular HGB 34.5 pg (26.0-34.0); Mean Corpuscular HGB Conc 33.3 g/dL (31.5-36.5); Mean Corpuscular Volume 104 fL (80-100); Mean Platelet Volume 10.8 fL (9.1-12.4); NEUTROPHILS ABSOLUTE AUTO 9.13 K/mm3 (1.96-9.15); NEUTROPHILS PERCENT AUTO 79 % (41-73); Platelet Count 211 K/mm3 (150-400); Potassium, Blood 4.1 mmol/L (3.5-5.5); RDW Coefficient Variation 12.8 % (11.7-14.2); RDW Standard Deviation 49.1 fL (35.1-46.3); Red Blood Cell Count 4.03 M/mm3 (4.30-5.90); White Blood Cell Count 11.51 K/mm3 (4.00-11.30)
--- NOTE | 2022-10-26 15:30 | NUR ---
Received report from Kofi RAINEY. Patient arrived via gurney and self transferred to PCU 3 bed. He was on 3L O2 humidified via NC and sats Low 90%'s.He is alert and oriented to self and place. He has 20ga field start IV in LW. He has urinal at bedside incase needed. He is able to follow commands slowly. He is independent with positioning in bed. He is forgetful at times and need re-direction and does well, SEE VS in EMR
[2022-10-26 15:55] VITALS: BP 143/80
--- NOTE | 2022-10-26 16:36 | NUR ---
Pt transfered from ED. First impression Pt was reactive to verbal stimuli, Pt able to follow commands, able to indepedently transfer to bed. Patient is A/O x3 oriented to himself, time, and situation. Pt has yellow spotting on tongue. Patient has PERRLA x4, No facial drooping, equal strength in 4x extremities. Pulses +2 in 4x extremities. Pt has scattered bruising and scaring distally on both arms. No JVD, Trachea midline. Pt is experitory wheezing, bilateral ronchi in upper lobes diminshed in bases. Upon exertion oxygen sats drop to low-mid 80s. Upon abdominal palpation pt stated 7/10 dull pain in RUQ. No observed edema in 4x extremities.
[2022-10-26 17:01] VITALS: BP 124/64
--- NOTE | 2022-10-26 17:34 | NUR ---
Patient has been resting since arrival and is independent in bed. He remains on 4L O2 humidified and sats low 90%'s. He is sitting up right now eating dinner independently. He denies any current needs or pain.
[2022-10-26 20:19] VITALS: BP 121/61
[2022-10-26 23:46] VITALS: BP 110/77
[2022-10-27 04:00] VITALS: BP 114/65
--- NOTE | 2022-10-27 04:55 | NUR ---
SHIFT SUMMARY THIS RN ASSUMED CARE OF PATIENT AT 1900. PATIENT ALERT AND ORIENTED 3-4, ABLE TO ANSWER QUESTIONS APPROPRIATELY BUT ALSO TALKS ABOUT THINGS THAT ARE NOT APPROPRIATE TO CONVERSATION. PATIENT FREQUENTLY FORGETS ABOUT MONITORING EQUIPMENT AND PULLS OFF TELE, SPO2, AND O2. WHEN ON RA PT DESATS TO 86-88%. OTHERWISE PATIENT WITH 4L VIA NC WITH SPO2 >92%. BP STABLE. SR ON MONITOR WITH HR 70-80'S. AFEBRILE. PATIENT HAS CALLED APPROPRIATELY SEVERAL TIMES THROUGHOUT THIS SHIFT. AMBULATES TO THE BATHROOM WITH SBA FROM STAFF. ON CAMERA WITH BED ALARM ON FOR SAFETY. PATIENT WITH WHEEZES HEARD T/O WITH PRN BREATHING TREATMENTS GIVEN. BS+. PPP. BED IN LOWEST POSITION AND CALL LIGHT WITHIN REACH. THIS RN WILL CONTINUE TO MONITOR UNTIL SHIFT CHANGE AT 0700.
[2022-10-27 05:03] LABS: BASOPHILS ABSOLUTE AUTO 0.01 K/mm3 (0.00-0.23); BASOPHILS PERCENT AUTO 0 % (0-2); EOSINOPHILS PERCENT AUTO 0 % (0-6); Hematocrit 41.8 % (37.0-53.0); Hemoglobin 13.9 g/dL (13.5-17.5); IMMATURE GRAN ABSOLUTE AUTO 0.03 K/mm3 (0.00-0.10); IMMATURE GRAN PERCENT AUTO 0 % (0-1); LYMPHOCYTES ABSOLUTE AUTO 0.58 K/mm3 (0.84-5.20); LYMPHOCYTES PERCENT AUTO 6 % (21-46); MONOCYTES ABSOLUTE AUTO 0.23 K/mm3 (0.16-1.47); MONOCYTES PERCENT AUTO 2 % (4-13); Mean Corpuscular HGB 34.2 pg (26.0-34.0); Mean Corpuscular HGB Conc 33.3 g/dL (31.5-36.5); Mean Corpuscular Volume 103 fL (80-100); Mean Platelet Volume 10.4 fL (9.1-12.4); NEUTROPHILS ABSOLUTE AUTO 8.85 K/mm3 (1.96-9.15); NEUTROPHILS PERCENT AUTO 91 % (41-73); Platelet Count 210 K/mm3 (150-400); RDW Coefficient Variation 12.7 % (11.7-14.2); RDW Standard Deviation 48.5 fL (35.1-46.3); Red Blood Cell Count 4.07 M/mm3 (4.30-5.90)
[2022-10-27 05:19] LABS: Bun/Creatinine Ratio 21.9 (12.0-20.0); Calcium, Blood 8.9 mg/dL (8.5-10.1); Creatinine, Blood 0.68 mg/dL (0.60-1.20); Potassium, Blood 4.4 mmol/L (3.5-5.5)
[2022-10-27 08:23] VITALS: BP 123/81
--- NOTE | 2022-10-27 09:15 | NUR ---
REPORT GIVEN TO REDD MARTIN TO ASSUME CARE OF PT AT 0900
--- NOTE | 2022-10-27 11:33 | NUR ---
Patient is confused at times and yet still clear enough to be engaged in a conversation. He talks about feeling anxious at times because of being in the hospital. He tells me about his study of many religions and his belief about having God in his heart. He explains that he has a Bible where he lives but not one in the hospital and so I supply one for him. I provide anxiety, theological insights and prayer. Patient responded well and showed signs of reduced stress. I will continue to remain available to patient and family.
[2022-10-27 12:23] VITALS: BP 125/77
[2022-10-27 15:44] VITALS: BP 149/82
--- NOTE | 2022-10-27 18:15 | NUR ---
SHIFT SUMMARY PATIENT ALERT AND ORIENTED TO SELF. SOMEWHAT FORGETFUL, OCCASIONAL VISUAL HALLUCINATIONS, STATES HE SEES A MOUSE IN THE ROOM SOMETIMES. FREQUENTLY FORGETS HE IS IN THE HOSPITAL AND THINKS HE IS AT [facility]. REQUIRES 4L O2 VIA NC,, NEBS PER RT. EXPIRATORY WHEEZE. IV STEROIDS. IM INVEGA FOR SCHIZO BROUGHT FROM [facility] AND ADMINISTERED THIS SHIFT, SEE EMAR. INDEPENDENT IN ROOM. MEDICAL STATUS NO TELE. PLAN FOR TRANSFER TO SCU WHEN BED AVAILABLE AND DC BACK TO [facility] WHEN MEDICALLY STABLE. TOLERATING CARDIAC DIET AND LIQUIDS. VOIDING WELL. OBTAINED ORDER FOR NICOTINE PATCH, PLACED TO RIGHT SHOULDER.
[2022-10-27 19:32] VITALS: BP 139/86
[2022-10-28 04:39] VITALS: BP 121/70
--- NOTE | 2022-10-28 04:56 | NUR ---
ASSUMPTION OF CARE NO CHANGES TO NEURO OVERNIGHT. PATIENT CONTINUES TO ANSWER QUESTIONS APPROPRIATELY BUT IS FORGETFUL THAT HE IS IN THE HOSPITAL AT TIMES. ANXIETY MEDICATED PER EMAR DURING THE SHIFT. PATIENT WANDERED INTO AN EMPTY ROOM LAST NIGHT WHILE LOOKING FOR THE RESTROOM, EASILY REDIRECTABLE. ON CAMERA FOR SAFETY. PATIENT REMOVED O2 SEVERAL TIMES DURING THIS SHIFT. ON RA PATIENT'S SPO2 83-86%. ON 4L VIA NC WITH SPO2 >90%. WHEEZING HEARD T/O. PRN BREATHING TREATMENTS. CONTINUOUS SPO2 MONITORING. OTHER VITALS STABLE. BED IN LOWEST POSITION AND CALL LIGHT WITHIN REACH. THIS RN WILL CONTINUE TO MONITOR UNTIL SHIFT CHANGE AT 0700.
[2022-10-28 05:14] LABS: BASOPHILS ABSOLUTE AUTO 0.02 K/mm3 (0.00-0.23); BASOPHILS PERCENT AUTO 0 % (0-2); EOSINOPHILS PERCENT AUTO 0 % (0-6); Hematocrit 39.5 % (37.0-53.0); Hemoglobin 13.4 g/dL (13.5-17.5); IMMATURE GRAN ABSOLUTE AUTO 0.08 K/mm3 (0.00-0.10); IMMATURE GRAN PERCENT AUTO 1 % (0-1); LYMPHOCYTES ABSOLUTE AUTO 0.81 K/mm3 (0.84-5.20); LYMPHOCYTES PERCENT AUTO 7 % (21-46); MONOCYTES ABSOLUTE AUTO 0.48 K/mm3 (0.16-1.47); MONOCYTES PERCENT AUTO 4 % (4-13); Mean Corpuscular HGB 34.6 pg (26.0-34.0); Mean Corpuscular HGB Conc 33.9 g/dL (31.5-36.5); Mean Corpuscular Volume 102 fL (80-100); Mean Platelet Volume 10.2 fL (9.1-12.4); NEUTROPHILS ABSOLUTE AUTO 10.73 K/mm3 (1.96-9.15); NEUTROPHILS PERCENT AUTO 88 % (41-73); Platelet Count 221 K/mm3 (150-400); RDW Coefficient Variation 12.4 % (11.7-14.2); RDW Standard Deviation 46.7 fL (35.1-46.3); Red Blood Cell Count 3.87 M/mm3 (4.30-5.90); White Blood Cell Count 12.12 K/mm3 (4.00-11.30)
[2022-10-28 05:55] LABS: Bun/Creatinine Ratio 33.3 (12.0-20.0); Creatinine, Blood 0.69 mg/dL (0.60-1.20); Potassium, Blood 4.5 mmol/L (3.5-5.5)
[2022-10-28 08:41] VITALS: BP 131/86
--- NOTE | 2022-10-28 12:37 | NUR ---
MORNING SUMMARY 1240 ALERT AND ORIENTED TO SELF AND STAFF. FREQUENTLY FORGETFUL OF WHERE HE IS AND NAMES OF STAFF. SOMETIMES CONFUSED ABOUT DEVICES IN ROOM AND TREATMENTS. EASILY REDIRECTED AND COOPERATIVE WITH CARE. INDEPENDENT IN ROOM WITH OXYGEN AND SPO2 MONITOR. 2L VIA NC TO KEEP SATS ABOVE 88%. EXP WHEEZE SLOWLY IMPROVING WITH NEBS AND IV STEROID. SEROQUEL AND VALIUM SCHEDULED AND PRN IN EMAR. UPDATED NURSE AT [facility]. MEDICAL STATUS NO TELE, PATIENT WILL BE TRANSFERRED TO SURGICAL FLOOR ROOM 210 AFTER REPORT IS GIVEN TO NATURAL RESOURCE MANAGER. TOLERATING CARDIAC DIET AND LIQUIDS. VOIDING WELL. BM THIS SHIFT.
--- NOTE | 2022-10-28 14:21 | NUR ---
TRANSFER NOTE 1340 REPORT GIVEN TO ELI DE SOUZA RN ON SURGICAL FLOOR. TRANSFERRED PATIENT TO ROOM 210 AT 1345.
[2022-10-28 14:38] VITALS: BP 147/88
--- NOTE | 2022-10-28 15:02 | NUR ---
1345 to room 210 via wheelchair. pt pleasant, cooperative, denies any pain or sob. lungs with faint wheezes. cont biox in place.
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
--- NOTE | 2022-10-28 17:56 | NUR ---
pt ambulating independently in room. pt denies any sob. pt reports some hip pain which is normal for him. pleasant and cooperative. pt hoping to discharge to home tomorrow
[2022-10-28 19:41] VITALS: BP 139/79
--- NOTE | 2022-10-29 03:39 | NUR ---
O2 SATS: PT UP IN ROOM W/O2 REMOVED. O2 NOTED 83% ON RA. PT DENIED SOB, BUT APPEARED DYPSNEIC. 4LO2 NC REPLACED, IT TOOK PT APPX 5 MIN FOR SATS TO RETURN TO 90%. PT CALM BUT APPEARED CONFUSED DURING THIS TIME, WAS SEARCHING AROUND ROOM FOR "THE OTHER RADIO" ATTEMPTED TO REDIRECT PT, PT SETTLED BACK INTO BED W/4LO2 AND CONT OX MONITOR IN PLACE.
[2022-10-29 06:21] VITALS: BP 143/97
[2022-10-29 06:34] LABS: BASOPHILS ABSOLUTE AUTO 0.03 K/mm3 (0.00-0.23); BASOPHILS PERCENT AUTO 0 % (0-2); EOSINOPHILS PERCENT AUTO 0 % (0-6); Hematocrit 41.6 % (37.0-53.0); Hemoglobin 14.2 g/dL (13.5-17.5); IMMATURE GRAN ABSOLUTE AUTO 0.16 K/mm3 (0.00-0.10); IMMATURE GRAN PERCENT AUTO 2 % (0-1); LYMPHOCYTES ABSOLUTE AUTO 0.74 K/mm3 (0.84-5.20); LYMPHOCYTES PERCENT AUTO 7 % (21-46); MONOCYTES ABSOLUTE AUTO 0.71 K/mm3 (0.16-1.47); MONOCYTES PERCENT AUTO 7 % (4-13); Mean Corpuscular HGB Conc 34.1 g/dL (31.5-36.5); Mean Corpuscular Volume 103 fL (80-100); Mean Platelet Volume 10.2 fL (9.1-12.4); NEUTROPHILS ABSOLUTE AUTO 8.72 K/mm3 (1.96-9.15); NEUTROPHILS PERCENT AUTO 84 % (41-73); Platelet Count 231 K/mm3 (150-400); RDW Coefficient Variation 12.6 % (11.7-14.2); RDW Standard Deviation 47.3 fL (35.1-46.3); Red Blood Cell Count 4.06 M/mm3 (4.30-5.90); White Blood Cell Count 10.36 K/mm3 (4.00-11.30)
--- NOTE | 2022-10-29 06:38 | NUR ---
SATS >90% ON 2LO2 NC THIS AM. SATS NOTED TO DROP TO MID 80'S ON RA, TOOK SEVERAL MINUTED TO RECOVER (SEE PREV NOTE). LUNGS WHEEZY T/O, PT REMAINS SOB W/EXERTION. PT DECLINED NEED FOR RT TX THIS AM, REP "THAT INHALER MAKES MY THROAT SORE" PT AMB INDEP IN ROOM, DOES BECOME SOB W/EXERTION. PT AWOKE CONFUSED EARLY THIS AM, IS MORE CLEAR THIS AM; A/O X3. PLAN TO TITRATE O2 AND AWAIT DC PLANNING.
[2022-10-29 07:04] VITALS: BP 143/88
[2022-10-29 07:06] LABS: Anion Gap Unable to Calculate mmol/L (6-16); Blood Urea Nitrogen 21 mg/dL (8-24); Bun/Creatinine Ratio 26.2 (12.0-20.0); CO2, Blood 34 mmol/L (21-32); Calcium, Blood 9.2 mg/dL (8.5-10.1); Chloride, Blood 102 mmol/L (98-108); Glomerular Filtration Rate 100 (60-); Glucose, Blood 173 mg/dL (70-99); Potassium, Blood 4.4 mmol/L (3.5-5.5); Sodium, Blood 135 mmol/L (136-145)
[2022-10-29 14:25] VITALS: BP 160/92
--- NOTE | 2022-10-29 15:13 | NUR ---
REEVALUATED PATIENT'S PAIN AFTER TYLENOL AND PAIN INCREASED TO AN 8 IN HIS RIGHT HIP. OFFERED ICE/HEAT, AND REPOSITIONING. PT OPTED FOR HEAT VIA WARM BLANKET. PT REPORTED IBUPROFEN WORKING WELL AT HOME. GAVE PRN IBUPROFEN PER ORDERS.
--- NOTE | 2022-10-29 17:04 | NUR ---
PT REPORTS HIS BREATHING IS GETTING BETTER EACH DAY AND THAT HE REALLY WANTS TO DISCHARGE HOME TOMORROW. OXYGEN AT 3 LITERS TO MAINTAIN BIOX GREATER THAN 92%. PT REPORTS SOME HIP PAIN WHICH WAS CONTROLLED WITH ADVIL. PT PLEASANT, COOPERATIVE. SLIGHTLY FORGETFUL AND PATIENT TELLS ME HE HAS SOME DEMENTIA
[2022-10-29 19:43] VITALS: BP 137/83
[2022-10-30 05:01] VITALS: BP 122/77
--- NOTE | 2022-10-30 05:30 | NUR ---
SHIFT SUMMARY PT ALERT AND COOPERATIVE WITH CARE FEW MOMENTS OF CONFUSION, BUT EASILY REORIENTABLE. NO ACUTE CHANGES, VSS. PT REMAINS ON 3L NC TO MAINTAIN SATS, BIOX AT BEDSIDE. CALL LIGHT WITHIN REACH.
[2022-10-30 07:31] VITALS: BP 140/94
--- NOTE | 2022-10-30 11:51 | NUR ---
O2 REMOVED AT [address] GALO. PT TOLERATED RA FOR A SHORT TIME AND PLACED O2 BACK ON AT AN UNKNOWN TIME BECAUSE HE FELT SHORT OF BREATH. O2 REMOVED AT 0915 BY THIS RN SINCE PT WAS MAINTAINING O2 >90% ON 2L O2 VIA NC. LETTY RT CAME TO COMPLETE HOME O2 EVAL AND PLACED O2 BACK ON. THIS RN OBSERVED PT'S O2 DROP TO 87% WHILE ON RA.
--- NOTE | 2022-10-30 11:57 | NUR ---
DR. GALO WAS NOTIFID DURING AM ROUNDS OF INCREASED CO2 OF 34 AND ELEVATED BLOOD GLUCOSE LEVEL AT 173. NO CHANGES TO ORDERS AT THIS TIME.
--- NOTE | 2022-10-30 13:45 | NUR ---
[facility] TO ROOM AT APPROXIMATELY 13:30 FOR HOME O2. PT WAS EDUCATED ON USE OF MACHINE. [facility] REPORTS THAT HE IS HEADING TO [facility] TO DELIVER SUPPLIES.
[2022-10-30] MEDS ORDERED: PRED20 PO (14:47)
[2022-10-30 14:56] VITALS: BP 133/82
--- NOTE | 2022-10-30 16:02 | NUR ---
DISCHARGE PT DISCHARGED WITH [facility] AT 1602. AT TIME OF DISCHARGE PT WAS ALERT AND ORIENTED BUT FORGETFUL OF INSTRUCTIONS; UNCHANGED FROM BASELINE. VSS PRIOR TO DISCHARGE. PT ASSISTED TO USE O2 FROM TAKE PROVIDED BY [facility]. PT PLACED ON 4L O2 VIA NC FOR TRANSPORT. PT STATED HE COULD FEEL O2 FLOW WHEN BREATHING IN AND THE FLOW OF O2 THROUGH NC COULD BE HEARD WHEN PT INHALED. PACKET FOR DISCHARGE SENT WITH PATIENT. WRITTEN INSTRUCTIONS PROVIDED. REPORT GIVEN TO CASIE PATRICIO FROM [facility] NOTIFIED OF PLANNED TIME OF DISCHARGE PRIOR TO PT DISCHARGING.
== END 2022-10-30 16:02 | disposition home or self-care (01) | DRG 189 ==
LOC: ER 10:13 → PCU 14:11 → SURS 10-28 13:45
PROVIDERS: Family Medicine; Student in an Organized Health Care Education/Training Program; ADMIT Hospitalist
DX: J96.01 Acute respiratory failure with hypoxia (principal); J44.1 Chronic obstructive pulmonary disease with (acute) exacerbation; Z20.822 Contact with and (suspected) exposure to COVID-19; I10 Essential (primary) hypertension; F20.9 Schizophrenia, unspecified; F32.A Depression, unspecified; F17.210 Nicotine dependence, cigarettes, uncomplicated; E78.5 Hyperlipidemia, unspecified; G30.9 Alzheimer's disease, unspecified; F02.80 Dementia in other diseases classified elsewhere, unspecified severity, without behavioral disturbance, psychotic disturbance, mood disturbance, and anxiety; D72.828 Other elevated white blood cell count; T38.0X5A Adverse effect of glucocorticoids and synthetic analogues, initial encounter; Z98.890 Other specified postprocedural states; Z88.0 Allergy status to penicillin; Z88.8 Allergy status to other drugs, medicaments and biological substances; Z79.82 Long term (current) use of aspirin; Z79.52 Long term (current) use of systemic steroids; Z79.899 Other long term (current) drug therapy
CPT/HCPCS: 0241U; 36415; 71045; 80048; 82803; 85025; 93005; 93010; 94640; 94644; 94664; 94760; 94761; 94762; 96374; 99285-25; A9270; J0456; J0696; J1650; J2930; J7050

== ENCOUNTER 2022-12-08 17:08 | Inpatient (IN) | payer OTHER ==
[~2022-12-08 17:08] MED LIST changes: +BRINTELLIX10 MG PO; +DULCOLAX400 MG/5 M PO; +MECL25 PO; +NYSTRIT; +PALI6TA PO; +QUET100 PO; +SPIRIVA RESPIMAT4 G3 INH; -SPIRIVA RESPIMAT4 GM INH; +Seroquel Xr50 MG PO
[2022-12-08] MEDS ORDERED: NICO21TP TOP (18:03)
[2022-12-08 18:50] LABS: BASOPHILS ABSOLUTE AUTO 0.03 K/mm3 (0.00-0.23); BASOPHILS PERCENT AUTO 0 % (0-2); EOSINOPHILS ABSOLUTE AUTO 0.17 K/mm3 (0.00-0.68); EOSINOPHILS PERCENT AUTO 2 % (0-6); Hematocrit 39.9 % (37.0-53.0); Hemoglobin 13.3 g/dL (13.5-17.5); IMMATURE GRAN ABSOLUTE AUTO 0.05 K/mm3 (0.00-0.10); IMMATURE GRAN PERCENT AUTO 1 % (0-1); LYMPHOCYTES PERCENT AUTO 22 % (21-46); MONOCYTES ABSOLUTE AUTO 1.16 K/mm3 (0.16-1.47); MONOCYTES PERCENT AUTO 12 % (4-13); Mean Corpuscular HGB 34.3 pg (26.0-34.0); Mean Corpuscular HGB Conc 33.3 g/dL (31.5-36.5); Mean Corpuscular Volume 103 fL (80-100); Mean Platelet Volume 9.8 fL (9.1-12.4); NEUTROPHILS ABSOLUTE AUTO 6.16 K/mm3 (1.96-9.15); NEUTROPHILS PERCENT AUTO 64 % (41-73); Platelet Count 227 K/mm3 (150-400); RDW Coefficient Variation 13.2 % (11.7-14.2); RDW Standard Deviation 49.4 fL (35.1-46.3); Red Blood Cell Count 3.88 M/mm3 (4.30-5.90); White Blood Cell Count 9.67 K/mm3 (4.00-11.30)
[2022-12-08 18:58] LABS: Base Excess Venous 2.9 mmol/L; Bicarbonate Venous 25.4 mmol/L (24.0-30.0); PCO2 Venous 66.7 mmHg (38-42); pH Blood Venous 7.26 (7.34-7.37)
[2022-12-08 19:13] LABS: Albumin, Blood 3.6 g/dL (3.4-5.0); Albumin/Globulin Ratio 1.4 (0.8-1.8); Bilirubin, Total 0.2 mg/dL (0.1-1.0); Bun/Creatinine Ratio 4.8 (12.0-20.0); Calcium, Blood 8.4 mg/dL (8.5-10.1); Creatinine, Blood 0.83 mg/dL (0.60-1.20); Globulin, Blood 2.6 g/dL (2.2-4.0); Potassium, Blood 3.7 mmol/L (3.5-5.5); Total Protein, Blood 6.2 g/dL (6.4-8.2)
[2022-12-08 19:58] LABS: Influenza A, PCR NEGATIVE (NEGATIVE); Influenza B, PCR NEGATIVE (NEGATIVE); Resp Syncytial Virus, PCR NEGATIVE (NEGATIVE); SARS-Cov-2 (COVID-19) PCR, MMC NEGATIVE (NEGATIVE)
[2022-12-08 20:47] LABS: Base Excess Venous 3.4 mmol/L; Bicarbonate Venous 25.9 mmol/L (24.0-30.0); PCO2 Venous 61.9 mmHg (38-42); pH Blood Venous 7.29 (7.34-7.37)
[2022-12-08] MEDS ORDERED: FLUT1DIS5 INH (21:09)
[2022-12-08 22:25] VITALS: BP 157/92
[2022-12-09 03:15] VITALS: BP 128/85
--- NOTE | 2022-12-09 04:25 | NUR ---
PT TRANSFER FROM RM 312. I ASSUMED CARE AT 0455. PT HAS BELONGINGS IN PT BAG AND WALLET LOCKED IN RX BOX. PT TRANSFERRED VIA WC AND INDEPENDENTLY GOT INTO BED. PT IS ON O2 5L/NC WITH CONTINUOUS BIOX. IV ACCESS IN RFA. PT IS CURRENTLY RESTING WITH BED IN LOWEST POSITION, AND CALL LIGHT WITHIN REACH.
[2022-12-09 07:36] VITALS: BP 145/87
[2022-12-09 10:13] LABS: BASOPHILS ABSOLUTE AUTO 0.01 K/mm3 (0.00-0.23); BASOPHILS PERCENT AUTO 0 % (0-2); EOSINOPHILS PERCENT AUTO 0 % (0-6); Hematocrit 41.3 % (37.0-53.0); Hemoglobin 13.8 g/dL (13.5-17.5); IMMATURE GRAN ABSOLUTE AUTO 0.04 K/mm3 (0.00-0.10); IMMATURE GRAN PERCENT AUTO 0 % (0-1); LYMPHOCYTES ABSOLUTE AUTO 0.41 K/mm3 (0.84-5.20); LYMPHOCYTES PERCENT AUTO 5 % (21-46); MONOCYTES PERCENT AUTO 1 % (4-13); Mean Corpuscular HGB 33.8 pg (26.0-34.0); Mean Corpuscular HGB Conc 33.4 g/dL (31.5-36.5); Mean Corpuscular Volume 101 fL (80-100); Mean Platelet Volume 10.1 fL (9.1-12.4); NEUTROPHILS ABSOLUTE AUTO 8.57 K/mm3 (1.96-9.15); NEUTROPHILS PERCENT AUTO 94 % (41-73); Platelet Count 242 K/mm3 (150-400); RDW Coefficient Variation 13.1 % (11.7-14.2); RDW Standard Deviation 48.9 fL (35.1-46.3); Red Blood Cell Count 4.08 M/mm3 (4.30-5.90); White Blood Cell Count 9.13 K/mm3 (4.00-11.30)
[2022-12-09 11:06] LABS: Albumin, Blood 3.8 g/dL (3.4-5.0); Albumin/Globulin Ratio 1.4 (0.8-1.8); Bilirubin, Total 0.4 mg/dL (0.1-1.0); Calcium, Blood 9.2 mg/dL (8.5-10.1); Creatinine, Blood 0.67 mg/dL (0.60-1.20); Globulin, Blood 2.8 g/dL (2.2-4.0); Potassium, Blood 4.2 mmol/L (3.5-5.5); Total Protein, Blood 6.6 g/dL (6.4-8.2)
[2022-12-09 11:36] LABS: BAND PERCENT MAN 1 % (0-8); BASOPHILS PERCENT MAN 0 % (0-2); EOSINOPHILS PERCENT MAN 0 % (0-6); LYMPHOCYTES ABSOLUTE MAN 0.09 K/mm3 (0.84-5.20); LYMPHOCYTES PERCENT MAN 1 % (21-46); MONOCYTES ABSOLUTE MAN 0.09 K/mm3 (0.16-1.47); MONOCYTES PERCENT MAN 1 % (4-13); NEUTROPHILS ABSOLUTE MAN 8.94 K/mm3 (1.96-9.15); SEG NEUTROPHILS PERCENT MAN 97 % (41-73); TOTAL CELLS COUNTED 100
[2022-12-09 15:02] VITALS: BP 161/84
--- NOTE | 2022-12-09 18:56 | NUR ---
SHIFT SUMMARY- PT IS ALERT, PLESANT AND COOPERATIVE. HE FREQUENTLY REMOVES HIS OXYGEN AND MOVES THE LINES. EDUCATED ABOUT THE IMPORTANCE OF LEAVING HIS O2 ON. HIS GUARDIAN CAME IN THIS SHIFT. HE IS CURRENTLY IN THE CHAIR CALL LIGHT IS WITHIN REACH.
--- NOTE | 2022-12-10 03:36 | NUR ---
SHIFT SUMMARY NOC PT A/O 2-3. VERY FORGETFUL, BUT REDIRECTS EASILY. PT KEPT PULLING O2/SPO2 PROBE OFF DURING BEGINNING OF SHIFT AND DESATS INTO LOW 80'S QUICKLY AND TAKES A FEW MINUTES TO RECOVER. PT STILL ON 5L/NC AND MAINTAINING SPO2 >90% WHEN O2 IS LEFT IN PLACE. AFTER PT TOOK BEDTIME DOSES OF SEROQUEL/VALIUM PT ANXIETY AND AGITATION SUBSIDED AND PT WAS ABLE TO SLEEP WELL. HAVE BEEN CHECKING ON PT EVERY 30 MINUTES OR SO TO ENSURE THAT PT HAS NOT PULLED OFF O2 OR PROBE. PT STATES THAT THEY STILL WANT TO LEAVE TODAY. PT IS CURRENTLY RESTING RECEIVING A BREATHING TREATMENT FROM RT WITH BED IN LOWEST POSITION, AND CALL LIGHT WITHIN REACH.
[2022-12-10 05:47] LABS: BASOPHILS ABSOLUTE AUTO 0.03 K/mm3 (0.00-0.23); BASOPHILS PERCENT AUTO 0 % (0-2); EOSINOPHILS PERCENT AUTO 0 % (0-6); Hematocrit 40.8 % (37.0-53.0); Hemoglobin 13.8 g/dL (13.5-17.5); IMMATURE GRAN ABSOLUTE AUTO 0.13 K/mm3 (0.00-0.10); IMMATURE GRAN PERCENT AUTO 1 % (0-1); LYMPHOCYTES ABSOLUTE AUTO 1.15 K/mm3 (0.84-5.20); LYMPHOCYTES PERCENT AUTO 8 % (21-46); MONOCYTES PERCENT AUTO 10 % (4-13); Mean Corpuscular HGB 34.6 pg (26.0-34.0); Mean Corpuscular HGB Conc 33.8 g/dL (31.5-36.5); Mean Corpuscular Volume 102 fL (80-100); Mean Platelet Volume 10.4 fL (9.1-12.4); NEUTROPHILS ABSOLUTE AUTO 12.55 K/mm3 (1.96-9.15); NEUTROPHILS PERCENT AUTO 82 % (41-73); Platelet Count 264 K/mm3 (150-400); RDW Coefficient Variation 13.2 % (11.7-14.2); RDW Standard Deviation 49.8 fL (35.1-46.3); Red Blood Cell Count 3.99 M/mm3 (4.30-5.90); White Blood Cell Count 15.36 K/mm3 (4.00-11.30)
[2022-12-10 06:22] LABS: Bun/Creatinine Ratio 26.2 (12.0-20.0); Calcium, Blood 9.3 mg/dL (8.5-10.1); Creatinine, Blood 0.76 mg/dL (0.60-1.20); Potassium, Blood 4.3 mmol/L (3.5-5.5)
[2022-12-10 08:10] VITALS: BP 112/84
--- NOTE | 2022-12-10 09:47 | NUR ---
PATIENT BECOMING VERY AGITATED TO LEAVE HOSPITAL, DR SPARKS AND [employer] REPAIRER AWARE, RT AND CASE MANAGEMENT STILL NEED TO CLARIFY OXYGEN NEEDS AT [facility] AND PATIENT NOT WANTING TO WAIT, ROMEL PAPERWORK ON FRONT OF CHART
[2022-12-10] MEDS ORDERED: Prednisone10 MG PO (10:22)
[2022-12-10] MEDS ORDERED: DILT60ER PO (10:24)
--- NOTE | 2022-12-10 12:46 | NUR ---
PATIENT DISCHARGE HOME VIA W/C AMBULANCE, PACKET GIVEN TO TRANSPORTER FOR [facility], PATIENT DENIED SOB, CP, OR NAUSEA. PATIENT WAS EAGER TO GO HOME
== END 2022-12-10 13:31 | disposition home or self-care (01) | DRG 189 ==
LOC: ER 17:08 → MEDS 22:10 → ENPENDDIS 12-10 09:40 → MEDS 12-10 13:31
PROVIDERS: Emergency Medicine; Internal Medicine; Nurse Practitioner Acute Care; ADMIT Internal Medicine
DX: J96.21 Acute and chronic respiratory failure with hypoxia (principal); J44.1 Chronic obstructive pulmonary disease with (acute) exacerbation; F02.818 Dementia in other diseases classified elsewhere, unspecified severity, with other behavioral disturbance; G30.9 Alzheimer's disease, unspecified; J96.02 Acute respiratory failure with hypercapnia; I10 Essential (primary) hypertension; F32.A Depression, unspecified; F17.210 Nicotine dependence, cigarettes, uncomplicated; F20.9 Schizophrenia, unspecified; N40.0 Benign prostatic hyperplasia without lower urinary tract symptoms; Z20.822 Contact with and (suspected) exposure to COVID-19; Z79.82 Long term (current) use of aspirin; Z79.51 Long term (current) use of inhaled steroids; Z79.899 Other long term (current) drug therapy; Z98.890 Other specified postprocedural states; Z96.641 Presence of right artificial hip joint; Z87.81 Personal history of (healed) traumatic fracture; Z88.8 Allergy status to other drugs, medicaments and biological substances; Z88.0 Allergy status to penicillin; Z99.81 Dependence on supplemental oxygen
CPT/HCPCS: 0241U; 36415; 71045; 80048; 80053; 82803; 83880; 84484; 85025; 93005; 93010; 94640; 94644; 94664; 94760; 94762; 96365; 96375; 99285-25; A9270; J0696; J1650; J2930; J3475; J7512

== ENCOUNTER 2023-03-09 12:07 | Emergency (ER) | payer OTHER ==
[~2023-03-09] VITALS: Ht 175.3 cm; Wt 90.7 kg
[~2023-03-09 12:07] MED LIST changes: +DILT60ER PO; +FLUT1DIS5 INH; +NICO21TP TOP; +Prednisone10 MG PO
[2023-03-09 16:58] VITALS: BP 147/102
== END 2023-03-09 16:59 | disposition home or self-care (01) ==
LOC: ER 12:07
DX: S80.01XA Contusion of right knee, initial encounter (principal); S90.31XA Contusion of right foot, initial encounter; S30.0XXA Contusion of lower back and pelvis, initial encounter; W17.89XA Other fall from one level to another, initial encounter; F17.200 Nicotine dependence, unspecified, uncomplicated; J44.9 Chronic obstructive pulmonary disease, unspecified; I10 Essential (primary) hypertension; Z88.0 Allergy status to penicillin; Z88.8 Allergy status to other drugs, medicaments and biological substances; Z79.51 Long term (current) use of inhaled steroids; Z79.82 Long term (current) use of aspirin; Z79.899 Other long term (current) drug therapy
CPT/HCPCS: 73562-RT; 73630; 99285-25

== ENCOUNTER 2023-04-10 06:13 | Inpatient (IN) | payer OTHER ==
[~2023-04-10] VITALS: Ht 177.8 cm; Wt 78.3 kg
[2023-04-10] VITALS (40 sets, daily range): BP systolic 90–152; BP diastolic 55–140
[2023-04-10 06:40] LABS: BASOPHILS ABSOLUTE AUTO 0.01 K/mm3 (0.00-0.23); BASOPHILS PERCENT AUTO 0 % (0-2); EOSINOPHILS ABSOLUTE AUTO 0.17 K/mm3 (0.00-0.68); EOSINOPHILS PERCENT AUTO 2 % (0-6); Hematocrit 39.5 % (37.0-53.0); Hemoglobin 13.1 g/dL (13.5-17.5); IMMATURE GRAN ABSOLUTE AUTO 0.03 K/mm3 (0.00-0.10); IMMATURE GRAN PERCENT AUTO 0 % (0-1); LYMPHOCYTES ABSOLUTE AUTO 0.72 K/mm3 (0.84-5.20); LYMPHOCYTES PERCENT AUTO 8 % (21-46); MONOCYTES ABSOLUTE AUTO 0.66 K/mm3 (0.16-1.47); MONOCYTES PERCENT AUTO 8 % (4-13); Mean Corpuscular HGB Conc 33.2 g/dL (31.5-36.5); Mean Corpuscular Volume 103 fL (80-100); Mean Platelet Volume 9.9 fL (9.1-12.4); NEUTROPHILS ABSOLUTE AUTO 7.16 K/mm3 (1.96-9.15); NEUTROPHILS PERCENT AUTO 82 % (41-73); Platelet Count 199 K/mm3 (150-400); RDW Coefficient Variation 13.1 % (11.7-14.2); Red Blood Cell Count 3.85 M/mm3 (4.30-5.90); White Blood Cell Count 8.75 K/mm3 (4.00-11.30)
[2023-04-10 06:53] LABS: Albumin, Blood 3.5 g/dL (3.4-5.0); Albumin/Globulin Ratio 1.5 (0.8-1.8); Bilirubin, Total 0.3 mg/dL (0.1-1.0); Bun/Creatinine Ratio 5.6 (12.0-20.0); Calcium, Blood 8.3 mg/dL (8.5-10.1); Creatinine, Blood 0.89 mg/dL (0.60-1.20); Globulin, Blood 2.3 g/dL (2.2-4.0); Magnesium, Blood 2.3 mg/dL (1.6-2.4); Potassium, Blood 3.9 mmol/L (3.5-5.5); Total Protein, Blood 5.8 g/dL (6.4-8.2)
[2023-04-10 06:53] LABS: Source, Urine Straight Cath
[2023-04-10 07:01] LABS: Bicarbonate Venous 26.9 mmol/L (24.0-30.0); pH Blood Venous 7.26 (7.34-7.37)
[2023-04-10] MEDS ORDERED: BISA10S PR (07:07)
[2023-04-10] MEDS ORDERED: Milk Of Ma400 MG/5 M PO (07:08)
[2023-04-10] MEDS ORDERED: NYSTRIT (07:08)
[2023-04-10] MEDS ORDERED: 1/2 NS 250ml250 ML (07:08)
[2023-04-10 07:36] LABS: Appearance, Urine Clear (Clear); Bilirubin, Urine Neg (Neg); Blood, Urine Neg (Neg); Color, Urine Yellow (P-Yellow); Glucose Qualitative, Urine Neg (Neg); Ketones, Urine Neg (Neg); Leukocyte Esterase, Urine Neg (Neg); Nitrite, Urine Neg (Neg); Protein, Urine 1+ (Neg); Urobilinogen, Urine NORM (Normal); pH, Urine 6.5 (5.0-8.0)
[2023-04-10 08:00] LABS: Adenovirus Not Detected (NOT DETECT); Bordetella pertussis Not Detected (NOT DETECT); Chlamydophila pneumoniae Not Detected (NOT DETECT); Coronavirus 229E Not Detected (NOT DETECT); Coronavirus HKU1 Not Detected (NOT DETECT); Coronavirus NL63 Not Detected (NOT DETECT); Coronavirus OC43 Not Detected (NOT DETECT); Human Metapneumovirus Not Detected (NOT DETECT); Human Rhinovirus/Enterovirus Detected (NOT DETECT); Influenza A/2009-H1 Not Detected (NOT DETECT); Influenza A/H1 Not Detected (NOT DETECT); Influenza A/H3 Not Detected (NOT DETECT); Influenza B Not Detected (NOT DETECT); Mycoplasma pneumoniae Not Detected (NOT DETECT); Parainfluenza Virus 1 Not Detected (NOT DETECT); Parainfluenza Virus 2 Not Detected (NOT DETECT); Parainfluenza Virus 3 Not Detected (NOT DETECT); Parainfluenza Virus 4 Not Detected (NOT DETECT); Respiratory Syncytial Virus Not Detected (NOT DETECT); SARS-Cov-2 (COVID-19), BioFire Not Detected (NOT DETECT)
[2023-04-10 08:12] LABS: Base Excess Venous 4.9 mmol/L; Bicarbonate Venous 26.3 mmol/L (24.0-30.0); PCO2 Venous 77.6 mmHg (38-42); pH Blood Venous 7.23 (7.34-7.37)
[2023-04-10 10:48] LABS: PCO2 Arterial 82 mmHg (35-45); PO2 Arterial 85.5 mmHg (80-100); pH Blood Arterial 7.21 (7.35-7.45)
[2023-04-10 13:59] LABS: Base Excess Venous 3.2 mmol/L; Bicarbonate Venous 26.2 mmol/L (24.0-30.0); PCO2 Venous 52.4 mmHg (38-42); pH Blood Venous 7.35 (7.34-7.37)
--- NOTE | 2023-04-10 15:30 | NUR ---
WASTED VERSED AND FENTANYL 177ML FENTANYL AND 67ML VERSED WASTED WITH REDD WHITMAN
[2023-04-10] MEDS ORDERED: ALBU2.5V5 INH (15:58)
[2023-04-10] MEDS ORDERED: ANORO ELLIPTA1 EACH INH (16:07)
[2023-04-10] MEDS ORDERED: IBU800 M1 PO (16:08)
[2023-04-10] MEDS ORDERED: PALI3TAB PO (16:09)
--- NOTE | 2023-04-10 17:19 | NUR ---
SHIFT SUMMARY PATIENT REMAINS INTUBATED AND SEDATED ON PROPOFOL @ 30MCG/KG/MIN. WITHDRAWS FROM PAIN AND COUGHS. NO GAG OR SWALLOW. DOES NOT OPEN EYES. TEMP 95.6F TEMPORAL AT LOWEST. WARM BLANKETS APPLIED TO PATIENT, ROOM TEMP ADJUSTED HIGHER, AND DOOR CLOSED TO KEEP HEAT IN. LUNG SOUNDS ARE STILL WHEEZING IN THE BUL. CLEAR IN THE MIDDLE AND LOWER LOBES. SPO2 LOW TO MIGH 90'S. LARGE AMOUNTS OF BLOODY ORAL SECRETIONS WITH ORAL CARE. WHITE/RED SPUTUM FROM ETT. HYPOACTIVE BT AND NGT CLAMPED. NO BM THIS SHIFT. 675 ML URINE OUT OF SHAHID. FAMILY AND GUARDIAN UPDATED ON PATIENT STATUS TODAY. ADMISSION COMPLETE.
--- NOTE | 2023-04-10 19:15 | NUR ---
ASSUMED CARE OF PT AT 1915 BEDSIDE REPORT RECEIVED FROM REDD MENDOZA. PT IS SEDATED, ON PROPOFOL, WITHDRAWS FROM PAIN. SR, BP WNL. VENT AC/VC+ 20/480/8/50%, LUNGS WITH WHEEZING THROUGHOUT/DIM BASES. MODERATE TO LARGE AMOUNT OF BLOODY ORAL SECRETIONS. ETT 8.0/24 @ LIP. NO DENTURES IN PLACE. OGT CLAMPED. TEMP PROBE SHAHID, NOT ABLE TO GET TEMP TO READ ACCURATELY, TEMPORAL TEMPERATURES TAKEN. UO ADEQUATE. SKIN INTACT. SMALL AREA OF REDNESS (IMPROVING) FROM WALKING BOOT NOTED ON ADMIT, SKIN NOT OPEN. MEPILEX PLACED ON COCCYX TO PREVENT AREAS OF PRESSURE. TURNED EVERY 2 HOURS TO MAINTAIN SKIN INTEGRITY AND FOR COMFORT. PIV X2, RIGHT FA (SL) AND LEFT AC WITH PROPOFOL INFUSING. BOTH FLUSH WELL AND WITHDRAW BLOOD. NO FAMILY AT BEDSIDE, PT HAS GUARDIAN GUILHERME ADDISON, UPDATE PROVIDED ON PREVIOUS SHIFT. DAUGHTER DIDI ALSO UPDATED BY PREVIOUS SHIFT RN.
[2023-04-11] VITALS (46 sets, daily range): BP systolic 97–148; BP diastolic 58–105
[2023-04-11 03:02] LABS: BASOPHILS ABSOLUTE AUTO 0.01 K/mm3 (0.00-0.23); BASOPHILS PERCENT AUTO 0 % (0-2); EOSINOPHILS PERCENT AUTO 0 % (0-6); Hematocrit 41.7 % (37.0-53.0); IMMATURE GRAN ABSOLUTE AUTO 0.03 K/mm3 (0.00-0.10); IMMATURE GRAN PERCENT AUTO 0 % (0-1); LYMPHOCYTES PERCENT AUTO 7 % (21-46); MONOCYTES PERCENT AUTO 3 % (4-13); Mean Corpuscular HGB 34.1 pg (26.0-34.0); Mean Corpuscular HGB Conc 33.6 g/dL (31.5-36.5); Mean Corpuscular Volume 102 fL (80-100); Mean Platelet Volume 10.2 fL (9.1-12.4); NEUTROPHILS ABSOLUTE AUTO 6.79 K/mm3 (1.96-9.15); NEUTROPHILS PERCENT AUTO 90 % (41-73); Platelet Count 194 K/mm3 (150-400); RDW Coefficient Variation 12.9 % (11.7-14.2); RDW Standard Deviation 47.7 fL (35.1-46.3); Red Blood Cell Count 4.11 M/mm3 (4.30-5.90); White Blood Cell Count 7.53 K/mm3 (4.00-11.30)
[2023-04-11 03:20] LABS: Albumin, Blood 3.3 g/dL (3.4-5.0); Albumin/Globulin Ratio 1.2 (0.8-1.8); Bilirubin, Total 0.3 mg/dL (0.1-1.0); Bun/Creatinine Ratio 16.8 (12.0-20.0); Calcium, Blood 8.2 mg/dL (8.5-10.1); Creatinine, Blood 0.95 mg/dL (0.60-1.20); Globulin, Blood 2.7 g/dL (2.2-4.0); Magnesium, Blood 2.1 mg/dL (1.6-2.4); Potassium, Blood 3.9 mmol/L (3.5-5.5)
[2023-04-11 04:06] LABS: PCO2 Arterial 49.9 mmHg (35-45); PO2 Arterial 60.7 mmHg (80-100); pH Blood Arterial 7.38 (7.35-7.45)
--- NOTE | 2023-04-11 06:07 | NUR ---
SHIFT SUMMARY PT REMAINS SEDATED, RASS -2, COUGHING BUT TOLERATING VENT, LOCALIZES TO PAIN. SR 70'S-80'S AT REST, BP WNL. LUNGS WITH WHEEZING THROUGHOUT, DIMISHED BASES, PERIODS OF LITTLE AIR MOVEMENT, CONSISTENT WITH BRONCHOSPASMS. BLOOD TINGED ORAL SECRETIONS, MINIMAL BUT THICK ETT SECRETIONS. OGT CLAMPED, BS HYPOACTIVE. BM SMEAR CLEANED. SHAHID PATENT AND DRAINING CLEAR YELLOW URINE. SKIN INTACT. PREVENTATIVE MEPILEX TO COCCYX. PIV X2, PROPOFOL INFUSING, BOTH PIV FLUSH WELL AND WITHDRAW BLOOD. AM ABG SHOWED PCO2 OF 50 WITH NORMAL PH. NO FAMILY AT BEDSIDE, NO CALLS FROM FAMILY OR GUARDIAN FOR UPDATE. WENT THROUGH CLOTHING IN ROOM PT IS A SMOKER. NO IGNITION SOURCES PRESENT IN BELONGINGS. PT SEDATED AND INTUBATED, NO RISK FOR HARM DUE TO IGNITION SOURCES. NO FAMILY PRESENT TO EDUCATE. HOURLY ROUNDING COMPLETED.
--- NOTE | 2023-04-11 19:26 | NUR ---
SHIFT SUMMARY PATIENT REMAINED ON SPONTANEOUS T/O SHIFT WITH PROPOFOL @ 5MCG/KG/MIN. PATIENT NODS HEAD YES/NO TO SIMPLE QUESTIONS. MOVES ALL EXTREMITIES IN BED. VSS. GOOD URINE OUTPUT FROM SHAHID. NO BM THIS SHIFT. HOME MEDS RESTARTED. NO OTHER CHANGES THIS SHIFT.
[2023-04-12] VITALS (46 sets, daily range): BP systolic 99–138; BP diastolic 52–75
[2023-04-12 04:09] LABS: Bun/Creatinine Ratio 43.9 (12.0-20.0); Calcium, Blood 8.3 mg/dL (8.5-10.1); Creatinine, Blood 0.87 mg/dL (0.60-1.20); Phosphorus, Blood 3.4 mg/dL (2.5-4.9); Potassium, Blood 4.1 mmol/L (3.5-5.5)
--- NOTE | 2023-04-12 05:47 | NUR ---
SHIFT SUMMARY PT REMAINS LIGHTLY SEDATED. FOLLOWS COMMANDS AND NODS HEAD APPROPRIATELY. SR 70-90. FREQUENT PAC'S AT TIMES. BP WNL. SPONTANEOUS VENT SETTINGS MAINTAINED THROUGH THE NIGHT, FIO2 AT 45%, PT TOLERATED WELL. TF STARTED ORDERED. MEDS GIVEN PER TUBE. SHAHID IN PLACE PATENT AND DRAINING CLEAR YELLOW URINE. SKIN INTACT. TURNED EVERY 2 HOURS AND NEEDED TO MAINTAIN SKIN INTEGRITY AND COMFORT. NO FAMILY AT BEDSIDE. NO IGNITION SOURCES IDENTIFIED IN BELONGINGS. PT HAS NICOTINE PATCH IN PLACE. INTENTIONAL ROUNDING COMPLETED EVERY 1 HOUR.
--- NOTE | 2023-04-12 12:18 | NUR ---
REASSESSMENT PT REMAINS INTUBATED AND SEDATED. SEDATION TURNED OFF THIS MORNING FOR ROUNDS AND PT QUICKLY STARTED COUGHING, BECOMING ASYNCHRONOUS WITH THE VENT. PRN FENTANYL GIVEN AND SEDATION RESTARTED PER DR. GAN. LUNG SOUNDS ARE CLEAR, BUT DIM. SMALL AMT OF DUNN SPUTUM SUCTIONED OUT OF ETT. PT IS ABLE TO FOLLOW COMMANDS, EVEN WITH SEDATION ON. SR, BP STABLE, GOOD URINE OUT PUT, TOLERATING TUBE FEED. AURE CALLED AND WAS PROVIDED WITH UPDATE.
--- NOTE | 2023-04-12 17:27 | NUR ---
SHIFT SUMMARY PT REMAINS INTUBATED AND SEDATED TODAY. HE HAS HAD MORE SECRETIONS FROM ETT THIS AFTERNOON, DUNN AND SLIGHTLY BLOOD TINGED. LUNGS ARE STILL CLEAR, BUT DIM, ESPECIALLY ON EXPIRATION. AR, BP STABLE. TOLERATING TUBE FEED, GOOD URINE OUTPUT. CONTINUING TO MONITOR.
--- NOTE | 2023-04-12 20:31 | NUR ---
ASSUMED CARE CARE WAS ASSUMED OF THE PT AT 1900, REPORT GIVEN BY ANTONETTE RAINEY. PT REMAINS INTUBATED AND SEDATED. PROPOFOL @ 30 MCG/KG/MIN AT BEGINNING OF SHIFT. PROPOFOL NOW AT 35. VENT SETTINGS AC/VC 14/430/6/50%. O2 SATS >90%. CARDIAC MONITORING REFLECTS NSR. HR 90s, SBP 100s. TF INFUSING. SHAHID PATENT AND DRAINING TO GRAVITY. NS TKO INFUSING.
[2023-04-13] VITALS (34 sets, daily range): BP systolic 98–136; BP diastolic 58–75
--- NOTE | 2023-04-13 05:58 | NUR ---
SHIFT SUMMARY PT REMAINS INTUBATED AND SEDATED. PROPOFOL GTT INFUSING @ 30 MCG/KG/MIN AT THIS TIME. PT CAN OPEN EYES TO VERBAL STIMULATION. VENT SETTINGS REMAIN AC/VC 14/430/6/50%. PT TOLERATING WELL, OCCASIONALLY COUGHS BUT IS RELIEVED BY ETT SUCTION. O2 SATS >92%. CARDIAC MONITORING REFLECTED NSR, HR 70s-80s. SBP 100s-110s. TF INFUSING. NS TKO INFUSING. NEW PIV WAS STARTED THIS SHIFT D/T PREVIOUS IV LEAKING. PT DID NOT HAVE A BM THIS SHIFT. SHAHID PATENT AND DRAINING TO GRAVITY. PT AFEBRILE THIS SHIFT. PT HAD BED BATH THIS SHIFT. WILL CONTINUE TO MONITOR UNTIL CARE IS TRANSITIONED TO DAY SHIFT.
[2023-04-13 08:40] LABS: Bun/Creatinine Ratio 55.8 (12.0-20.0); Calcium, Blood 8.5 mg/dL (8.5-10.1); Creatinine, Blood 0.79 mg/dL (0.60-1.20); Potassium, Blood 4.5 mmol/L (3.5-5.5)
[2023-04-13 10:07] LABS: BASOPHILS ABSOLUTE AUTO 0.01 K/mm3 (0.00-0.23); BASOPHILS PERCENT AUTO 0 % (0-2); EOSINOPHILS PERCENT AUTO 0 % (0-6); Hemoglobin 13.2 g/dL (13.5-17.5); IMMATURE GRAN ABSOLUTE AUTO 0.13 K/mm3 (0.00-0.10); IMMATURE GRAN PERCENT AUTO 1 % (0-1); LYMPHOCYTES ABSOLUTE AUTO 0.42 K/mm3 (0.84-5.20); LYMPHOCYTES PERCENT AUTO 3 % (21-46); MONOCYTES ABSOLUTE AUTO 0.53 K/mm3 (0.16-1.47); MONOCYTES PERCENT AUTO 4 % (4-13); Mean Corpuscular HGB 34.2 pg (26.0-34.0); Mean Corpuscular Volume 104 fL (80-100); Mean Platelet Volume 10.3 fL (9.1-12.4); NEUTROPHILS ABSOLUTE AUTO 12.05 K/mm3 (1.96-9.15); NEUTROPHILS PERCENT AUTO 92 % (41-73); Platelet Count 217 K/mm3 (150-400); RDW Coefficient Variation 13.2 % (11.7-14.2); Red Blood Cell Count 3.86 M/mm3 (4.30-5.90); White Blood Cell Count 13.14 K/mm3 (4.00-11.30)
--- NOTE | 2023-04-13 18:16 | NUR ---
SHIFT SUMMARY NO ACUTE CHANGES THIS SHIFT. PT REMAINS INTUBATED AND SEDATED. PT REMAINS SEDATED WITH PROPOFOL AT 30 MCG/KG/MIN. PT HAS BEEN ON PRESSURE SUPPORT OF 5/5, FIO2 CURRENTLY 45% FOR MOST OF THIS SHIFT. PT TOLERATING EXTENDED PRESSURE SUPPORT TRIAL WELL. PT CONTINUES TO HAVE THICK, DUNN/WHITE ETT SECRETIONS AND COUGHING FITS AT TIMES. OGT REMAINS IN PLACE WITH TF INFUSING AT GOAL RATE. PIV'S IN PLACE, NS INFUSING TKO. SHAHID TEMP PROBE IN PLACE WITH CLEAR YELLOW URINE OUTPUT NOTED. PT WITHDRAWS TO NOXIOUS STIMULI, BUT DOES NOT FOLLOW COMMANDS THROUGHOUT THE THE DAY. SBW RESTRAINTS REMAIN IN PLACE. PT DAUGHTER AT BEDSIDE THIS MORNING UPDATED TO PLAN OF CARE. VITAL SIGNS REMAIN STABLE. WILL CONTINUE TO MONITOR AND REPORT OFF TO ONCOMING RN.
--- NOTE | 2023-04-13 19:47 | NUR ---
ASSUMED CARE CARE WAS ASSUMED OF PT AT 1900, REPORT GIVEN BY SKYLA RAINEY. PT REMAINS INTUBATED AND SEBATED. PROPOFOL @ 30 MCG/KG/MIN. PT OPENS EYES SPONT. WELL TO VERBAL STIMULATION. VENT SETTINGS SPONT/PS 5/5/45%. PT TOLERATING WELL, O2 SATS > 90%. PT COUGHING OCCASIONALLY, WHICH IS RELIEVED WITH ETT SUCTION. MODERATE AMOUT ON THIN/THICK CLEAR SECRETIONS NOTED IN SUCTION TUBING. CARDIAC MONITORING REFLECTS NSR, SBP 110s. HR 90s. PT AFEBRILE. SHAHID PATENT AND DRAINING TO GRAVITY. NS TKO INFUSING.
[2023-04-14] VITALS (33 sets, daily range): BP systolic 108–157; BP diastolic 70–139
--- NOTE | 2023-04-14 03:20 | NUR ---
SEDATION VACATION PT'S PROPOFOL WAS DECREASED TO 15 MCG/KG/MIN AT 0025. PT HAS TOLERATED WELL SINCE THEN. PT'S EYES OPEN SPONTANEOUSLY AND CAN MAINTAIN EYE CONTACT. PT HAS OCCASIONAL COUGHING FITS, BUT RECOVERS QUICKLY. WILL CONTINUE TO MONITOR AND MAKE ADJUSTMENTS NEEDED.
[2023-04-14 03:56] LABS: BASOPHILS ABSOLUTE AUTO 0.03 K/mm3 (0.00-0.23); BASOPHILS PERCENT AUTO 0 % (0-2); EOSINOPHILS PERCENT AUTO 0 % (0-6); Hematocrit 42.9 % (37.0-53.0); Hemoglobin 13.8 g/dL (13.5-17.5); IMMATURE GRAN PERCENT AUTO 2 % (0-1); LYMPHOCYTES ABSOLUTE AUTO 0.54 K/mm3 (0.84-5.20); LYMPHOCYTES PERCENT AUTO 4 % (21-46); MONOCYTES ABSOLUTE AUTO 0.56 K/mm3 (0.16-1.47); MONOCYTES PERCENT AUTO 4 % (4-13); Mean Corpuscular HGB 33.5 pg (26.0-34.0); Mean Corpuscular HGB Conc 32.2 g/dL (31.5-36.5); Mean Corpuscular Volume 104 fL (80-100); Mean Platelet Volume 10.7 fL (9.1-12.4); NEUTROPHILS ABSOLUTE AUTO 11.53 K/mm3 (1.96-9.15); NEUTROPHILS PERCENT AUTO 90 % (41-73); Platelet Count 215 K/mm3 (150-400); RDW Coefficient Variation 13.2 % (11.7-14.2); RDW Standard Deviation 50.3 fL (35.1-46.3); Red Blood Cell Count 4.12 M/mm3 (4.30-5.90); White Blood Cell Count 12.86 K/mm3 (4.00-11.30)
[2023-04-14 04:19] LABS: Calcium, Blood 8.7 mg/dL (8.5-10.1); Creatinine, Blood 0.83 mg/dL (0.60-1.20); Potassium, Blood 4.8 mmol/L (3.5-5.5)
--- NOTE | 2023-04-14 06:12 | NUR ---
SHIFT SUMMARY PT REMAINS INTUBATED AND SEDATED. AROUND MIDNIGHT PROPOFOL WAS TITRATED DOWN TO 15 MCG/KG/MIN FOR SEDATION VACATION. PT TOLERATED WELL, AND THEN BEGAN TO COUGH MORE CONSISTENTLY AND BEGIN TO APPEAR UNCOMFORTABLE. HR ALSO BECAME SLIGHTLY IRREGULAR DURING THIS TIME, SO PROPOFOL TITRATED BACK TO 30 MCG/KG/MIN AND REMAINS AT THIS RATE. PT ABLE TO OPEN EYES TO VERBAL AND PHYSICAL STIMULATION. TOLERATING VENTILATOR WELL, REMAINS ON SPONT/PS 8/5/45%. O2 SATS > 90%. MODERATE AMOUNT OF SECRETIONS NOTED IN SUCTION TUBING, THICK/THIN AND CLEAR/WHITE IN APPEARANCE. HI LIFT OPERATOR REFLECTS NSR, HR 77. SBP 110s. SHAHID PATENT AND DRAINING TO GRAVITY. PT HAS NOT HAD BM YET, BOWEL CARE GIVEN PER EMAR.
--- NOTE | 2023-04-14 11:09 | NUR ---
EXTUBATION PT DID WELL THIS MORNING ON PRESSURE SUPPORT OF 5/5, FIO2 45%. OK TO EXTUBATE PER DR GAN. PT EXTUBATED AT 1100 BY RT SIMON. PT PLACED ON 4L 02 NC AT THIS TIME. SPO2 87%. BREATHING TREATMENT IN PROGRESS AT THIS TIME. OGT DC'D WITH EXTUBATION.
--- NOTE | 2023-04-14 14:53 | NUR ---
Spiritual Care Visit. Pt. is awake in bed and welcomes my visit. Pt. is pleasant, but displays evidence of responding slowly to my questions. Nalini mold worker chose to keep questions simple. Pt. displays evidence of being encoruaged by the visit. Prayed with the Pt. pt. verbalized gratitude for the spiritual care visit.
--- NOTE | 2023-04-14 16:42 | NUR ---
SHIFT SUMMARY PT HAS DONE WELL THIS SHIFT. PT EXTUBATED THIS AM. PT HAS REMAINED AWAKE AND ALERT, BUT IS NOT ABLE TO ANSWER ORIENTATION QUESTIONS. PT SPEECH IS NONSENSICAL. PT IS REDIRECTABLE FOR BREIF PERIODS, BUT IS CONFUSED OTHERWISE. PT ON 8L HIFLOW 02 VIA NC. PT CONTINUES TO HAVE HARSH/MOIST COUGHING FITS. IV'S REMAIN IN PLACE WITH NS INFUSING TKO. SHAHID REMAINS IN PLACE WITH CLEAR YELLOW URINE OUTPUT NOTED. VITAL SIGNS STABLE. PT UNABLE TO PARTICIPATE IN BEDSIDE SWALLOW EVAL AT THIS TIME DUE TO CONFUSION AND COUGHING FITS. PT WITH INCONTINENT BM THIS SHIFT. WILL CONTINUE TO MONITOR AND REPORT OFF TO ONCOMING RN.
--- NOTE | 2023-04-14 20:49 | NUR ---
ASSUMED CARE CARE WAS ASSUMED OF PT AT 1900, REPORT GIVEN BY JARROD RAINEY. PT ALERT AND CONFUSED. PT IS REDIRECTABLE AND ABLE TO FOLLOW DIRECTIONS. PT ON HUMIDIED HI-FLOW NC 7 L, TOLERATING WELL. O2 SATS > 90%. CARDIAC MONITORING REFLECTS NSR, HR 90s. SBP 130s-140s. NS TKO INFUSING IN R FOREARM PIV. LEFT AC PIV SL. SHAHID PATENT AND DRAINING TO GRAVITY. PT HAS RED/BROWN SUBSTANCE CRUSTED AROUND LIPS. ORAL CARE PERFORMED.
--- NOTE | 2023-04-14 20:50 | NUR ---
ATTEMPTED BEDSIDE SWALLOW EVAL TO ASSESS IF PT WAS SAFE TO TAKE PO MEDS. PT FAILED EVAL, IMMEDIATELY BEGAN COUGHING WHEN TRYING TO SWALLOW WATER. HOSPITALIST NOTIFIED AT 2039, RECEIVED TELEPHONE ORDER FOR LABETALOL. SEE EMAR. PT TO REMAIN NPO FOR RISK OF ASPIRATION.
[2023-04-15] VITALS (19 sets, daily range): BP systolic 120–165; BP diastolic 71–110
[2023-04-15 03:40] LABS: BASOPHILS ABSOLUTE AUTO 0.05 K/mm3 (0.00-0.23); BASOPHILS PERCENT AUTO 0 % (0-2); EOSINOPHILS PERCENT AUTO 0 % (0-6); Hematocrit 43.6 % (37.0-53.0); Hemoglobin 14.1 g/dL (13.5-17.5); IMMATURE GRAN ABSOLUTE AUTO 0.33 K/mm3 (0.00-0.10); IMMATURE GRAN PERCENT AUTO 3 % (0-1); LYMPHOCYTES ABSOLUTE AUTO 0.75 K/mm3 (0.84-5.20); LYMPHOCYTES PERCENT AUTO 6 % (21-46); MONOCYTES ABSOLUTE AUTO 0.76 K/mm3 (0.16-1.47); MONOCYTES PERCENT AUTO 6 % (4-13); Mean Corpuscular HGB 33.5 pg (26.0-34.0); Mean Corpuscular HGB Conc 32.3 g/dL (31.5-36.5); Mean Corpuscular Volume 104 fL (80-100); Mean Platelet Volume 10.3 fL (9.1-12.4); NEUTROPHILS ABSOLUTE AUTO 11.51 K/mm3 (1.96-9.15); NEUTROPHILS PERCENT AUTO 86 % (41-73); Platelet Count 198 K/mm3 (150-400); RDW Coefficient Variation 13.2 % (11.7-14.2); RDW Standard Deviation 50.8 fL (35.1-46.3); Red Blood Cell Count 4.21 M/mm3 (4.30-5.90)
[2023-04-15 04:12] LABS: Creatinine, Blood 0.79 mg/dL (0.60-1.20); Potassium, Blood 4.6 mmol/L (3.5-5.5)
--- NOTE | 2023-04-15 05:41 | NUR ---
SHIFT SUMMARY PT REMAINS ALERT AND CONFUSED. PT IS REDIRECTABLE AND ABLE TO FOLLOW COMMANDS. PT DID NOT HAVE ANY ACUTE EVENTS THIS SHIFT. PT REMAINS ON 7 L N/C, O2 SATS > 90%. CARDIAC MONITORING REFLECTS NSR, HR 80s-90s. SBP 120s-130s. BEDSIDE SWALLOW EVAL WAS ATTEMPED AT BEGINNING OF SHIFT, PT FAILED AT FIRST ATTEMPT. PT BEGAN TO COUGH WHEN TRYING TO SWALLOW TSP OF WATER GIVEN. HOSPITALIST AWARE, PO MEDS WERE HELD. PT HAS RESIDUE BUILDUP ON UPPER LIPS, NYSTATIN CREAM HELD D/T PT CONSISTENTLY SMACKING AND LICKING LIPS. ORAL CARE PERFORMED AND PT OFFERED MOISTENED GREEN SWABS FOR COMFORT. NS TKO INFUSING. ADDITIONAL PIV ON L FOREARM SL. WILL CONTINUE TO MONITOR UNTIL CARE IS TRANSITIONED TO DAY SHIFT.
--- NOTE | 2023-04-15 09:25 | NUR ---
ASSUMED CARE REPORT FROM YOU/MASON RN AT 0700. PT RESTING IN BED. A&OX 1. FOLLOWS SIMPLE COMMANDS. ANSWERS QUESTIONS. UNSURE OF LOCATION OR DATE. LUNGS DIM c OCCASIONAL WHEEZE. 6L VIA HFNC. OCCASIONAL COUGH. PASSED BEDSIDE SWALLOW. PO MEDS AND MECHANICAL SOFT BREAKFAST GIVEN. ASSISTED c MEAL. SR, RATE 90'S. BP STABLE. ABD ROUND, SOFT, NON TENDER, BT X 4. ATTEMPTED TO SIT AT BEDSIDE. UNABLE TO. PT/OT ORDERED. DR CHAN ROUNDED. STATUS CHANGED TO PCU. WILL CONTINUE TO MONITOR.
--- NOTE | 2023-04-15 17:53 | NUR ---
SHIFT SUMMARY PT STATUS CHANGED TO PCU THIS SHIFT. REMAINS ON 6L VIA HFNC. LUNGS DIM c OCCASIONAL WHEEZE. SPEAKING IN FULL SENTENCES. PT ORIENTED TO SELF ONLY. INCREASED CONFUSION THIS EVENING. ABLE TO REORIENT. FOLLOWS COMMANDS. SR, RATE 90-100'S. BP STABLE. 3 EPISODES OF EMESIS THIS EVENING, DINNER HELD. PT STATES HE IS FEELING BETTER. WORKED c PT/OT. ABLE TO STAND AT BEDSIDE c WALKER AND ASSIST. WILL CONTINUE MONITOR UNTIL REPORT TO ONCOMING NURSE.
--- NOTE | 2023-04-15 18:13 | NUR ---
PT HAD ANOTHER EPISODE OF EMESIS. MEDICATED c ZOFRAN. DR DEL CID NOTIFIED. CHEST XRAY AND KUB ORDERED. NPO.
[2023-04-16] VITALS (20 sets, daily range): BP systolic 108–134; BP diastolic 67–86
[2023-04-16 04:01] LABS: Hematocrit 43.6 % (37.0-53.0); Hemoglobin 14.3 g/dL (13.5-17.5); Mean Corpuscular HGB 33.8 pg (26.0-34.0); Mean Corpuscular HGB Conc 32.8 g/dL (31.5-36.5); Mean Corpuscular Volume 103 fL (80-100); Mean Platelet Volume 10.4 fL (9.1-12.4); Platelet Count 182 K/mm3 (150-400); RDW Coefficient Variation 12.9 % (11.7-14.2); RDW Standard Deviation 49.1 fL (35.1-46.3); Red Blood Cell Count 4.23 M/mm3 (4.30-5.90); White Blood Cell Count 14.19 K/mm3 (4.00-11.30)
[2023-04-16 04:33] LABS: Albumin, Blood 3.4 g/dL (3.4-5.0); Anion Gap 1 mmol/L (6-16); Blood Urea Nitrogen 35 mg/dL (8-24); Bun/Creatinine Ratio 45.9 (12.0-20.0); CO2, Blood 35 mmol/L (21-32); Calcium, Blood 8.4 mg/dL (8.5-10.1); Chloride, Blood 103 mmol/L (98-108); Creatinine, Blood 0.76 mg/dL (0.60-1.20); Glomerular Filtration Rate 101 (60-); Glucose, Blood 276 mg/dL (70-99); Phosphorus, Blood 5.8 mg/dL (2.5-4.9); Potassium, Blood 5.3 mmol/L (3.5-5.5); Sodium, Blood 139 mmol/L (136-145)
--- NOTE | 2023-04-16 06:51 | NUR ---
SHIFT SUMMARY PT ALERT TO SELF AND YEAR. FOLLOWS SIMPLE COMMANDS AND MOVES ALL EXTREMITIES. CALLS OUT FOR HIS CAREGIVERS AT TIMES. PT INITIALLY DENYING N/V/ABD PAIN. APPROX 2029 PT HAD EPISODE OF LARGE EMESIS AND C/O ABD PAIN. NGT PLACED AND PLACEMENT VERIFIED WITH HOSP. PM MEDS HELD D/T N/V. ATTEMPTED TO GIVE MEDS LATE VIA NGT BUT PT CONTINUED TO C/O N/V AFTER ZOFRAN ADMINISTERED. PT THEN ACCIDENTALLY PULLED OUT NG HALF WAY. NGT REINSERTED AND PLACEMENT VERIFIED WITH HOSP. AM MEDS GIVEN VIA NGT. SR RATE 70'S. VSS. POST VOID BLADDER SCAN 648. STRAIGHT CATH DONE, 650 OUT.
--- NOTE | 2023-04-16 08:00 | NUR ---
INITIAL ASSESSMENT PATIENT ALERT, PLEASANT AND COOPERATIVE. PATIENT ORIENTED TO SELF ONLY. PATIENT REDIRECTABLE. PATIENT HAS SCHIZO, ALZHEIMERS, DEMENTIA. PATIENT WEAK BUT ABLE TO MOVE ALL EXTREMITIES. PATIENT AFEBRILE. PATIENT DENIES PAIN. PATIENT ON OXYMASK AT 6 L. WHEEZES NOTED IN LUNG LOBES. OCCASIONAL, NONPRODUCTIVE COUGH NOTED. PATIENT IN SR, HR IN THE 80S. SBP IN THE 1-TEENS. ABDOMEN MODERATELY DISTENDED, SOFT. NG IN PLACE TO LIS DRAINING BROWN/ MAROON LIQUID. PATIENT HAS BEEN GETTING STRAIGHT CATHED FOR RETENTION. SKIN PALE AND COOL. SCATTERED BRUISES NOTED. BED LOW, CALL LIGHT IN REACH.
[2023-04-16 10:24] LABS: Albumin, Blood 3.3 g/dL (3.4-5.0); Albumin/Globulin Ratio 1.3 (0.8-1.8); Bilirubin, Direct 0.1 mg/dL (0.0-0.3); Bilirubin, Indirect 0.5 mg/dL (0.1-0.7); Bilirubin, Total 0.6 mg/dL (0.1-1.0); Globulin, Blood 2.6 g/dL (2.2-4.0); Total Protein, Blood 5.9 g/dL (6.4-8.2)
--- NOTE | 2023-04-16 12:00 | NUR ---
PATIENT AFEBRILE. HR IN THE 70S. SBP IN THE 1-TEENS. NO COMPLAINTS. CARE CONTINUES.
--- NOTE | 2023-04-16 15:21 | NUR ---
Left a message on voicemail for Barbara, nurse at [facility], attempting to clarify patient's Invega regimen. Left ICU nursing desk phone number for return call.
--- NOTE | 2023-04-16 16:45 | NUR ---
SHIFT SUMMARY PATIENT REMAINED PLEASANTLY CONFUSED AND EASILY REDIRECTABLE. PATIENT REMAINED WEAK BUT ABLE TO MOVE ALL EXTREMITIES. PATIENT REMAINED AFEBRILE. PATIENT HAD NO COMPLAINTS OF PAIN THIS SHIFT. PATIENT REMAINED SATTING 90% AND GREATER ON 6 L OXYMASK OR 6 L NC. PATIENT SR, HR 70S TO 80S. SBP 1-TEENS TO 120S. ABD MODERATELY DISTENDED. NO BM THIS SHIFT. NG TUBE TO LIS DRAINING BROWN/ MAROON LIQUID THIS AM. NG CLAMPED AND PATIENT PLACED ON CLEAR LIQUIDS. PATIENT HAS BEEN TOLERATING CLEAR LIQUIDS WELL AND HAS HAD NO COMPLAINTS OF NAUSEA THIS SHIFT. PATIENT HAS REMAINED WITH URINARY RETENTION. 800 MLS OF YELLOW URINE DRAINED FROM URINE WITH STRAIGHT CATH AROUND NOON. NO CHANGES TO SKIN NOTED. PATIENT REPOSITIONED Q2H. PATIENT HAD COMPLETE BED BATH THIS SHIFT. PROTONIX INCREASED THIS SHIFT. BLOOD SUGARS IN THE 160S. PATIENT TRANSFERRED TO PCU ROOM 20; ALL BELONGINGS SENT WITH PATIENT. TRANSFER COMPLETE.
--- NOTE | 2023-04-16 17:35 | NUR ---
PATIENT TRANSFER FROM ICU 14 TO PCU 20. ALERT TO SELF AND . UNABLE TO TELL ME DETAILS OF WHY HE IS HERE. PERRLA. ABLE TO FOLLOW SIMPLE COMMANDS. CONFUSED AT TIMES AND NEEDING REORIENTATION. DENTURES IN PLACE. EATING CLEAR LIQUID DIET AT THIS TIME TOLERATING WELL. NG TUBE REMAINS CLAMED. PATIENT ABLE TO TAKE PO MEDS SAFELY. CBG CHECKED AND INSULIN GIVEN PER EMAR. IV SALINE LOCKED. TELE SHOWING SR WITH HR 80'S. BP STABLE. DENIES CHEST PAIN/PRESSURE. DISTENDED ABD. BOWEL TONES PRESENT. ON 6-7L HIGH FLOW NASAL CANNULA SATING 90-94%. LUNGS SOUNDING CLEAR AND DIM IN BASES. OCCASIONAL COUGH. EVEN AND UNLABORED RESPIRATIONS. SKIN OVERALL C/D/I. SCATTERED BRUISING. BED ALARM IN PLACE. CALL LIGHT IN REACH. TOLERATING CLEAR LIQUID DIET AT THIS TIME.
[2023-04-16 18:25] LABS: Source, Urine Foley catheter
[2023-04-16 18:28] LABS: Appearance, Urine Clear (Clear); Bilirubin, Urine Neg (Neg); Blood, Urine 1+ (Neg); Color, Urine Yellow (P-Yellow); Glucose Qualitative, Urine 3+ (Neg); Ketones, Urine Neg (Neg); Leukocyte Esterase, Urine Neg (Neg); Nitrite, Urine Neg (Neg); Protein, Urine 1+ (Neg); Specific Gravity, Urine 1.015 (1.003-1.022); Urobilinogen, Urine NORM (Normal); pH, Urine 6.5 (5.0-8.0)
--- NOTE | 2023-04-16 18:28 | NUR ---
SHIFT SUMMARY: NO ACUTE CHANGES, SEE PREVIOUS NOTE. SHAHID CATH PLACED DUE TO PRIOR 3 STRAIGHT CATHS AND PATIENT CONTINUING TO HAVE RETENTION ISSUES. BLADDER SCAN DONE PRIOR SHOWING 668ML. NEW UA SENT TO LAB PER PROTOCOL. PATIENT CONTINUES TO TOLERATE DINNER. DENIES ABDOMINAL PAIN/NAUSEA. NO CHANGES TO TELE. ON 6-7L HIGH FLOW NASAL CANNULA. BED ALARM IN PLACE. CALL LIGHT IN REACH. PATIENT WATCHING TV AND DENIES NEEDS AT THIS TIME.
[2023-04-16 19:27] LABS: Bacteria Few /hpf; Red Blood Cells, Urine 0-2 /hpf (0-2); Squamous Epithelial Cells Rare /hpf (Few); White Blood Cells, Urine 0-2 /hpf (0-5)
--- NOTE | 2023-04-16 21:34 | NUR ---
ASSUMED PT CARE FORM PUMA RAINEY ON DAY SHIFT. ALERT, ORIENTED X 1-2, PLEASANT AND COOPERATIVE. NO COMPLAINTS OF ANY SOB. O2 SATS MAINTAINED > 92% ON 6 LPM VIA HIGH FLOW NC. DENIES CHEST PAIN. HR IS SR IN 90'S. BP STABLE. NG TUBE CLAMPED. ABLE TO AUSCULTATE AIR BOLUS IN ABDOMEN. PT DENIES ANY NAUSEA. ABLE TO TAKE PILLS WHOLE WITH WATER. REPOSITIONED FOR COMFORT. CALL LIGHT IN REACH. BED IN LOW POSITION.
[2023-04-17] VITALS (11 sets, daily range): BP systolic 108–135; BP diastolic 65–103
[2023-04-17 03:41] LABS: BASOPHILS ABSOLUTE AUTO 0.07 K/mm3 (0.00-0.23); BASOPHILS PERCENT AUTO 0 % (0-2); EOSINOPHILS ABSOLUTE AUTO 0.05 K/mm3 (0.00-0.68); EOSINOPHILS PERCENT AUTO 0 % (0-6); Hematocrit 43.3 % (37.0-53.0); Hemoglobin 14.8 g/dL (13.5-17.5); IMMATURE GRAN ABSOLUTE AUTO 0.49 K/mm3 (0.00-0.10); IMMATURE GRAN PERCENT AUTO 3 % (0-1); LYMPHOCYTES ABSOLUTE AUTO 1.47 K/mm3 (0.84-5.20); LYMPHOCYTES PERCENT AUTO 9 % (21-46); MONOCYTES ABSOLUTE AUTO 1.43 K/mm3 (0.16-1.47); MONOCYTES PERCENT AUTO 9 % (4-13); Mean Corpuscular HGB Conc 34.2 g/dL (31.5-36.5); Mean Corpuscular Volume 100 fL (80-100); Mean Platelet Volume 10.6 fL (9.1-12.4); NEUTROPHILS PERCENT AUTO 79 % (41-73); Platelet Count 175 K/mm3 (150-400); RDW Coefficient Variation 12.4 % (11.7-14.2); RDW Standard Deviation 45.3 fL (35.1-46.3); Red Blood Cell Count 4.35 M/mm3 (4.30-5.90); White Blood Cell Count 16.91 K/mm3 (4.00-11.30)
[2023-04-17 04:10] LABS: Anion Gap 1 mmol/L (6-16); Blood Urea Nitrogen 31 mg/dL (8-24); Bun/Creatinine Ratio 46.3 (12.0-20.0); CO2, Blood 35 mmol/L (21-32); Calcium, Blood 8.3 mg/dL (8.5-10.1); Chloride, Blood 104 mmol/L (98-108); Creatinine, Blood 0.67 mg/dL (0.60-1.20); Glomerular Filtration Rate 105 (60-); Glucose, Blood 160 mg/dL (70-99); Phosphorus, Blood 3.4 mg/dL (2.5-4.9); Potassium, Blood 4.5 mmol/L (3.5-5.5); Sodium, Blood 140 mmol/L (136-145)
--- NOTE | 2023-04-17 07:18 | NUR ---
SHIFT SUMMARY: NO ACUTE CHANGES NOTED DURING THIS SHIFT. SLEEPING DURING MAJORITY OF SHIFT. WAKES TO TOUCH. ABLE TO SWALLOW PILLS WITHOUT DIFFICULTY. VITAL SIGNS STABLE. NO NAUSEA. NG TUBE REMAINS CLAMPED. CALL LIGHT IN REACH. BED IN LOW POSITION.
--- NOTE | 2023-04-17 09:06 | NUR ---
AM NOTE: PATIENT AWAKE AND ALERT THIS AM. ABLE TO TELL ME WHERE HE IS AND WHO HE IS. CONFUSED AT TIMES AND ASKING REPETATIVE QUESTIONS. PERRLA. NUMBNESS TO FINGERTIPS. MOVING ALL EXTREMITIES EQUALLY. FOLLOWING SIMPLE COMMANDS. OVERALL VERY WEAK. IMPULSIVE AT TIMES AND TRYING TO SIT ON EDGE OF BED. BED ALARM IN PLACE. PT/OT ORDERS IN PLACE. TELE SHOWING SR WITH HR 70-80'S. BP STABLE. PPP. MINIMAL EDEMA IN BLE. SC LOVENOX GIVEN THIS AM. WEARING 7L HIGH FLOW NASAL CANNULA THIS AM SATING 87%. PATIENT HAD TO BE TURNED UP TO 11L HIGH FLOW TO MAINTAIN 89-93% O2 SATURATION. CURRENTLY PATIENT ON 11L HIGH FLOW. RESPIRATORY IN TO ASSES, BREATHING TREATMENT GIVEN. LUNGS SOUNDING DIM THROUGHOUT WITH MINIMAL AIR MOVEMENT. OCCASIONAL COUGH. PATIENT DENIES SOB AND STATES "MY BREATHING IS DOING GOOD". MODERATE ABDOMINAL DISTENTION, NG TUBE IN PLACE. PATIENT DENIES N/V. TOLERATING CLEAR LIQUID DIET. BOWEL TONES PRESENT. SWALLOWING PILLS WHOLE WITH WATER, NO ASPIRATION CONCERNS NOTED. ATTENDS IN PLACE. SHAHID CATH DRAINING CLEAR/YELLOW URINE TO GRAVITY. CATH CARE COMPLETED THIS AM. SKIN OVERALL C/D/I WITH SCATTERED BRUISING. CALL LIGHT IN REACH. DENIES NEEDS AT THIS TIME.
--- NOTE | 2023-04-17 12:45 | NUR ---
NG TUBE REMOVAL WNL. PATIENT EATING FULL LIQUID DIET AT THIS TIME. DENIES ABDOMINAL PAIN/NAUSEA. IV LASIX GIVEN PER EMAR/DR. SPARKS. SHAHID CATH IN PLACE DRAINING URINE.
--- NOTE | 2023-04-17 13:26 | NUR ---
CATHETER DRAINED 1300ML OUTPUT POST LASIX. URINE CLEAR AND YELLOW.
--- NOTE | 2023-04-17 15:37 | NUR ---
BLADDER TRAINING STARTED. SHAHID CATH CLAMPED AT 1500.
--- NOTE | 2023-04-17 17:02 | NUR ---
PATIENT USES CALL LIGHT AND TELL THIS RN HE HAS TO PEE. SHAHID UNCLAMPED AT 1659. WILL DRAIN BLADDER AND CLAMP AGAIN.
[2023-04-18] VITALS (7 sets, daily range): BP systolic 90–125; BP diastolic 62–91
[2023-04-18 04:23] LABS: BASOPHILS ABSOLUTE AUTO 0.08 K/mm3 (0.00-0.23); BASOPHILS PERCENT AUTO 1 % (0-2); EOSINOPHILS ABSOLUTE AUTO 0.25 K/mm3 (0.00-0.68); EOSINOPHILS PERCENT AUTO 2 % (0-6); Hematocrit 44.8 % (37.0-53.0); Hemoglobin 15.4 g/dL (13.5-17.5); IMMATURE GRAN ABSOLUTE AUTO 0.62 K/mm3 (0.00-0.10); IMMATURE GRAN PERCENT AUTO 4 % (0-1); LYMPHOCYTES ABSOLUTE AUTO 2.38 K/mm3 (0.84-5.20); LYMPHOCYTES PERCENT AUTO 17 % (21-46); MONOCYTES ABSOLUTE AUTO 1.23 K/mm3 (0.16-1.47); MONOCYTES PERCENT AUTO 9 % (4-13); Mean Corpuscular HGB 33.3 pg (26.0-34.0); Mean Corpuscular HGB Conc 34.4 g/dL (31.5-36.5); Mean Corpuscular Volume 97 fL (80-100); Mean Platelet Volume 10.7 fL (9.1-12.4); NEUTROPHILS ABSOLUTE AUTO 9.46 K/mm3 (1.96-9.15); NEUTROPHILS PERCENT AUTO 67 % (41-73); Platelet Count 164 K/mm3 (150-400); RDW Coefficient Variation 12.3 % (11.7-14.2); RDW Standard Deviation 43.7 fL (35.1-46.3); Red Blood Cell Count 4.63 M/mm3 (4.30-5.90); White Blood Cell Count 14.02 K/mm3 (4.00-11.30)
[2023-04-18 04:49] LABS: Albumin, Blood 3.2 g/dL (3.4-5.0); Anion Gap 4 mmol/L (6-16); Blood Urea Nitrogen 25 mg/dL (8-24); Bun/Creatinine Ratio 35.7 (12.0-20.0); CO2, Blood 33 mmol/L (21-32); Calcium, Blood 8.5 mg/dL (8.5-10.1); Chloride, Blood 99 mmol/L (98-108); Glomerular Filtration Rate 104 (60-); Glucose, Blood 160 mg/dL (70-99); Phosphorus, Blood 3.3 mg/dL (2.5-4.9); Potassium, Blood 3.6 mmol/L (3.5-5.5); Sodium, Blood 136 mmol/L (136-145)
--- NOTE | 2023-04-18 07:16 | NUR ---
SHIFT SUMMARY A/Ox2-3 AND COOPERATIVE WITH CARE. OFTEN CONFUSED AT TIMES, BUT IS EASILY REDIRECTABLE. ANSWERS MOST QUESTIONS APPROPRIATELY AND ABLE TO MAKE HIS NEEDS KNOWN. NO ACUTE EVENTS OVERNIGHT FOR PT WAS ABLE TO SLEEP T/O MOST OF THE NIGHT. CARDIAC, REMAINS IN SR 60-90's WITH INTERMITTENT PVC's T/O THE NIGHT WITH NO REPORTS OF CP OR PRESSURE. SBP HAS BEEN STABLE RANGING 100-130's. RESPIRATORY, MAINTAINS SPO2 >90% ON 4-6L VIA NC. TACYPNEA NOTED WITH EXERTION, BUT DENIES SOB AT REST. GI/, SHAHID CATH REMAINS PATENT AND DRAINING YELLOW URINE TO GRAVITY. NO BM FOR THIS SHIFT. BLADDER TRAINING HAS CONTINUED T/O THE NIGHT ORDERED. DENIES N/V AND TOLERATING PO INTAKE WELL. CONTINUES TO BE WEAK WITH MOVEMENTS, BUT IS ABLE TO ADJUSTED HIMSELF IN BED AND OR SIT ON EDGE OF BED WITHOUT ASSISTANCE FROM STAFF. BED ALARM ON T/O THE NIGHT TO HELP PREVENT ANY FALLS. ASSESSED PT FOR RISKS OF ANY IGNITION SOURCES WELL BEHAVIORS FOR INCREASED RISKS OF FIRE DANGER. PT EDUCATED ON COMMON SOURCES OF IGNITION WELL NEED TO KEEP A SAFE ENVIRONMENT. PT VOICED UNDERSTANDING. NO NEW ORDERS AT THIS TIME, WILL REPORT TO ONCOMING RN. TRUDI CLOE OF THIS NOTE.
[2023-04-18] MEDS ORDERED: INVEGA SUS IM (10:24)
--- NOTE | 2023-04-18 17:38 | NUR ---
SHIFT SUMMARY ALERT, ORIENTED 2-3, PLEASANT, COOPERATIVE. FORGETFUL AT TIMES AND DOES NOT ALWAYS CALL APPROPRIATELY. TELE NSR 60'S TO 90'S WITH PVC'S. O2 WEANED FROM 4L TO 2L. TOLERATING ADA DIET AND LIQUIDS. SHAIHD DC'D, VOIDING WELL. RECENT ACUTE RETENTION AND SHY BLADDER AT BASELINE, CONTINUING TO MONITOR WITH BLADDER SCAN. SBA UP TO BSC AND RECLINER WITH FWW. PULL UPS IN PLACE. [employer]. WORKED WITH PT/OT. MEDICAL STATUS, NO TELE. SPOKE WITH CAREGIVER AT [facility] ON THE PHONE AND GAVE UPDATE. CAN CONTINUE PHYSICAL THERAPY AT [facility] UPON DISCHARGE.
[2023-04-19 03:55] VITALS: BP 114/61
[2023-04-19 04:06] LABS: BASOPHILS ABSOLUTE AUTO 0.06 K/mm3 (0.00-0.23); BASOPHILS PERCENT AUTO 0 % (0-2); EOSINOPHILS ABSOLUTE AUTO 0.28 K/mm3 (0.00-0.68); EOSINOPHILS PERCENT AUTO 2 % (0-6); Hematocrit 41.8 % (37.0-53.0); Hemoglobin 14.5 g/dL (13.5-17.5); IMMATURE GRAN PERCENT AUTO 4 % (0-1); LYMPHOCYTES PERCENT AUTO 17 % (21-46); MONOCYTES ABSOLUTE AUTO 1.33 K/mm3 (0.16-1.47); MONOCYTES PERCENT AUTO 9 % (4-13); Mean Corpuscular HGB 33.5 pg (26.0-34.0); Mean Corpuscular HGB Conc 34.7 g/dL (31.5-36.5); Mean Corpuscular Volume 97 fL (80-100); NEUTROPHILS ABSOLUTE AUTO 9.71 K/mm3 (1.96-9.15); NEUTROPHILS PERCENT AUTO 67 % (41-73); Platelet Count 151 K/mm3 (150-400); RDW Coefficient Variation 12.1 % (11.7-14.2); RDW Standard Deviation 43.4 fL (35.1-46.3); Red Blood Cell Count 4.33 M/mm3 (4.30-5.90); White Blood Cell Count 14.48 K/mm3 (4.00-11.30)
--- NOTE | 2023-04-19 05:14 | NUR ---
SHIFT SUMMARY A/Ox2-3 AND COOPERATIVE WITH CARE. OFTEN CONFUSED AT TIMES, BUT IS EASILY REDIRECTABLE. CAN ATTEMPT TO GET OUT OF BED WITHOUT WAITING FOR STAFF. ANSWERS MOST QUESTIONS APPROPRIATELY AND ABLE TO MAKE HIS NEEDS KNOWN. NO ACUTE EVENTS OVERNIGHT FOR PT WAS ABLE TO SLEEP T/O MOST OF THE NIGHT. CARDIAC, TELE WAS D/C'd DURING DAY SHIFT ON 04/18. HR HAS REMAINED IN 50-90's WITH NO REPORTS OF CP OR PRESSURE T/O THE NIGHT. SBP HAS BEEN STABLE RANGING 110-120's. RESPIRATORY, MAINTAINS SPO2 >90% ON 2-4L VIA NC. O2 NEEDS NOTED TO INCREASE WHEN SLEEPING AND PT INTERMITTENTLY SNORES. GI/, SHAHID CATH D/C d ON DAYSHIFT 04/18 WITH PT VOIDING SINCE ITS REMOVAL AND DURING THE NIGHT. NO BM FOR THIS SHIFT. DENIES N/V AND TOLERATING PO INTAKE WELL WITH DIET BEING ADVANCED TO ADA. CONTINUES TO BE WEAK WITH MOVEMENTS, BUT IS ABLE TO ADJUSTED HIMSELF IN BED AND OR SIT ON EDGE OF BED WITHOUT ASSISTANCE FROM STAFF. PT IS A LITTLE UNSTEADY ON HIS FEET, BUT IS ABLE TO AMBULATE TO BS WITH 1 STAFF ASSIST. BED ALARM ON T/O THE NIGHT TO HELP PREVENT ANY FALLS. POSSIBLE DC BACK TO [facility] THIS AM. ASSESSED PT FOR RISKS OF ANY IGNITION SOURCES WELL BEHAVIORS FOR INCREASED RISKS OF FIRE DANGER. PT EDUCATED ON COMMON SOURCES OF IGNITION WELL NEED TO KEEP A SAFE ENVIRONMENT. PT VOICED UNDERSTANDING. NO NEW ORDERS AT THIS TIME, WILL REPORT TO ONCOMING RN. TRUDI COLE OF THIS NOTE
[2023-04-19 05:55] LABS: Anion Gap 3 mmol/L (6-16); Blood Urea Nitrogen 23 mg/dL (8-24); Bun/Creatinine Ratio 29.4 (12.0-20.0); CO2, Blood 33 mmol/L (21-32); Calcium, Blood 8.5 mg/dL (8.5-10.1); Chloride, Blood 101 mmol/L (98-108); Creatinine, Blood 0.78 mg/dL (0.60-1.20); Glomerular Filtration Rate 100 (60-); Glucose, Blood 150 mg/dL (70-99); Potassium, Blood 3.4 mmol/L (3.5-5.5); Sodium, Blood 137 mmol/L (136-145)
[2023-04-19 07:53] VITALS: BP 115/96
--- NOTE | 2023-04-19 09:45 | NUR ---
ASSUMPTION OF CARE ASSUMED CARE AT APPROX 0700. PT AOX2-3, PLEASANT AND COOPERATIVE W/ CARE. INTERMITTENT EPISODES OF INCREASED CONFUSION NOTED, EASILY ABLE TO REORIENT. BED ALARM/CHAIR ALARM IN PLACE FOR SAFETY. VSS. MEDICAL STATUS W/O TELE. CURRENTLY ON 2L VIA HIGH FLOW, SATS >95%. [place] ASSESSED W/ MOBILITY, DECREASES W/ REST. VOIDING LARGE AMOUNTS AT A TIME, USING URINAL W/ ASSIST. 1P ASSIST W/ FWW AND GB, CURRENTLY SITTING IN CHAIR. CALL LIGHT IN REACH, CHAIR ALARM ON.
[2023-04-19] MEDS ORDERED: Prednisone10 MG PO (13:17)
--- NOTE | 2023-04-19 13:27 | NUR ---
SPiritual Care Visit. Pt. is awake in bed and welcomes this condenser setter's visit. Pt. is pleasant and verbalizes rememberance of our previous CT visit. Pt. verbally anticipates being discharged to [facility] today. Faciliate a life review and consider matters of michele and belief. Pt. verbalizes that he is looking forward to reconnecting with the residents at [facility]. Prayed with Pt. Pt. verbalized gratitude for this condenser setter's spiritual care visits.
[2023-04-19 15:09] VITALS: BP 117/72
--- NOTE | 2023-04-19 15:15 | NUR ---
DISCHARGE SUMMARY NO ACUTE CHANGES SINCE ASSUMPTION OF CARE. PT REMAINED AOX2-3. VSS. HOME OXYGEN EVAL PERFORMED BY RT PRIOR TO DISCHARGE. ON ROOM AIR, SATS >90%. BP REMAINED STABLE. VOIDING. NO BM THIS SHIFT. PT WORKED W/ PHYSICAL AND OCCUPATIONAL THERAPY PRIOR TO DISCHARGE. AMBULATING W/ FWW AND GB. PT RETURNING TO [facility] FOR DISCHARGE. CASE MANAGEMENT ON CASE ASSISTING W/ DISCHARGE. REPORT GIVEN TO ACCEPTING RN REGARDING DISCHARGE INSTRUCTIONS INCLUDING OXYGEN USE, MEDICATIONS, USE OF FWW FOR MOBILITY. DISCHARGE EDUCATION PROVIDED TO PT. BOTH PT AND ACCEPTING RN AGREE W/ PLAN FOR DISCHARGE. IV'S RMVD. PERSONAL BELONGINGS W/ PT. PT DISCHARGED TO [facility] VIA [facility] TRANSFER AROUND 1515.
== END 2023-04-19 15:14 | disposition home health service (06) | DRG 207 ==
LOC: ER 06:13 → PCU 09:18 → ICUE 09:18 → PCU 04-16 16:46
PROVIDERS: Family Medicine; Internal Medicine Critical Care Medicine; Student in an Organized Health Care Education/Training Program; ADMIT Internal Medicine
PROC: 5A1955Z Respiratory Ventilation, Greater than 96 Consecutive Hours (ICD-10-PCS; principal; 2023-04-10)
PROC: 0BH17EZ Insertion of Endotracheal Airway into Trachea, Via Natural or Artificial Opening (ICD-10-PCS; 2023-04-10)
PROC: 5A09357 Assistance with Respiratory Ventilation, Less than 24 Consecutive Hours, Continuous Positive Airway Pressure (ICD-10-PCS; 2023-04-10)
PROC: 0DH67UZ Insertion of Feeding Device into Stomach, Via Natural or Artificial Opening (ICD-10-PCS; 2023-04-11)
PROC: 4A133R1 Monitoring of Arterial Saturation, Peripheral, Percutaneous Approach (ICD-10-PCS; 2023-04-11)
PROC: 0T9B70Z Drainage of Bladder with Drainage Device, Via Natural or Artificial Opening (ICD-10-PCS; 2023-04-16)
DX: J96.21 Acute and chronic respiratory failure with hypoxia (principal); G92.8 Other toxic encephalopathy; J14 Pneumonia due to Hemophilus influenzae; J44.1 Chronic obstructive pulmonary disease with (acute) exacerbation; E87.29 Other acidosis; F02.818 Dementia in other diseases classified elsewhere, unspecified severity, with other behavioral disturbance; J44.0 Chronic obstructive pulmonary disease with (acute) lower respiratory infection; E72.51 Non-ketotic hyperglycinemia; E87.0 Hyperosmolality and hypernatremia; K92.2 Gastrointestinal hemorrhage, unspecified; J96.22 Acute and chronic respiratory failure with hypercapnia; G30.9 Alzheimer's disease, unspecified; K21.9 Gastro-esophageal reflux disease without esophagitis; F41.9 Anxiety disorder, unspecified; M54.16 Radiculopathy, lumbar region; F32.A Depression, unspecified; G89.4 Chronic pain syndrome; N40.0 Benign prostatic hyperplasia without lower urinary tract symptoms; E66.9 Obesity, unspecified; B97.89 Other viral agents as the cause of diseases classified elsewhere; B97.10 Unspecified enterovirus as the cause of diseases classified elsewhere; F20.9 Schizophrenia, unspecified; E78.5 Hyperlipidemia, unspecified; Z20.822 Contact with and (suspected) exposure to COVID-19; F17.210 Nicotine dependence, cigarettes, uncomplicated; R33.9 Retention of urine, unspecified; F10.21 Alcohol dependence, in remission; Z87.81 Personal history of (healed) traumatic fracture; Z91.81 History of falling; Z98.890 Other specified postprocedural states; Z88.0 Allergy status to penicillin; Z88.8 Allergy status to other drugs, medicaments and biological substances; Z79.82 Long term (current) use of aspirin; Z79.899 Other long term (current) drug therapy; Z79.52 Long term (current) use of systemic steroids; Z99.81 Dependence on supplemental oxygen; Z68.34 Body mass index [BMI] 34.0-34.9, adult
CPT/HCPCS: 0202U; 31500; 31720; 36415; 36600; 51701; 51702; 71045; 74018; 80048; 80053; 80069; 80076; 81001; 82803; 82947; 83036; 83605; 83690; 83735; 83880; 84100; 84145; 85025; 85027; 87040; 87070; 87077; 87185; 87205; 93005; 93010; 94002; 94003; 94640; 94644; 94660; 94664; 94760; 94761; 94762; 96365-59; 96375-59; 97110; 97116; 97162; 97166; 97530; 97535; 99291-25; A9270; C9113; J0456; J1650; J1815; J1940; J1956; J2250; J2405; J2704; J2930; J3010; J7030; J7050; J7070; J7512

== ENCOUNTER → 2023-11-24 | Outpatient (CLI) | payer OTHER ==
[~2023-11-24] MED LIST changes: +1/2 NS 250ml250 ML; +IBU800 M1 PO; +INVEGA SUS IM; +Milk Of Ma400 MG/5 M PO
[2023-11-24 13:19] LABS: CHOL/HDL RATIO 2.2; Cholesterol 140 mg/dL (50-200); HDL Cholesterol 63 mg/dL (>39); LDL/HDL RATIO 0.8; Low Density Lipoprotein Chol 52 mg/dL (0-110); Triglycerides 127 mg/dL (30-160); Very Low Density Lipoprot Chol 25 mg/dL (6-32)
== END ==
LOC: LAB 10:47 → LAB SHORT 10:47
PROVIDERS: Registered Nurse
DX: Z51.81 Encounter for therapeutic drug level monitoring (principal); Z79.899 Other long term (current) drug therapy
CPT/HCPCS: 80061; 83036

== ENCOUNTER 2024-06-30 01:23 | Inpatient (IN) | payer OTHER ==
[~2024-06-30] VITALS: Ht 167.6 cm; Wt 90.4 kg
[~2024-06-30 01:23] MED LIST changes: -INVEGA SUS IM; +NYSTRIT TOP
[2024-06-30] MEDS ORDERED: Albuterol 2.5 MG/3 ML VIAL INH SCH (01:30)
[2024-06-30] MEDS ORDERED: MethylPREDNISolone Sod Succ 125 MG Vial IV ONE (01:30)
[2024-06-30 02:22] LABS: Base Excess Venous -0.1 mmol/L; Bicarbonate Venous 23.1 mmol/L (24.0-30.0); PCO2 Venous 51.7 mmHg (38-42); pH Blood Venous 7.31 (7.34-7.37)
[2024-06-30 02:23] LABS: Albumin, Blood 3.8 g/dL (3.4-5.0); Albumin/Globulin Ratio 1.5 (0.8-1.8); BASOPHILS ABSOLUTE AUTO 0.02 K/mm3 (0.00-0.23); BASOPHILS PERCENT AUTO 0 % (0-2); Bilirubin, Total 0.3 mg/dL (0.1-1.0); Bun/Creatinine Ratio 10.4 (12.0-20.0); Calcium, Blood 8.5 mg/dL (8.5-10.1); Creatinine, Blood 1.06 mg/dL (0.60-1.20); EOSINOPHILS ABSOLUTE AUTO 0.17 K/mm3 (0.00-0.68); EOSINOPHILS PERCENT AUTO 2 % (0-6); Globulin, Blood 2.5 g/dL (2.2-4.0); Hematocrit 38.9 % (37.0-53.0); Hemoglobin 13.3 g/dL (13.5-17.5); IMMATURE GRAN PERCENT AUTO 1 % (0-1); LYMPHOCYTES ABSOLUTE AUTO 0.42 K/mm3 (0.84-5.20); LYMPHOCYTES PERCENT AUTO 6 % (21-46); MONOCYTES ABSOLUTE AUTO 0.83 K/mm3 (0.16-1.47); MONOCYTES PERCENT AUTO 11 % (4-13); Mean Corpuscular HGB 34.1 pg (26.0-34.0); Mean Corpuscular HGB Conc 34.2 g/dL (31.5-36.5); Mean Corpuscular Volume 100 fL (80-100); NEUTROPHILS ABSOLUTE AUTO 5.99 K/mm3 (1.96-9.15); NEUTROPHILS PERCENT AUTO 80 % (41-73); Platelet Count 154 K/mm3 (150-400); RDW Coefficient Variation 12.8 % (11.7-14.2); RDW Standard Deviation 46.6 fL (35.1-46.3); Total Protein, Blood 6.3 g/dL (6.4-8.2); White Blood Cell Count 7.53 K/mm3 (4.00-11.30)
[2024-06-30 03:00] LABS: Influenza B, PCR NEGATIVE (NEGATIVE); Resp Syncytial Virus, PCR NEGATIVE (NEGATIVE)
[2024-06-30 03:50] LABS: Influenza A, PCR POSITIVE (NEGATIVE); SARS-Cov-2 (COVID-19) PCR, MMC POSITIVE (NEGATIVE)
[2024-06-30] MEDS ORDERED: Oseltamivir Phosphate 75 MG Cap PO ONE (04:00)
[2024-06-30] MEDS ORDERED: Ipratropium/Albuterol SulF 2.5-0.5MG/3 ML Amp INH SCH (04:20)
[2024-06-30] MEDS ORDERED: Ondansetron HCl 2 MG / ML 2ML Vial IV PRN (04:20)
[2024-06-30] MEDS ORDERED: FLU VACC TS2024-25(6MOS UP)/PF 45 MCG/0.5 ML SYRINGE IM ONE (04:20)
[2024-06-30] MEDS ORDERED: Remdesivir (EUA) 200 MG in NS 250 ML IV ONE (05:00)
[2024-06-30] MEDS ORDERED: Nicotine 21 MG PATCH TOP ONE (05:45)
[2024-06-30] MEDS ORDERED: Nicotine 21 MG PATCH TOP SCH (05:55)
[2024-06-30] MEDS ORDERED: PALI6TA PO (06:01)
[2024-06-30] MEDS ORDERED: TRELEGY ELLIPT1 EACH INH (06:06)
[2024-06-30] MEDS ORDERED: BUSP10 PO (06:07)
[2024-06-30] MEDS ORDERED: COMBIVENT RESPIM4 G1 INH (06:09)
[2024-06-30] MEDS ORDERED: MethylPREDNISolone Sod Succ 125 MG Vial IV SCH (08:00)
[2024-06-30] MEDS ORDERED: GuaiFENesin 600 MG TabCR PO SCH (09:00)
[2024-06-30 14:07] VITALS: BP 127/75
[2024-06-30] MEDS ORDERED: DIAZ10 PO (15:15)
[2024-06-30] MEDS ORDERED: LOPE2C PO (15:35)
[2024-06-30] MEDS ORDERED: Seroquel Xr50 MG PO (15:41)
[2024-06-30] MEDS ORDERED: Bisacodyl 10 MG Supp PR PRN (16:40)
[2024-06-30] MEDS ORDERED: Ibuprofen 400 MG Tab PO PRN (16:40)
[2024-06-30] MEDS ORDERED: Loperamide HCl 2 MG Cap PO PRN (16:45)
[2024-06-30] MEDS ORDERED: Acetaminophen 325 MG TABLET PO PRN (16:45)
[2024-06-30] MEDS ORDERED: QUEtiapine Fumarate 50 MG TAB PO PRN (16:45)
[2024-06-30] MEDS ORDERED: Magnesium Hydroxide Conc 10 ML UDC PO PRN (16:45)
[2024-06-30] MEDS ORDERED: Nystatin/Triamcinolone Ointment 15 GM TOP PRN (16:45)
[2024-06-30] MEDS ORDERED: Albuterol HFA200 ACT/6.7 GM INH INH PRN (16:55)
[2024-06-30] MEDS ORDERED: QUEtiapine Fumarate 50 MG TAB PO SCH ×2 (17:00→21:00)
[2024-06-30 18:17] VITALS: BP 127/75
--- NOTE | 2024-06-30 18:26 | NUR ---
ASSUMPTION OF CARE/SHIFT SUMMARY RECEIVED REPORT FROM CARLY PATCH WASHER. PT ARRIVED TO PCU AROUND 1345. PT STOOD UP FROM ER [facility] AND TRANSFERED TO PCU BED. A&O X4, CALM, COOPERATIVE TO CARE. SINUS RHYTHM, HR IN THE 90'S, DENIES CP. PRESSURE, NUMB/TINGLING, SBP STABLE. O2 >92% ON 2L VIA NC, PT DESATS OCASSIONALLY TO THE 80'S WHILE EATING AND TALKING, RECOVERS QUICKLY. PIV IN THE RIGHT ARM, S/L. PT DENIES ANY PAIN. PT WITH HX OF DEMENTIA/ALZHEIMERS, BED ALARM ON HE GETS UP ON HIS OWN. PT DENIES ANY QUESTIONS OR CONCERNS AT THIS TIME. WILL MONITOR PT AND REPORT TO GEODETIC ENGINEER RN.
[2024-06-30 20:49] VITALS: BP 113/64
[2024-06-30] MEDS ORDERED: Atorvastatin 40 MG Tab PO SCH (21:00)
[2024-06-30] MEDS ORDERED: Gabapentin 400 MG Cap PO SCH (21:00)
[2024-06-30] MEDS ORDERED: BusPIRone HCl 10 MG Tab PO SCH (21:00)
[2024-06-30] MEDS ORDERED: DiphenhydrAMINE HCL 25 MG Cap PO SCH (21:00)
[2024-06-30] MEDS ORDERED: dilTIAZem HCL 60 MG CAP.SR PO SCH (21:00)
[2024-06-30] MEDS ORDERED: Diazepam 5 MG Tab PO SCH (21:00)
[2024-06-30] MEDS ORDERED: Benztropine Mesylate 1 MG Tab PO SCH (21:00)
[2024-06-30] MEDS ORDERED: Oseltamivir Phosphate 6 MG/ML 1ML DOSE PO SCH (21:00)
[2024-07-01 03:58] VITALS: BP 112/81
[2024-07-01] MEDS ORDERED: Remdesivir (EUA) 100 MG in NS 250 ML IV SCH (06:00)
[2024-07-01 07:19] VITALS: BP 149/85
[2024-07-01] MEDS ORDERED: TRELLEGY ELLIPTA INH SCH (07:45)
[2024-07-01] MEDS ORDERED: Aspirin 81 MG TabEC PO SCH (09:00)
[2024-07-01] MEDS ORDERED: TRELEGY ELLIPTA INHALER INH SCH (09:00)
[2024-07-01] MEDS ORDERED: Paliperidone 1.5 MG TAB.ER.24 PO SCH (09:00)
[2024-07-01] MEDS ORDERED: Enoxaparin 40 MG/0.4 ML SYR SC SCH (09:00)
--- NOTE | 2024-07-01 09:57 | NUR ---
AM NOTE: PATIENT ALERT AND ORIENTED X3. FORGETFUL AND POOR HISTORIAN AT BASELINE. PATIENT STATES HE IS VERY SLEEPY. BED ALARM ON FOR SAFETY. PERRLA. DENIES OVERALL PAINS AND NUMBNESS/TINGLING. MOVING IND IN BED. UP WITH SBA FOR SAFETY AND CORD MANAGEMENT. TELE SHOWING SR WITH HR 80-90'S. DENIES CHEST PAIN/PRESSURE/PALPITATIONS. IV SALINE LOCKED. NO EDEMA NOTED. PPP. ON 2L NASAL CANNULA SATING MID 90'S. DENIES FEELING SOB. OCCASIONAL DESATS WITH TALKING AND COUGHING. DENIES SPUTUM PRODUCTION WITH COUGH. EVEN AND UNLABORED RESPIRATIONS AT REST. PATIENT STATES HE WEARS 2L AT HOME BUT NOT CONTINUOUS. BOWEL TONES PRESENT IN ALL QUADRANTS. TOLERATING PO DIET. DENIES ISSUES WITH VOIDING. USING URINAL IND. BILATERAL GROINS RED AND ITCHY. CLEANSED AND NYSTATIN CREAM APPLIED. CALL LIGHT IN REACH. PATIENT LAYING IN BED AT THIS TIME WATCHING TV AND DENIES NEEDS.
[2024-07-01 11:03] VITALS: BP 108/71
--- NOTE | 2024-07-01 13:19 | NUR ---
PATIENT CONCERNED WITH WHERE HIS WALLET, GLASSES AND CELLPHONE ARE. THIS RN PLACED CALL TO AURE. BANNER HAS PATIENTS BELONGINGS. PATIENT UPDATED. VITAL SIGNS STABLE. DR. BATEMAN AT BEDSIDE. NO NEW ORDERS FOR THIS RN TO PLACE. PATIENT REMAINS ON 2L NASAL CANNULA. CALL LIGHT IN REACH. SITTING UP IN RECLINER WITH CHAIR ALARM.
[2024-07-01 15:30] VITALS: BP 120/78
--- NOTE | 2024-07-01 16:41 | NUR ---
TRANSFER: NO ACUTE CHANGES. PATIENT TRANSFERRED UP TO MEDICAL FLOOR WITH ALL PERSONAL BELONGINGS. REMAINS ON 2L NASAL CANNULA. REPORTED OFF TO .
--- NOTE | 2024-07-01 16:58 | NUR ---
SHIFT SUMMARY 1540 RECEIVED PT TO RM 353 VIA W/C FROM PCU 12. PT ABLE TO TX SELF TO BED. SBA D/T O2 TUBING. PT ON 2L O2 CURRENTLY AND AT BASELINE. RECEIVED REPORT FROM PUMA RAINEY, PT ADMITTED FOR RESP FAIL R/T INFLU A AND COVID. PT IN DROPLET ISO. PT IS PLEASANT AND MOSTLY CO-OP. BED AND CHAIR ALARM USED FOR SAFETY, BUT PT DOESN'T LIKE IT. PT IS FALL RISK WITH TUBING. PT IS CONTINENT OF BLADDER, USING URINAL WITH SBA TO BTHRM. PT FROM [facility]. CURRENTLY SITTING IN CHAIR AT BS WATCHING TV. DENIES FURTHER NEEDS AT THIS TIME. CALL LT IN REACH.
[2024-07-01] MEDS ORDERED: Acetaminophen650 M1 PO (20:19)
[2024-07-01] MEDS ORDERED: DIPH50 PO (20:21)
[2024-07-01] MEDS ORDERED: ALBU3IS NEB (20:27)
[2024-07-01] MEDS ORDERED: ALMACONE SUSPE355 ML PO (20:28)
[2024-07-01] MEDS ORDERED: [UNRECOGNIZED DRUG - OTHER] PO (20:31)
[2024-07-01] MEDS ORDERED: Fleet Enema132 ML PR (20:31)
[2024-07-01] MEDS ORDERED: Seroquel Xr50 MG PO (20:36)
[2024-07-01] MEDS ORDERED: Triple Antibi28.4 G1 TOP (20:38)
[2024-07-01] MEDS ORDERED: Oseltamivir Phosphate 75 MG Cap PO SCH (21:00)
[2024-07-01 21:14] VITALS: BP 105/54
[2024-07-02] MEDS ORDERED: NS 250 ML IV PRN (04:55)
[2024-07-02 05:32] VITALS: BP 139/96
[2024-07-02 07:58] VITALS: BP 142/88
[2024-07-02 15:22] VITALS: BP 124/75
--- NOTE | 2024-07-02 17:23 | NUR ---
SHIFT SUMMARY: PT AOX2 TO PERSON AND SELF. PT NOT SURE WHERE HE IS OR WHY HE IS HERE, JUST KNOWS HE ISNT HOME. PLESANTLY CONFUSED, BUT CAN HYPER FIXATE AND GET ANXIOUS ABOUT RANDOM THINGS. TOLERATES MEDICATIONS WELL, IND IN THE ROOM AND RESTROOM. WILL CALL RANDOMLY FOR THINGS BUT FORGETS WHAT HE CALLED FOR. MILD PRODUCTIVE COUGH WITH GREEN SPUTUM. STATES THAT HE IS FEELING MUCH BETTER. ON 3L NC CURRENTLY. PT RESTING IN BED, BED IN LOWEST POSITION, CALL LIGHT IN REACH. CONTINUING CARE.
--- NOTE | 2024-07-02 17:45 | NUR ---
THIS [employer] HAS REVIEWED AND AGREES WITH ALL NOTES AND ASSESSMENTS BY REDD TORRES.
[2024-07-02 22:16] VITALS: BP 131/78
--- NOTE | 2024-07-03 05:39 | NUR ---
NOC SUMMARY- NO NEW ISSUES. PT HAS BEEN PLESANTLY CONFUSED AND COOPERATIVE. PT HAS BEEN VOIDING WELL. PT IS AMBULATING WELL. PT HAS BEEN SLEEPING SOUNDLY THROUGHOUT SHIFT. PT DENIES SOB. PT IS AWAKE AND RESTING QUIETLY. CALL LIGHT IN REACH.
[2024-07-03 05:41] VITALS: BP 124/85
[2024-07-03 06:24] LABS: Creatinine, Blood 0.75 mg/dL (0.60-1.20); Potassium, Blood 4.4 mmol/L (3.5-5.5)
[2024-07-03 07:53] VITALS: BP 135/86
[2024-07-03] MEDS ORDERED: GUAI600T33 PO (12:14)
[2024-07-03] MEDS ORDERED: Prednisone10 MG PO (12:16)
--- NOTE | 2024-07-03 16:05 | NUR ---
PT DISCHARGED BACK TO [facility] VIA [facility]SPORT. ALL VALUABLES RETURNED AND SENT WITH THE PT. DISCHARGE EDUCATION PROVIDED AND EDUCATED ON.
[2024-07-16] MEDS ORDERED: Paliperidone Palmitate 156 MG/ML SYR IM SCH (12:00)
== END 2024-07-03 16:02 | disposition home or self-care (01) | DRG 871 ==
LOC: ER 01:23 → MEDS 04:27 → PCU 04:27 → ERHOLD 04:27 → PCU 14:17 → MEDS 07-01 16:27
PROVIDERS: Emergency Medicine; Internal Medicine; ADMIT Student in an Organized Health Care Education/Training Program
PROC: XW033E5 Introduction of Remdesivir Anti-infective into Peripheral Vein, Percutaneous Approach, New Technology Group 5 (ICD-10-PCS; principal; 2024-06-30)
PROC: 3E03329 Introduction of Other Anti-infective into Peripheral Vein, Percutaneous Approach (ICD-10-PCS; 2024-06-30)
DX: A41.89 Other specified sepsis (principal); J96.21 Acute and chronic respiratory failure with hypoxia; U07.1 COVID-19; J96.22 Acute and chronic respiratory failure with hypercapnia; F02.818 Dementia in other diseases classified elsewhere, unspecified severity, with other behavioral disturbance; F03.94 Unspecified dementia, unspecified severity, with anxiety; F03.93 Unspecified dementia, unspecified severity, with mood disturbance; J44.1 Chronic obstructive pulmonary disease with (acute) exacerbation; J10.1 Influenza due to other identified influenza virus with other respiratory manifestations; E78.5 Hyperlipidemia, unspecified; I10 Essential (primary) hypertension; G89.4 Chronic pain syndrome; M54.16 Radiculopathy, lumbar region; F20.9 Schizophrenia, unspecified; N40.0 Benign prostatic hyperplasia without lower urinary tract symptoms; Z98.890 Other specified postprocedural states; Z88.0 Allergy status to penicillin; Z88.8 Allergy status to other drugs, medicaments and biological substances; Z79.899 Other long term (current) drug therapy; Z79.82 Long term (current) use of aspirin; Z87.81 Personal history of (healed) traumatic fracture
CPT/HCPCS: 0241U; 36415; 71045; 80048; 80053; 82803; 83880; 84145; 84484; 85025; 93005; 93010; 94640; 94644; 94664; 94760; 94762; 96374; 99285-25; A9270; J0248; J1650; J2919; J7050

== ENCOUNTER 2024-08-14 08:28 | Emergency (ER) | payer OTHER ==
[~2024-08-14] VITALS: Ht 175.3 cm; Wt 90.7 kg
[~2024-08-14 08:28] MED LIST changes: +ALMACONE SUSPE355 ML PO; +Acetaminophen650 M1 PO; +BUSP10 PO; +COMBIVENT RESPIM4 G1 INH; +DIPH50 PO; +Fleet Enema132 ML PR; +GUAI600T33 PO; +TRELEGY ELLIPT1 EACH INH; +Triple Antibi28.4 G1 TOP; +[UNRECOGNIZED DRUG - OTHER] PO
[2024-08-14] MEDS ORDERED: Ipratropium/Albuterol SulF 2.5-0.5MG/3 ML Amp INH ONE (08:40)
[2024-08-14 09:47] VITALS: BP 154/74
== END 2024-08-14 09:48 | disposition home or self-care (01) ==
LOC: ER 08:28
DX: J44.1 Chronic obstructive pulmonary disease with (acute) exacerbation (principal); G30.9 Alzheimer's disease, unspecified; F02.80 Dementia in other diseases classified elsewhere, unspecified severity, without behavioral disturbance, psychotic disturbance, mood disturbance, and anxiety; I10 Essential (primary) hypertension; N40.0 Benign prostatic hyperplasia without lower urinary tract symptoms; K21.9 Gastro-esophageal reflux disease without esophagitis; Z88.0 Allergy status to penicillin; Z88.8 Allergy status to other drugs, medicaments and biological substances; Z79.82 Long term (current) use of aspirin; Z79.51 Long term (current) use of inhaled steroids; Z79.899 Other long term (current) drug therapy
CPT/HCPCS: 71045; 94640; 94664; 99285-25

== ENCOUNTER 2024-11-03 12:28 | Emergency (ER) | payer OTHER ==
[~2024-11-03] VITALS: Ht 172.7 cm; Wt 86.2 kg
[2024-11-03 12:45] VITALS: BP 121/61
[2024-11-03 13:22] LABS: BASOPHILS ABSOLUTE AUTO 0.02 K/mm3 (0.00-0.23); BASOPHILS PERCENT AUTO 0 % (0-2); EOSINOPHILS ABSOLUTE AUTO 0.32 K/mm3 (0.00-0.68); EOSINOPHILS PERCENT AUTO 4 % (0-6); Hematocrit 45.6 % (37.0-53.0); Hemoglobin 15.3 g/dL (13.5-17.5); IMMATURE GRAN ABSOLUTE AUTO 0.04 K/mm3 (0.00-0.10); IMMATURE GRAN PERCENT AUTO 1 % (0-1); LYMPHOCYTES ABSOLUTE AUTO 1.28 K/mm3 (0.84-5.20); LYMPHOCYTES PERCENT AUTO 16 % (21-46); MONOCYTES PERCENT AUTO 9 % (4-13); Mean Corpuscular HGB 33.7 pg (26.0-34.0); Mean Corpuscular HGB Conc 33.6 g/dL (31.5-36.5); Mean Corpuscular Volume 100 fL (80-100); Mean Platelet Volume 10.2 fL (9.1-12.4); NEUTROPHILS ABSOLUTE AUTO 5.65 K/mm3 (1.96-9.15); NEUTROPHILS PERCENT AUTO 71 % (41-73); Platelet Count 194 K/mm3 (150-400); RDW Coefficient Variation 12.7 % (11.7-14.2); RDW Standard Deviation 47.5 fL (35.1-46.3); Red Blood Cell Count 4.54 M/mm3 (4.30-5.90); White Blood Cell Count 8.01 K/mm3 (4.00-11.30)
[2024-11-03 13:35] LABS: Albumin, Blood 4.1 g/dL (3.4-5.0); Albumin/Globulin Ratio 1.5 (0.8-1.8); Bilirubin, Total 0.3 mg/dL (0.1-1.0); Bun/Creatinine Ratio 12.2 (12.0-20.0); Calcium, Blood 9.4 mg/dL (8.5-10.1); Creatinine, Blood 0.9 mg/dL (0.60-1.20); Globulin, Blood 2.7 g/dL (2.2-4.0); Potassium, Blood 5.1 mmol/L (3.5-5.5); Total Protein, Blood 6.8 g/dL (6.4-8.2)
== END 2024-11-03 16:49 | disposition home or self-care (01) ==
LOC: ER 12:28
PROVIDERS: Emergency Medicine
DX: R41.82 Altered mental status, unspecified (principal); Z88.0 Allergy status to penicillin; Z88.8 Allergy status to other drugs, medicaments and biological substances; Z79.2 Long term (current) use of antibiotics; Z79.82 Long term (current) use of aspirin; Z79.899 Other long term (current) drug therapy; I10 Essential (primary) hypertension; J44.9 Chronic obstructive pulmonary disease, unspecified; K21.9 Gastro-esophageal reflux disease without esophagitis; F17.210 Nicotine dependence, cigarettes, uncomplicated
CPT/HCPCS: 70450; 71045; 80053; 83880; 84484; 85025; 93005; 93010; 99285-25

== ENCOUNTER 2024-11-14 11:42 | Emergency (ER) | payer OTHER ==
[~2024-11-14] VITALS: Ht 175.3 cm; Wt 97.5 kg
[2024-11-14 12:10] LABS: BASOPHILS ABSOLUTE AUTO 0.04 K/mm3 (0.00-0.23); BASOPHILS PERCENT AUTO 0 % (0-2); EOSINOPHILS ABSOLUTE AUTO 0.24 K/mm3 (0.00-0.68); EOSINOPHILS PERCENT AUTO 3 % (0-6); Hematocrit 41.7 % (37.0-53.0); IMMATURE GRAN PERCENT AUTO 1 % (0-1); LYMPHOCYTES ABSOLUTE AUTO 1.35 K/mm3 (0.84-5.20); LYMPHOCYTES PERCENT AUTO 14 % (21-46); MONOCYTES ABSOLUTE AUTO 0.75 K/mm3 (0.16-1.47); MONOCYTES PERCENT AUTO 8 % (4-13); Mean Corpuscular HGB 34.1 pg (26.0-34.0); Mean Corpuscular HGB Conc 33.6 g/dL (31.5-36.5); Mean Corpuscular Volume 102 fL (80-100); Mean Platelet Volume 9.5 fL (9.1-12.4); NEUTROPHILS ABSOLUTE AUTO 7.17 K/mm3 (1.96-9.15); NEUTROPHILS PERCENT AUTO 74 % (41-73); Platelet Count 193 K/mm3 (150-400); RDW Coefficient Variation 12.7 % (11.7-14.2); RDW Standard Deviation 47.2 fL (35.1-46.3); Red Blood Cell Count 4.11 M/mm3 (4.30-5.90); White Blood Cell Count 9.65 K/mm3 (4.00-11.30)
[2024-11-14 12:52] LABS: Albumin, Blood 3.5 g/dL (3.4-5.0); Albumin/Globulin Ratio 1.5 (0.8-1.8); Bilirubin, Total 0.3 mg/dL (0.1-1.0); Calcium, Blood 8.2 mg/dL (8.5-10.1); Creatinine, Blood 0.86 mg/dL (0.60-1.20); Globulin, Blood 2.4 g/dL (2.2-4.0); Potassium, Blood 3.9 mmol/L (3.5-5.5); Total Protein, Blood 5.9 g/dL (6.4-8.2)
[2024-11-14 13:09] LABS: Influenza A, PCR NEGATIVE (NEGATIVE); Influenza B, PCR NEGATIVE (NEGATIVE); Resp Syncytial Virus, PCR NEGATIVE (NEGATIVE); SARS-Cov-2 (COVID-19) PCR, MMC NEGATIVE (NEGATIVE)
[2024-11-14] MEDS ORDERED: Azithromycin 250 MG Tab PO ONE (13:15)
[2024-11-14 13:30] VITALS: BP 135/86
[2024-11-14] MEDS ORDERED: PRED20 PO (13:46)
[2024-11-14] MEDS ORDERED: AZIT250 PO (13:46)
[2024-11-14] MEDS ORDERED: RX Prepack Albuterol 1 PREPACK/6.7 GM INH UD ONE (13:55)
== END 2024-11-14 14:00 | disposition home or self-care (01) ==
LOC: ER 11:42
PROVIDERS: Emergency Medicine
DX: J44.1 Chronic obstructive pulmonary disease with (acute) exacerbation (principal); J44.0 Chronic obstructive pulmonary disease with (acute) lower respiratory infection; J18.9 Pneumonia, unspecified organism; I10 Essential (primary) hypertension; E78.5 Hyperlipidemia, unspecified; G30.9 Alzheimer's disease, unspecified; F02.80 Dementia in other diseases classified elsewhere, unspecified severity, without behavioral disturbance, psychotic disturbance, mood disturbance, and anxiety; N40.0 Benign prostatic hyperplasia without lower urinary tract symptoms; K21.9 Gastro-esophageal reflux disease without esophagitis; F17.210 Nicotine dependence, cigarettes, uncomplicated; Z88.0 Allergy status to penicillin; Z88.8 Allergy status to other drugs, medicaments and biological substances; Z79.82 Long term (current) use of aspirin; Z79.51 Long term (current) use of inhaled steroids; Z79.52 Long term (current) use of systemic steroids; Z79.899 Other long term (current) drug therapy
CPT/HCPCS: 0241U; 71046; 80053; 85025; 93005; 93010; 99285-25; A9270